=== PATIENT | male | born 1955 | race American Indian/Alaskan Native ===

== ENCOUNTER 2024-10-28 04:05 | Inpatient (IN) | payer MEDICARE, BC, SELFPAY ==
[2024-10-28] VITALS (54 sets, daily range): BP systolic 74–115; BP diastolic 48–64; BMI 23.8; BMI 23.3
[2024-10-28 02:07] LABS: Hematocrit 32.3 % (39.0-52.0); Hemoglobin 11.1 g/dL (13.0-18.0); Mean Corp Hgb Conc. 34.4 g/dL (33.0-37.0); Mean Corpuscular Volume 86.8 fL (80.0-94.0); Nucleated Red Blood Cells % 0 % (-); Platelet Count 213 10^3/uL (130-400); Red Cell Dist. Width 13.2 % (11.5-14.5)
[2024-10-28 02:17] LABS: INR 1.03; PT 14.0 Sec (11.4-14.6)
[2024-10-28] MEDS: NITROSTAT (SUBLINGUAL) 0.4 MG SL (02:21)
[2024-10-28 02:29] LABS: ALT (SGPT) 37 U/L (0-50); AST (SGOT) 70 U/L (17-59); Albumin 4.9 g/dl (3.5-5.0); Alkaline Phosphatase 34 U/L (38-126); Blood Urea Nitrogen 17 mg/dl (9-20); Calcium 9.5 mg/dl (8.4-10.2); Carbon Dioxide 22 mmol/L (22-30); Chloride 98 mmol/L (98-107); Estimated Creatinine Clearance 66 ml/min; Glucose 147 mg/dl (70-99); Potassium 3.8 mmol/L (3.5-5.1); Sodium 132 mmol/L (135-145); Total Protein 7.5 g/dl (6.3-8.2); eGFR > 60.00
[2024-10-28] MEDS: NSS 1000 IV (02:38)
[2024-10-28 02:43] LABS: Troponin I 6.590 ng/ml
--- NOTE | 2024-10-28 03:15 | ED.GENMED ---
History of Present Illness
General
Chief Complaint: Chest Pain
Source: patient and family
Exam Limitations: none
Time Seen by Provider: 10/28/24 02:00
Nursing documentation reviewed up to this point in time: agreed with
History of Present Illness
History of Present Illness:
Note:
CHIEF COMPLAINT(S)
Stomach pain.
HISTORY OF PRESENT ILLNESS
The patient is a 69-year-old male presenting with stomach pain that began yesterday, around 3 or 4 in the afternoon. The patient describes the pain as primarily located in the upper epigastric region and denies any radiation of the pain. The
discomfort has been persistent and severe enough to disrupt sleep. The patient has an extensive cardiac history, including a history of stenting, though all cardiac care has been performed in [facility]. Current medications include aspirin 100 mg
daily. The patient reports discomfort upon presentation, with an electrocardiogram (EKG) showing changes suggestive of ischemia.
EXTERNAL RECORDS REVIEWED
Previous EKG from 2008 was reviewed, and current EKG shows significant changes indicating potential ischemia.
CHRONIC MEDICAL CONDITIONS SIGNIFICANTLY AFFECTING CARE
The patient has a history of cardiac stenting and potentially elevated cholesterol, as indicated by medication use.
FAMILY HISTORY
Both parents had a history of heart attacks.
SOCIAL HISTORY
The patient previously smoked but quit in 1989.
MEDICATIONS
Aspirin 100 mg daily.
REVIEW OF SYSTEMS
- Cardiovascular: Reports chest discomfort/nonspecific epigastric discomfort.
- Gastrointestinal: Reports epigastric pain without radiation.
PHYSICAL EXAM
General: Alert, minimal acute distress.
Skin: Warm, dry.
Head: Normocephalic, atraumatic.
Neck: Supple, trachea midline.
Eye, Ears, Nose, Mouth and Throat: Oral mucosa moist.
Cardiovascular: Normal peripheral perfusion, No edema.
Respiratory: Respirations are non-labored.
Gastrointestinal: Abdomen nondistended.
Back: Normal range of motion, Normal alignment.
Musculoskeletal: Normal ROM, normal strength.
Neurological: Alert and oriented to person, place, time, and situation, No focal neurological deficit observed.
Psychiatric: Cooperative, appropriate mood & affect.
PROBLEM LIST
Acute Problems:
- Chest pain/epigastric discomfort
- EKG changes suggestive of ischemia
PLAN
The plan includes performing serial EKGs over the next hour, obtaining blood work, and providing medication therapy starting with aspirin and nitroglycerin to alleviate chest discomfort. The patient is instructed to report any improvement,
worsening, or changes in symptoms for further evaluation and potential escalation of care to catheterization if indicated.
DIFFERENTIAL DIAGNOSIS
The Differential Diagnosis includes, in no particular order and is not limited to:
1. Myocardial Ischemia
2. Acute Coronary Syndrome
3. Gastroesophageal Reflux Disease
4. Peptic Ulcer Disease
5. Pericarditis
6. Esophageal Spasm
7. Gastritis
8. Pancreatitis
9. Aortic Dissection
10. Anxiety-Induced Chest Pain
Disposition:
SUMMARY OF ENCOUNTER
The patient, a 69-year-old male with a history of cardiac procedures including stenting performed in [facility], presented to the emergency department with substernal chest pain that began approximately 12 hours prior to arrival. An electrocardiogram
(EKG) showed diffuse ischemic changes compared to a 2008 EKG, with no more recent EKGs available for comparison. The patients troponin level was elevated, consistent with ischemic changes. After consultation with the patients individual
voice systems engineer, it was determined that there was no need for a ST-elevation myocardial infarction (STEMI) alert, but the voice systems engineer concurred with the ischemic findings. The plan is to keep the patient for observation and cardiac catheterization in
the morning. The chest discomfort has somewhat improved since arrival.
DISPOSITION
Admit
ASSESSMENT
The patients presentation is consistent with myocardial ischemia, as evidenced by the EKG findings and elevated troponin levels.
MANAGEMENT OF THE PATIENTS CARE WAS DISCUSSED WITH
The patient�s individual voice systems engineer was consulted and agreed with the interpretation of the EKG and the plan for management, including admission and planned catheterization.
DIAGNOSIS
Myocardial Ischemia - ICD-10 Code: I25.10
Review of Systems
Review of Systems
Allergies reviewed?: Yes
All Other Systems: ROS reviewed and negative except as documented in HPI and ROS
Constitutional: Reports no symptoms
EENT: Reports no symptoms
Respiratory: Reports no symptoms
Cardiac: Reports chest pain
ABD/GI: Reports no symptoms
: Reports no symptoms
Musculoskeletal: Reports no symptoms
Skin: Reports no symptoms
Neurological: Reports no symptoms
Endocrine: Reports no symptoms
Hematologic/Lymphatic: Reports no symptoms
Psychiatric: Reports no symptoms
Phy Exam
General Physical Exam
General Presentation: mild distress
General Skin: warm and dry
General Habitus: normal
General Mental: alert
General Hydration: appears well hydrated
ENT Exam
ENT Exam: EOMI, pharynx normal, neck supple and normocephalic
Eye Exam
Eye Exam: PERRL, cornea clear and conjunctiva normal
Cardiovascular Exam
Cardiovascular Exam: regular rate/rhythm, no edema, no murmur and normal peripheral pulses
Pulmonary Exam
Pulmonary Exam: lungs clear, no respiratory distress, no rales, no crackles, no rhonchi, no stridor, no wheezing and no cough
Gastrointestinal Exam
Gastrointestinal Exam: normal bowel sounds, non tender, soft, no organomegaly, no pulsatile mass and non distended
Neurological Exam
Neurological Exam: alert, oriented x3, no motor deficits and speech normal
Musculoskeletal Exam
Musculoskeletal Exam: full ROM and no edema
Skin Exam
Skin Exam: normal color, warm/dry, no rash and no petechia
Psychiatric Exam
Psychiatric Exam: normal mood/affect
Scores
Heart Score for Chest Pain Patients
STEMI patient?: No
History: Highly Suspicious
ECG: Significant ST-Depression
Age: >/= 65 years
Risk Factors: >/= 3 Risk Factors or History of CAD
Troponin: >/= 3 x Normal Limit
Heart Score for Chest Pain Patients: 10
Heart Score Risk: 72.7 % MACE over next 6 weeks
Course
Orders/Labs/Results
Orders:
Orders
10/28/24 01:43
ECG [Electrocardiogram (*1)] Urgent
Reason for Study: Chest Pain
EKG- Treatment ONCE
10/28/24 01:54
Electrocardiogram (*1) Urgent
Reason for Study: Other
Other Reason for Exam: Respiratory Distress
Cardiac Monitoring- Treatment ONCE
EKG- Treatment ONCE
IV Insert/Care/Rem.- Treatment PRN
O2 Therapy [RESP] Urgent
Titrate/Wean O2 to maintain O2 sat greater than (%): 93
Special Instructions: TO MAINTAIN CONTINUOUS O2 SATS >/= 93%
Pulse Ox/cont/shift [RESP] Urgent
Quantity: 1
Special Instructions: continuous pulse ox
10/28/24 01:56
Complete Blood Count/With Diff Urgent
Comprehensive Metabolic Panel Urgent
Glycohemoglobin (HgbA1c) Urgent
NT-proBNP Urgent
Troponin I Urgent
10/28/24 01:59
PT/INR [Prothrombin Time] Urgent
Is patient on Coumadin/Warfarin?: No
10/28/24 02:00
Nitroglycerin Sublingual [Nitrostat (Sublingual)] 0.4 mg SL [id number] PRN
10/28/24 02:01
CR Chest Portable - 1 View Urgent
Comment:
Reason For Exam: cp
Reason Study Needs to be Portable: Patient Unstable
10/28/24 02:08
Electrocardiogram (*1) Urgent
Reason for Study: Chest Pain
EKG- Treatment ONCE
10/28/24 02:36
0.9% Sodium Chloride 1000 ml [Nss] 1,000 ml IV 250 mls/hr
10/28/24 02:59
EKG PRN [ECG as needed] As Directed
ECG as needed for:: Chest Pain
Rhythm Change
10/28/24 03:03
Heparin 3,800 units IV NOW STA
Nursing to Place Non Medication Order As Directed
Physician Order: PTT 6 hours after initial start of Heparin infusion
10/28/24 03:15
Heparin 61830 Units/250 ml 25,000 units in 250 ml IV PER PROTOCOL
Weight to be used for heparin protocol in kilograms (kg):: 62.8
Protocol:: Cardiac Tx/Acute Coronary
PTT Goal Range to be used:: PTT 73 to 111 seconds
Order type:: Initial
INITIAL Infusion Dose (UNITS/KG/hr) & then follow protocol:: 15 units/kg/hr
Infusion Dose in UNITS/hr & then follow protocol (UNITS/hr):: 950
INFUSION RATE in mL/hr & then follow protocol (mL/hr):: 9.5
PTT less than or equal to 64 seconds:: Increase rate by 200 units/hr (+ 2 mL/hr)
PTT 64.1 to 72.9 seconds:: Increase rate by 100 units/hr (+ 1 mL/hr)
PTT 73 to 111 seconds:: Target Range. No change in rate.
PTT 111.1 to 130.9 seconds:: Decrease rate by 100 units/hr (- 1 mL/hr)
PTT 131 to 199.9 seconds:: HOLD for 1 hr. Then decrease rate by 200 units/hr (- 2 mL/hr)
PTT greater than or equal to 200 seconds:: HOLD for 2 hrs & Notify Provider. Then decrease by 200 units/hr (-
2 mL/hr)
Lab follow-up:: Each change, PTT q6h until 2 consecutive are therapeutic. Then PTT
daily.
10/28/24 03:19
Morphine Sulfate 4 mg IV NOW STA
Ondansetron Injectable [Zofran] 4 mg IV NOW STA
10/28/24 03:44
Admit/Transfer Patient As Directed
Co-Sign Provider:
Level of Care: Inpatient admission
Assign to:: IVU
Physician / Group: Chema
Diagnosis: NSTEMI / ACS
Reason for Hospitalization: NSTEMI / ACS
Expected length of stay greater than two midnights?: Yes
ELOS- Estimated Length of Stay in days: 3
I certify the patient meets the requirements for IP care: Yes
PRN Pain Medication Management As Directed
May give lesser potent ordered pain med per pt: Yes
preference::
Protocol:: Medication orders for pain may be administered in a
manner that supports deferring to patient preference
when the pt is:
- Requesting an ordered lesser potent pain medication.
Least to most potent pain medications are defined
as: acetaminophen < NSAID < tramadol < opioids
(morphine, oxycodone, hydromorphone).
- Requesting a lesser dose of the same medication IF
ORDERED.
- Requesting a less intrusive route of administration
if both routes are prescribed by the provider (PO <
IV).
10/28/24 03:45
Code Status As Directed
Resuscitation Status: Full Code
10/28/24 Breakfast
NPO
Allow oral meds: Yes
Allow clear liquids: Sips of Clears
10/28/24 06:19
Acetaminophen [Tylenol] 650 mg PO Q4HPRN PRN
Dextrose 50%-Water [Dextrose 50% Syringe] 12.5 grams IV [id number] PRN
Glucagon [GlucaGen] 1 mg IM PRN PRN
Morphine Sulfate 2 mg IV Q4HPRN PRN
Nitroglycerin Sublingual [Nitrostat (Sublingual)] 0.4 mg SL [id number] PRN
10/28/24 06:19
CARDIOLOGY CONSULT Routine
Consulting Provider: Sarthak Houser
Was physician already notified: Yes
Reason for consult: NSTEMI / ACS
Heparin Protocol- PTT Orders As Directed
PTT per Heparin protocol: -Obtain CBC and baseline PTT - if not already collected.
-Obtain PTT 6 hours from start of infusion. Then, every 6 hours until 2 consecutive
PTT's are therapeutic. Then, PTT Daily.
-With each rate change, obtain PTT every 6 hours until 2 consecutive PTT's are
therapeutic. Then, PTT Daily.
Activity As Directed
Activity Level: Bedrest
Bathroom Privileges
Comment: staND TO VOID ONLY
Bedside Glucose Monitoring As Directed
Frequency: AC&HS
Additional Instructions:: Change to q6h if pt on TPN, tube feeding or not eating
Bladder Scan As Directed
Follow Bladder Retention/Intermittent Cath Algorithm?: Yes
PRN if no void in __ hours: 6
Frequency: Per Retention Algorithm
If Bladder Scan Result >: 400
then:: Straight cath
EKG with chest pain [ECG as needed] As Directed
ECG as needed for:: Chest Pain
I/O [Intake/ Output] As Directed
Frequency: Per unit guidelines
Notify MD As Directed
Notify physician if: PTT is greater than or equal to 200.
Straight Cath As Directed
Frequency: Per Retention Algorithm
Additional Instructions: straight cath as needed per acute urinary retention algorithm for 24 hrs
Additional Instructions: for bladder scan greater than 400 mL
Vital Signs As Directed
Frequency: Per unit guidelines
Weight As Directed
Frequency: Daily
Oxygen Therapy [O2 Therapy] [RESP] Routine
Titrate/Wean O2 to maintain O2 sat greater than (%): 94
10/28/24 06:38
Troponin I Q6H
10/28/24 07:30
Insulin Aspart Corrective Low [Novolog Flexpen-Low Resistance] See Protocol SC AC
10/28/24 08:00
Aspirin Low Dose EC [Aspir Low (Enteric Coated)] 81 mg PO DAILY
Pantoprazole [Protonix IV] 40 mg IV DAILY
10/28/24 09:19
PTT Urgent
Comment: Obtain baseline before beginning heparin infusion if not already collected
10/28/24 12:19
Troponin I Q6H
10/28/24 18:00
Rosuvastatin Calcium [Crestor] 40 mg PO QPM
10/28/24 18:19
Troponin I Q6H
10/29/24 06:00
EKG [Electrocardiogram (*1)] IN AM
Reason for Study: Chest Pain
Basic Metabolic Panel IN AM
Cardiovascular Evaluation IN AM
10/30/24 06:00
Complete Blood Count/No Diff Q2D
Comment: notify provider: Platelet count < 130,000 or decrease by 50% from baseline
11/01/24 06:00
Complete Blood Count/No Diff Q2D
Comment: notify provider: Platelet count < 130,000 or decrease by 50% from baseline
11/03/24 06:00
Complete Blood Count/No Diff Q2D
Comment: notify provider: Platelet count < 130,000 or decrease by 50% from baseline
11/05/24 06:00
Complete Blood Count/No Diff Q2D
Comment: notify provider: Platelet count < 130,000 or decrease by 50% from baseline
11/07/24 06:00
Complete Blood Count/No Diff Q2D
Comment: notify provider: Platelet count < 130,000 or decrease by 50% from baseline
11/09/24 06:00
Complete Blood Count/No Diff Q2D
Comment: notify provider: Platelet count < 130,000 or decrease by 50% from baseline
11/11/24 06:00
Complete Blood Count/No Diff Q2D
Comment: notify provider: Platelet count < 130,000 or decrease by 50% from baseline
11/13/24 06:00
Complete Blood Count/No Diff Q2D
Comment: notify provider: Platelet count < 130,000 or decrease by 50% from baseline
Abnormal Lab Results
10/28/24
01:56
WBC 12.0 H 10^3/uL
(4.8-10.8)
RBC 3.72 L 10^6/uL
(4.70-6.10)
Hgb 11.1 L g/dL
(13.0-18.0)
Hct 32.3 L %
(39.0-52.0)
MPV 10.8 H fL
(7.4-10.4)
Absolute Neuts (auto) 8.0 H 10^3/uL
(1.4-6.5)
Absolute Monos (auto) 1.2 H 10^3/uL
(0.1-0.6)
Monocytes % 10.1 H %
(1.7-9.3)
Sodium 132 L mmol/L
(135-145)
Glucose 147 H mg/dl
(70-99)
AST 70 H U/L
(17-59)
Alkaline Phosphatase 34 L U/L
(38-126)
Troponin I 6.590 H* ng/ml
10/28/24 01:56
10/28/24 01:56
Vital Signs
Initial and Last Documented VS:
Initial Vital Signs
Temp Pulse Resp BP Pulse Ox
98.1 F 80 18 100/50 100
10/28/24 01:47 10/28/24 01:47 10/28/24 01:47 10/28/24 01:47 10/28/24 01:47
Last Documented Vital Signs
Temp Pulse Resp BP Pulse Ox
98.1 F 82 26 95/57 95
10/28/24 01:47 10/28/24 06:45 10/28/24 06:45 10/28/24 06:45 10/28/24 06:45
*Pulse Oximetry
SaO2: 100
Oxygen Mode of Delivery: Room air
Patient hypoxic: no
*Critical Care Note
Total Time (30-74mins, 75-104mins- exclusive of procedures): 33 (Critical care statement: A total of 33 minutes of critical care time was provided for this patient. This time is separate from time utilized to perform the aforementioned documented
procedures. Aggregate critical care time includes only time during which I was engaged in work [facility])
Update Note
Update Note:
Initial EKG at 1:[address] elevations in a singular lead aVR with ischemia present in 2 3 and aVF as well as V6 V5 V4 and V3 as indicated by deep ST depressions. This is a change from previous EKG in 2008. EKG taken at 2:13 AM is very
similar morphology as well as the EKG taken at 3:01 AM. All EKGs indicate inferior lateral ischemia
ED Attending Note
-
Portions of this chart may have been created with voice recognition software.� Occasional wrong word or��sound alike� substitutions may have occurred due to the inherent limitations of voice recognition software.
Discharge Plan
Departure
Patient Disposition: Admit
Date of Disposition: 10/28/24
Time of Disposition: 03:17
Admit to: IVU
Presentation/result/management discussed w/ accepting MD/DO: Hospitalist
Condition: Serious
Discharge Problem:
Non-ST elevated myocardial infarction (non-STEMI)
Interventions
Interventions:
*Risk Screen - Suicide Last Done: 10/28/24 02:03
*General Assessment Last Done: 10/28/24 02:03
*Neglect/Abuse Screening Last Done: 10/28/24 02:03
*ED- Fall Risk Assessment Last Done: 10/28/24 02:03
*ED COVID-19 Vaccine History Last Done: 10/28/24 02:03
*Nursing Disposition Last Done: 10/28/24 06:05
ED- Cardiac Assessment Last Done: 10/28/24 02:03
Discharge Date and Time
Discharge Date/Time: 10/28/24 06:05
[2024-10-28] MEDS: HEPARIN 3800 UNITS IV (03:18)
[2024-10-28] MEDS: HEPARIN 25000 UNITS/250 ML IV ×2 (03:19→19:28)
[2024-10-28] MEDS: ZOFRAN 4 MG IV ×2 (03:38→18:27)
[2024-10-28] MEDS: MORPHINE SULFATE 4 MG IV (03:43)
--- NOTE | 2024-10-28 03:47 | HPS.HSE ---
Family Physician
-
Family Physician: * NONE
Chief Complaint
-
Epigastric Pain
History of Present Illness
Patient is a 69y M with PMH significant for ASCVD and DM-II who presents to ED complaining of epigastric discomfort for > 24 hours. Patient states that the discomfort started Thursday afternoon around 3PM. He reports a fullness or pressure in
the epigastric region. He states that it felt as if he needed to belch but was unable to do so. He does note that the discomfort radiated into the jaw and into the L arm. He denies any associated nausea, dyspnea or diaphoresis. He states that
this discomfort has remained a steady 5/10 over the past 36 hours. He denies any prior history of similar symptoms.
In the ED patient appears to be resting comfortably; though, he continues to report 5/10 epigastric discomfort.
He has a prior history of PTCA with stent x 2 in 2019. He has mostly been followed by physicians in [facility].
Medical History
Past Medical History
Past Medical History: Reports Other
Additional Past Medical History:
ASCVD
DM-II
BPH
GERD / H pylori
MASLD
Past Surgical History: Reports Other
Additional Past Surgical History:
PTCA with Stent x 2 (2019)
Cataracts
Social History
Tobacco: Former Smoker (Quit smoking in 1989.)
Alcohol: Occasional (Rare)
Personal:
Family History
Family History: Other (Mother / Father: CAD)
Allergies / Home Medications
Allergies reflects when Allergies were last updated in [employer].
Home Medications with original date entered in [employer]
Allergy/Medication List:
Allergies
Allergy/AdvReac Type Severity Reaction Status Date / Time
Penicillins Allergy Unknown Verified 02/24/09 13:50
Home Medications
aspirin 81 mg tablet 100 mg PO DAILY 02/24/09
simvastatin 10 mg tablet 20 mg PO DAILY 02/24/09
bisoprolol fumarate 2.5 mg tablet 2.5 mg PO DAILY 10/28/24
metformin 500 mg tablet 500 mg PO BID 10/28/24
montelukast 10 mg tablet 10 mg PO DAILY 10/28/24
rosuvastatin 20 mg tablet 20 mg PO DAILY 10/28/24
silodosin 8 mg capsule 8 mg PO DAILY 10/28/24
valsartan 80 mg tablet (Diovan) 80 mg PO DAILY 10/28/24
Review of Systems
-
History Source: Patient
A 12 point ROS was completed and negative except as noted: Yes
Constitutional: Denies Fever, Fatigue or Chills
EENT: Denies Sore Throat
Respiratory: Denies Cough or Trouble Breathing
Cardiac: Reports Chest Pain; Denies Diaphoresis, Palpitations or Syncope
Abdomen/GI: Reports Abdominal Pain; Denies Nausea, Vomiting, Diarrhea, Bloody Stools or Black Stools
: Denies Dysuria or Frequency
Musculoskeletal: Denies Joint Pain or Edema
Neurological: Denies Dizzy or Headache
Psych: Denies Depression or Anxiety
Physical Exam
Vital Signs
Vital Signs
Temp Pulse Resp BP Pulse Ox
98.1 F 80 19 74/50 100
10/28/24 01:47 10/28/24 02:15 10/28/24 01:57 10/28/24 02:26 10/28/24 03:16
Physical Exam
General: Other (69y M in no acute distress.)
HEENT: Moist mucous membranes and PERRLA
Respiratory: Other (Few bibasilar rales. No wheeze / rhonchi.)
Cardiac: S1/S2 and Regular Rhythm; No Murmur
GI: Soft, Non Tender, Non Distended and Normal Bowel Sounds
Musculoskeletal: No Clubbing, No Cyanosis and No Edema
Neuro: AO x 3
Laboratory Results
-
10/28/24 01:56
10/28/24 01:56
Laboratory Results
PT 14.0 Sec (11.4-14.6) 10/28/24 01:59
INR 1.03 10/28/24 01:59
Total Bilirubin 1.1 mg/dl (0.2-1.3) 10/28/24 01:56
AST 70 U/L (17-59) H 10/28/24 01:56
ALT 37 U/L (0-50) 10/28/24 01:56
Alkaline Phosphatase 34 U/L (38-126) L 10/28/24 01:56
Troponin I 6.590 ng/ml H* 10/28/24 01:56
Impression/Plan
-
A/P: Patient is a 69y M with PMH significant for ASCVD, DM-II and GERD who presents to ED complaining of epigastric pain for > 24 hours.
NSTEMI / ACS
ASCVD
- Admit to IVU for further evaluation and treatment.
- Discomfort for > 24 hours, ischemic-appearing EKG and abnormal troponin (6.59 on initial set).
- IV heparin, morphine / NTG as needed for symptom control.
- ASA daily. High-intensity statin. Check lipids, A1C, etc.
- Cardiology consulted for likely ischemic evaluation in the AM.
- Follow serial troponin to peak.
- Monitor for any new / worsening symptoms.
- IVF boluses as needed to maintain adequate BP / perfusion.
- Hold valsartan and bisoprolol acutely. Caution with preload reducing agents given hypotension.
DM-II
MASLD
- Stable. Hold metformin.
- Follow glucose and cover with SSI as needed.
- Update A1C.
GERD
- PPI daily - but suspect current symptoms are more cardiac in origin given EKG, troponin changes, etc.
BPH
- Stable. Hold silodosin acutely given hypotension.
- Bladder scan protocol.
DVT Prophylaxis: On IV Heparin
Code Status: Full
--- NOTE | 2024-10-28 06:19 | PTCARENOTE ---
Patient received from the ED via stretcher accompanied by RN. Transferred and admitted to ICU bed 3362. CHG bath, fresh linens, placed on CM. SR with 1st degree AVB and BBB. No N/V, dizziness or SOB. C/o mild substernal chest discomfort 07/14
unchanged from previous. Patient c/o urge to void and inability to do so. Bladder scan performed after patient voided 50cc; 783cc noted. Abdomen with palpable bladder. Assisted to sit at bedside with void unsuccessful. Contacted Caprice Hernandes [facility] for
orders for patient to stand at the bedside to void, received. Patient assisted to stand at bedside, no dizziness, SOB or worsening chest discomfort. Voids 600cc. Troponin drawn. Heparin gtt at 950units/hr to right wrist IV site, WDL. Left AC #18
with good blood return and flushes easily. NPO. Weight obtained. Bed in low and locked position. Call park within reach. Report given verbally to oncoming shift, Tess DAVIS. Questions answered.
[2024-10-28 07:26] LABS: Troponin I 5.900 ng/ml
--- NOTE | 2024-10-28 07:30 | PTCARENOTE ---
Received patient A&Ox4, on NC 2L, O2 sat @97%, NSR w/ RBB in 80s, BP soft, denied chest pain currently, on Heparin gtt @9.5mL/hr, NPO, continent.
--- NOTE | 2024-10-28 07:49 | W.PN.HOSP.TC ---
Today's Communication/Plan
-
N.p.o.
Await cardiology input
Assessment / Plan
Assessment / Plan
Gen-AAOx3, NAD
HEENT-NC, AT, anicteric, clear oral mm
Neck-supple
CV-reg, no M, +S1/S2
Lungs-clear B/L
Abd-soft, NT, ND
Ext-no edema
Musculoskeletal-no cyanosis, clubbing
Skin-warm and dry
Neuro-grossly non-focal
Psych-calm, cooperative
ACS/NSTEMI -currently n.p.o., awaiting cardiology input and possible catheterization today. Troponin trending down. Denies any further symptoms.
Symptoms that prompted his admission consisted of a feeling of having to belch. Denied any chest pain or pressure. Did have some radiation to the jaw on the left arm.
DM2 without hyperglycemia -glucose 147 this morning. Hold metformin. Low resistance NovoLog scale. Check hemoglobin A1c.
Hyponatremia -present on admission. Monitor for now.
Essential hypertension -currently hypotensive but asymptomatic. Does not check blood pressures at home, encouraged patient to start checking.
Home meds consisting of bisoprolol and valsartan on hold for hypotension. Suspect hypotension is a chronic issue. Patient states that he was told he was hypotensive by previous physicians.
Normocytic anemia -unknown acuity, etiology. Monitor for now.
Hyperlipidemia -on simvastatin. Mild AST elevation noted, 70. ALT normal.
MASLD -outpatient follow-up.
BPH
GERD
Full code
Anticipated Discharge: 24 - 48 hours
Subjective/Interval History
-
Date of Service: October 28, 2024
Patient seen and examined. No complaints currently.
Objective Data
-
Labs:
Laboratory Results
10/28/24 10/28/24 10/28/24
01:56 01:59 03:03
WBC 12.0 H
Hgb 11.1 L
Hct 32.3 L
Plt Count 213
PT 14.0
INR 1.03
APTT Cancelled
Sodium 132 L
Potassium 3.8
Chloride 98
Carbon Dioxide 22
BUN 17
Creatinine 0.9
Glucose 147 H
Calcium 9.5
Total Bilirubin 1.1
AST 70 H
ALT 37
Alkaline Phosphatase 34 L
10/28/24
09:19
WBC
Hgb
Hct
Plt Count
PT
INR
APTT Pending
Sodium
Potassium
Chloride
Carbon Dioxide
BUN
Creatinine
Glucose
Calcium
Total Bilirubin
AST
ALT
Alkaline Phosphatase
Vital Signs:
Vital Signs
Temp Pulse Resp BP Pulse Ox
98.1 F 82 26 95/57 95
10/28/24 01:47 10/28/24 06:45 10/28/24 06:45 10/28/24 06:45 10/28/24 06:45
I&O
10/27/24 10/28/24 10/29/24
06:59 06:59 06:59
Output Total 600 / 600
Balance -600 / -600
Review of Systems
-
History Source: Patient
All other systems: Reviewed and negative
[2024-10-28 08:13] LABS: Glucose - Point of Care 139 mg/dl (70-99)
[2024-10-28] MEDS: NOVOLOG FLEXPEN-LOW RESISTANCE SC ×4 (08:30→18:27)
--- NOTE | 2024-10-28 08:30 | PTCARENOTE ---
Patient gave consent to this RN to access his previous 2019 PCI report from his phone. This RN printed out a copy and placed in the chart. An additional copy was given to the patient.
--- NOTE | 2024-10-28 09:17 | CON.CAR ---
Addendum entered and electronically signed by Master Christine MD 10/28/24 11:36:
I saw and examined the patient.
The Hydro Pneumatic Tester's note was reviewed and I agree with the note.
Comment:
GEN: No distress, awake, Ox3
HEENT: supple, anicteric, mmm
LUNGS: CTA, no wheezes/rales
CV: Reg, S1/S2, 1/6 syst LSB, no murmur
ABD: soft, BS+, NT/ND
EXT: No edema
NEURO: Gross non-focal
SKIN: No rash
Plan:
69-year-old male with past medical history of coronary artery disease last RCA PCI 2018, diabetes, hypertension, hyperlipidemia and GERD presents with severe epigastric discomfort and belching. This started several days ago and continues to
progress. He felt full in his epigastric area. The pain started several days ago and persisted. It did not radiate. He had no associated shortness of breath. Upon arrival he continued to have 5 out of 10 pain and troponin was 6.5. EKG is right
bundle branch block with marked ST abnormalities. He was given IV heparin sublingual nitroglycerin and morphine. He states his pain has resolved.
Non-STEMI with history of CAD
Plan will be to proceed with cardiac catheterization today. Continue aspirin, heparin, and rosuvastatin.
LDL 51.
He does have some mild anemia with hemoglobin of 11.1. Continue to follow.
Blood pressure remains marginal will hold on beta-marianela therapy for now. Would also hold Diovan.
Check echocardiogram today.
I will hold off on Plavix or Brilinta for now as I suspect he may have multivessel disease and may need bypass surgery.
Original Note:
Consultation
Consultation Request
Date/Time Consultation Requested: 10/28/2024
Date/Time Consultation Performed: 10/28/2024
Requesting Provider: Dr. Hook
Performing Provider: Symone Rico PA-C for Dr. Grzywacz
Reason for Consultation: NSTEMI
Medical History
-
History of Present Illness:
HPI: Owen is a 69 year old male with PMH of CAD w/ prior overlapping stents of the proximal RCA in 2018, DM2, HLD, HTN, and GERD. Presented to [facility] ER for evaluation of epigastric chest discomfort. Pain started a few days ago and he describes it as
a feeling of fullness or needing to belch, but being unable to. Denies any SOB or diaphoresis. Pain centrally located, but does radiate into jaw and L arm at times. Due to persistent pain, he came to ER for evaluation. On arrival, pain continued at
a 5/10 in severity. Labwork revealed elevated troponin of 6.59. EKG with RBBB and significant ST depressions. He was started on IV heparin and given SL nitro and morphine. Pain improved this AM. Repeat troponin trending down, however given h/o CAD
w/ recurrent symptoms concerning for angina, cardiology consulted.
PMH:
CAD
s/p prox RCA PCI 03/29/2019
DM2
HLD
HTN
GERD
Past Medical History
Past Medical History: Other (In HPI)
Past Surgical History: Cardiac (Overlapping RCA stents 03/2019) and Other (cataracts)
Social History
Tobacco: Former Smoker
Alcohol: Occasional
Personal:
Living: With Family
Family History
Family History: CAD
Allergies / Home Medications
Allergy/AdvReac Type Severity Reaction Status Date / Time
Penicillins Allergy Unknown Verified 02/24/09 13:50
�Medication �Instructions �Recorded �Confirmed �Type
aspirin 81 mg tablet 100 mg PO DAILY 02/24/09 10/28/24 History
simvastatin 10 mg tablet 20 mg PO DAILY 02/24/09 10/28/24 History
bisoprolol fumarate 2.5 mg tablet 2.5 mg PO DAILY 10/28/24 10/28/24 History
metformin 500 mg tablet 500 mg PO BID 10/28/24 10/28/24 History
montelukast 10 mg tablet 10 mg PO DAILY 10/28/24 10/28/24 History
rosuvastatin 20 mg tablet 20 mg PO DAILY 10/28/24 10/28/24 History
silodosin 8 mg capsule 8 mg PO DAILY 10/28/24 10/28/24 History
valsartan 80 mg tablet (Diovan) 80 mg PO DAILY 10/28/24 10/28/24 History
Review of Systems
-
History Source: Patient
All other systems: Negative unless noted
Physical Exam
Vital Signs
Temp Pulse Resp BP Pulse Ox
98.2 F 82 26 95/57 95
10/28/24 08:13 10/28/24 06:45 10/28/24 06:45 10/28/24 06:45 10/28/24 06:45
Lab Results
10/28/24 01:56
Troponin I Cancelled 10/28/24 18:19
Xug-R-Usnyxxqmaqv Pept 4530 pg/ml 10/28/24 01:56
Physical Exam
General: Well Developed, Well Nourished and No Apparent Distress
HEENT: Normocephalic and Moist Mucous Membranes
Respiratory: Clear and Non Labored Respirations
Cardiac: Regular Rhythm
Musculoskeletal: No Clubbing, No Cyanosis and No Edema
Skin: Warm and Dry
Neuro: AO x 3 and Nonfocal/Grossly Intact
Psych: Calm
Impression / Plan
-
PCP: Unknown
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
Impression:
Presented with epigastric chest pain
NSTEMI
CAD
s/p prox RCA PCI 03/29/2019
DM2
HLD
HTN
GERD
Echo 10/28/2024: Study completed, report pending
Plan:
-Presented with epigastric chest pain concerning for angina. Admitted with NSTEMI. Initial troponin 6.59, trending down thereafter.
-Continue IV heparin.
-On aspirin 100mg daily as OP, continue aspirin 81mg daily while admitted.
-Echo 10/28 completed, await report.
-Plan is for [facility] today. Keep NPO.
-BP on lower side. Asymptomatic. Valsartan and bisoprolol on hold.
-Continue crestor. LDL pending
-Known DM 2. Hgb A1c 6.5%.
-Further recommendations to be made post cath.
HPI: Owen is a 69 year old male with PMH of CAD w/ prior overlapping stents of the proximal RCA in 2019, DM2, HLD, HTN, and GERD. Presented to [facility] ER for evaluation of epigastric chest discomfort. Pain started a few days ago and he describes it as
a feeling of fullness or needing to belch, but being unable to. Denies any SOB or diaphoresis. Pain centrally located, but does radiate into jaw and L arm at times. Due to persistent pain, he came to ER for evaluation. On arrival, pain continued at
a 5/10 in severity. Labwork revealed elevated troponin of 6.59. EKG with RBBB and significant ST depressions. He was started on IV heparin and given SL nitro and morphine. Pain improved this AM. Repeat troponin trending down, however given h/o CAD
w/ recurrent symptoms concerning for angina, cardiology consulted.
Data Reviewed
-
EKG: Tracing Personally Visualized and interpreted
Radiology: Report Reviewed by me
Labs: Labs Reviewed by me
Old Records: Reviewed
[2024-10-28 09:24] LABS: Glycohemoglobin (HgbA1c) 6.5 % (4.0-5.6)
[2024-10-28] MEDS: NSS (PRESERVATIVE FREE) 10 ML IV (09:51)
[2024-10-28] MEDS: PROTONIX IV 40 MG IV (09:51)
[2024-10-28] MEDS: ASPIR LOW (ENTERIC COATED) 81 MG PO (09:51)
[2024-10-28 10:35] LABS: APTT 97.8 Sec (23.4-35.0)
[2024-10-28 11:16] LABS: Blood Urea Nitrogen 14 mg/dl (9-20); Calcium 8.2 mg/dl (8.4-10.2); Carbon Dioxide 19 mmol/L (22-30); Chloride 110 mmol/L (98-107); Estimated Creatinine Clearance 74 ml/min; Glucose 119 mg/dl (70-99); HDL Cholesterol 33 mg/dl; LDL Cholesterol, Calculated 51 mg/dl; Potassium 3.7 mmol/L (3.5-5.1); Sodium 135 mmol/L (135-145); Very Low Density Lipoprotein 23 mg/dl (0-30); eGFR > 60.00
[2024-10-28 11:38] LABS: Glucose - Point of Care 120 mg/dl (70-99)
--- NOTE | 2024-10-28 13:15 | PTCARENOTE ---
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
--- NOTE | 2024-10-28 14:27 | ITS.CL.CATH ---
Bench Tool Maker - Catheterization
Cardiac Catheterization
Procedure Report:
LEFT HEART CATHETERIZATION
Date of Procedure: October 28, 2024
Referring: Dr. Buster Christine
PROCEDURES:
1. Left heart catheterization with coronary and single-plane left ventriculography
INDICATION: This is a 69-year-old diabetic gentleman with a prior history of coronary artery disease and history of rotational atherectomy and stenting of the proximal to mid right coronary artery while visiting [facility] several years ago. He
presented to [facility] with a 36-hour history of unabated substernal chest pressure. Diffuse ST segment depression was noted in the inferior and anterior leads with ST elevation noted in lead aVR. His troponin measured 6.59 ng/mL on
admission and 5.90 ng/mL when rechecked 5 hours later. He is now referred for coronary angiography
ACCESS: Right common femoral artery, 6 Sen[place]alese sheath
HEMODYNAMICS : (mmHg)
AO (s/d) : 100/53
LV (s/d) : 100/14
LVEDP : 34
CORONARY FINDINGS
DOMINANCE: Right
LEFT MAIN: Tubular 40% stenosis with additional distal tapering. There is no pressure dampening with engagement of a 6 [place]e diagnostic catheter
LEFT ANTERIOR DESCENDING: The LAD arises normally from the left main and is calcified in its proximal to midportion. The proximal LAD has a 50% stenosis with diffuse moderate atherosclerotic disease into the mid LAD where a long 60% stenosis is
noted in the mid LAD. The distal LAD wraps completely around the apex. The first diagonal branch is a moderate caliber vessel with a proximal 60% and focal 70% stenosis in its midportion
CIRCUMFLEX: The circumflex has an acute origin from the left main and is heavily calcified with a 95% ostial stenosis. OM1 is a moderate caliber vessel arising from the mid circumflex and has a 70% narrowing at its origin. OM 2 also has a 50%
ostial stenosis and is a smaller caliber vessel.
RIGHT CORONARY ARTERY: There are overlapping stents from the proximal to mid RCA which are 100% occluded. The distal vessel is noted to fill via ppfr-oc-ayziu collaterals. The distal right coronary artery fills via buql-mm-vilgy collaterals.
VENTRICULOGRAPHY: Left ventriculography is performed in an RAMIRES projection. The digital single-plane left ventricular ejection fraction is visually estimated at 45-50%. There is +2 mitral regurgitation
SEDATION: 31 minutes of procedural sedation was utilized. An independent medical tech was present to assist with and help manage the patient's level of consciousness and physiologic status.
RADIATION SUMMARY: Fluoro Time (min): 3.1, Dose (mGy): 371, DAP (Gy.cm2) : 30.1
Closure Device: 6 Senegalese Angio-Seal RFA
CONCLUSIONS
1. Multivessel coronary artery disease with chronic total occlusion of the proximal to mid RCA throughout the entire stented segment. The distal vessel is noted to fill via okvs-qh-veufj collaterals. There is a heavily calcified high-grade ostial
stenosis as the circumflex arises at an acute angle from the left main. The LAD is calcified with diffuse luminal irregularities and focal 60-70% mid stenosis. Branch vessel disease is noted at the origin of the diagonal branch, OM1, OM 2.
2. Low normal to mildly reduced LVEF estimated at 45-50% with basal inferolateral hypokinesis
RECOMMENDATIONS
1. The patient is diabetic with low normal to mildly reduced LVEF and multivessel coronary artery disease. He should be seen and evaluated by CT surgery for consideration of bypass.
Copy to: Dr. Buster Christine
[2024-10-28 14:44] LABS: Troponin I 3.880 ng/ml
--- NOTE | 2024-10-28 15:57 | CM ---
Initial assessment completed with patient who lives with his in a 2 story home with no basement, B/B on 2nd and 1/2 bath on 1st, 2 steps to enter. 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 No DME or in-home services. PCP is
unknown. He does have one but doesn't recall the name. This CM called but daughter said she is not available and daughter does not know name. Pharmacy is [facility]. No HC-POA. Discharge POC: Anticipate home with no needs.
--- NOTE | 2024-10-28 16:11 | CONSULT.CT ---
Consultation
-
Date/Time Consultation Requested: 10/28/24
Date/Time Consultation Performed: 10/28/24
Requesting Provider: Tavo Rey MD
Performing Provider: Christina HORNER for Tay Herrera MD
Reason for Consultation: CABG evaluation
Patient History
Physicians
Family Physician: unknown
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
History of Present Illness
69-year-old male (primary language [facility]-speaks and understands Azeri) with past medical history of coronary artery disease last RCA PCI 2018, diabetes, hypertension, hyperlipidemia and GERD was admitted to [facility] ER on 10/28/24 with a 7 day
history of intermittent epigastric discomfort that has increased in intensity. Endoses that legs felt 'heavy' with ambulation. No aggravating/relieving factors. Denies lower extremity edema, dizziness, or shortness of breath. Initial troponin I
was 6.5 consistent with NSTEMI. Pain relieved with IV heparin sublingual nitroglycerin and morphine. Patient underwent TTE and left heart cath today which reported low normal EF and triple vessel coronary disease. He is resting comfortably in bed.
Pertinent negatives: Denies CVA/TIA, dysphagia, asthma/COPD, gastric/duodenal ulcer, DVT/PE, cancer
Past Medical History
Past Medical History: CAD, GERD, Hypercholesterolemia, Hyperthyroidism, NIDDM and Other (BPH)
Past Surgical History
Past Surgical History: PCI/Stent (CUSTOM CLOTHIER 2018) and Other (B/L cataract extraction)
Family History
Family Medical History: CAD
Social History
Drug: None
Tobacco: Former Smoker (quit 1989)
Personal:
Living: With Spouse
Employment: Employed
Allergies
Allergy/AdvReac Type Severity Reaction Status Date / Time
Penicillins Allergy Unknown Verified 02/24/09 13:50
Home Medications
�Medication �Instructions �Recorded �Confirmed �Type
aspirin 81 mg tablet 100 mg PO DAILY 02/24/09 10/28/24 History
simvastatin 10 mg tablet 20 mg PO DAILY 02/24/09 10/28/24 History
bisoprolol fumarate 2.5 mg tablet 2.5 mg PO DAILY 10/28/24 10/28/24 History
metformin 500 mg tablet 500 mg PO BID 10/28/24 10/28/24 History
montelukast 10 mg tablet 10 mg PO DAILY 10/28/24 10/28/24 History
rosuvastatin 20 mg tablet 20 mg PO DAILY 10/28/24 10/28/24 History
silodosin 8 mg capsule 8 mg PO DAILY 10/28/24 10/28/24 History
valsartan 80 mg tablet (Diovan) 80 mg PO DAILY 10/28/24 10/28/24 History
Review of Systems
-
History Source: Patient
General: Reports No Symptoms
HEENT: Reports No Symptoms
Respiratory: Reports No Symptoms
Cardiac: Reports CAD
Abdomen/GI: Reports Abdominal Pain (epigastric pain on admission)
: Reports No Symptoms
Musculoskeletal: Reports No Symptoms
Skin: Reports No Symptoms
Neurological: Reports No Symptoms
Vascular: Reports No Symptoms
Physical Exam
Vital Signs
Temp 98.7 F 10/28/24 15:43
Temp route: Oral 10/28/24 15:43
Pulse 94 10/28/24 15:00
Rhythm: Normal sinus rhythm 10/28/24 08:00
With- Right Bundle Branch Block 10/28/24 08:00
Resp Rate 27 10/28/24 15:00
Blood pressure 102/55 10/28/24 15:00
Blood pressure extremity used: Left upper arm 10/28/24 06:30
Position: Lying 10/28/24 06:30
MAP (cuff-Ciirlo Monitor) 70 10/28/24 15:00
MAP 67 10/28/24 01:47
SaO2 96 10/28/24 15:00
Nasal Cannula flow liters per minute 1 10/28/24 08:00
Oxygen Mode of Delivery Room air 10/28/24 03:16
Can the patient verbally communicate their pain? Yes 10/28/24 08:00
Pain scale ratin 10/28/24 08:00
Actual Weight 61.6 kg 10/28/24 06:00
Body Mass Index (BMI) 23.3 10/28/24 06:00
Labs
10/28/24 01:56
10/28/24 09:50
PT 14.0 Sec (11.4-14.6) 10/28/24 01:59
APTT Cancelled 10/28/24 16:40
Hemoglobin A1c 6.5 % (4.0-5.6) H 10/28/24 01:56
Troponin I Cancelled 10/28/24 18:19
Swv-D-Zmldpmqzqlh Pept 4530 pg/ml 10/28/24 01:56
Diagnostic Studies
TTE 10/28/24:
EF 50-55%. Mild-moderate MR, mild TR
LHC 10/28/24:
LEFT MAIN: Tubular 40% stenosis with additional distal tapering. There is no pressure dampening with engagement of a 6 [place]er diagnostic catheter
LEFT ANTERIOR DESCENDING: The LAD arises normally from the left main and is calcified in its proximal to midportion. The proximal LAD has a 50% stenosis with diffuse moderate atherosclerotic disease into the mid LAD where a long 60% stenosis is
noted in the mid LAD. The distal LAD wraps completely around the apex. The first diagonal branch is a moderate caliber vessel with a proximal 60% and focal 70% stenosis in its midportion
CIRCUMFLEX: The circumflex has an acute origin from the left main and is heavily calcified with a 95% ostial stenosis. OM1 is a moderate caliber vessel arising from the mid circumflex and has a 70% narrowing at its origin. OM 2 also has a 50%
ostial stenosis and is a smaller caliber vessel.
RIGHT CORONARY ARTERY: There are overlapping stents from the proximal to mid RCA which are 100% occluded. The distal vessel is noted to fill via afnk-ic-vdcxy collaterals. The distal right coronary artery fills via hlej-vb-junnw collaterals.
VENTRICULOGRAPHY: Left ventriculography is performed in an RAMIRES projection. The digital single-plane left ventricular ejection fraction is visually estimated at 45-50%. There is +2 mitral regurgitation
Exam
General: Well Developed, Well Nourished and No Apparent Distress
HEENT: Normocephalic, Anicteric, Moist Mucous Membranes and PERRLA
Neck: Trachea Midline
Respiratory: Clear
Cardiac: S1/S2 and Regular Rhythm
GI: Soft, Non Tender, Non Distended and Normal Bowel Sounds
Rectal: Deferred by Provider
Skin: Warm and Dry
Neuro: AO x 3, No Motor Deficits and CN X-XII Intact
Extremities: Pulses (+2/4 DP pulses B/L, no varicosities, no femoral bruit)
Lymph: No Lymphadenopathy
Psych: Calm
Assessment / Plan
-
69 year old male with know CAD and prior RCA stents was admitted 10/28/24 with mid epigastric pain. Ruled in for NSTEMI and found to have triple-vessel coronary disease and low normal EF (50-55%)
- Surgeon to review imaging and discuss risk/benefit with patient
- preop diagnostics ordered
- hold Diovan 2 days prior to surgery
Data Reviewed
-
EKG: Report Reviewed by me and Discussed with Physician
Human Resource Adviser: Report Reviewed by me and Discussed with Physician
Echo: Report Reviewed by me and Discussed with Physician
Radiology: Report Reviewed by me and Discussed with Physician
Labs: Labs Reviewed by me and Discussed with Physician
Old Records: Reviewed
[2024-10-28 16:43] LABS: Glucose - Point of Care 180 mg/dl (70-99)
[2024-10-28] MEDS: CRESTOR 20 MG PO (17:01)
[2024-10-28] MEDS: FLOMAX 0.4 MG PO (17:29)
[2024-10-28] MEDS: DILAUDID 0.5 MG IV (17:30)
[2024-10-28] MEDS: NOVOLOG FLEXPEN-LOW RESISTANCE 1 UNITS SC (18:30)
--- NOTE | 2024-10-28 19:30 | PTCARENOTE ---
Patient received awake and alert, sitting up at the edge of the bed, without apparent signs of distress or discomfort. He states that his chest discomfort is much better, 2/10, described as dull pressure. He refused hospital dinner provided and
states that his will bring him food later. Heparin gtt resumed at 950 units/hr. See staff forester charted on worklist flowsheet. BBS clear. S1S2 regular. Positive pulses, no edema. Right groin site soft, gauze and tegaderm dressing CDI. He is
on 2L/nc. SR with 1st degree AVB and BBB on CM. Orders and labs reviewed. Bed in low and locked position, call park within reach. Patient advised to call if he needs to use the bathroom, verbalized understanding.
--- NOTE | 2024-10-28 21:30 | PTCARENOTE ---
Patient c/o nausea. He is unable to eat the food his brought him. It is too soon to administer Zofran. Opal Pacheco APN contacted for new orders. Order received for Compazine, given. Patient also requesting Dilaudid which was given for
ongoing chest discomfort.
[2024-10-28 21:53] LABS: Glucose - Point of Care 191 mg/dl (70-99)
[2024-10-28] MEDS: COMPAZINE 5 MG IV (22:01)
[2024-10-28] MEDS: DILAUDID 0.25 MG IV (22:01)
[2024-10-29] VITALS (18 sets, daily range): BP systolic 95–122; BP diastolic 50–70; BMI 23.3
--- NOTE | 2024-10-29 00:10 | PTCARENOTE ---
Addendum entered by Alka Boles RN 10/29/24 00:47:
No other change in patient's physical assessment.
Original Note:
Patient is extremely anxious. He states, 'I just don't feel good.' He is awake, unable to sleep. HR 110s, RR 30s. Notified Arelis Pacheco APN and requested Xanax. Order received, Xanax given. Emotional support and encouragement given to patient. PTT
drawn.
[2024-10-29] MEDS: XANAX 0.25 MG PO (00:23)
[2024-10-29 01:00] LABS: APTT 56.7 Sec (23.4-35.0)
--- NOTE | 2024-10-29 01:35 | PTCARENOTE ---
Patient appears to be sleeping comfortably with eyes closed, lying still, resps nonlabored. PTT noted 56.7; Heparin gtt increased 200 units/hr to 1150 units/hr.
[2024-10-29 03:35] LABS: Hematocrit 31.5 % (39.0-52.0); Hemoglobin 10.8 g/dL (13.0-18.0); Mean Corp Hgb Conc. 34.3 g/dL (33.0-37.0); Mean Corpuscular Volume 86.8 fL (80.0-94.0); Nucleated Red Blood Cells % 0 % (-); Platelet Count 202 10^3/uL (130-400); Red Cell Dist. Width 13.2 % (11.5-14.5)
[2024-10-29 03:53] LABS: Blood Urea Nitrogen 16 mg/dl (9-20); Calcium 8.8 mg/dl (8.4-10.2); Carbon Dioxide 22 mmol/L (22-30); Chloride 104 mmol/L (98-107); Estimated Creatinine Clearance 74 ml/min; Glucose 157 mg/dl (70-99); Potassium 3.9 mmol/L (3.5-5.1); Sodium 132 mmol/L (135-145); eGFR > 60.00
--- NOTE | 2024-10-29 04:30 | PTCARENOTE ---
Patient appears fatigued. Up frequently t/o night to void in small amounts. Patient states that this is his norm. Dozing intermittently. Am Labs were drawn. Bilateral bases diminished with fine crackles. Occasional dry cough noted. Tachy in the 110s
with activity with mild ESPINOZA noted. Occasionally tachypneic. Sats 94% on 2L/nc. Rest of physical assessment is unchanged. BP stable. Right groin soft and dressing CDI, pulses palpable, neurovascularly intact RLE.
--- NOTE | 2024-10-29 07:09 | PTCARENOTE ---
Report given verbally to oncoming vanessa, Junie DAVIS. Bedside rounds done. Questions answered.
[2024-10-29 07:53] LABS: Magnesium 1.7 mg/dl (1.6-2.3)
[2024-10-29] MEDS: TYLENOL 650 MG PO ×2 (07:53→19:41)
[2024-10-29] MEDS: ASPIR LOW (ENTERIC COATED) 81 MG PO (07:54)
[2024-10-29] MEDS: PROTONIX IV 40 MG IV (07:55)
--- NOTE | 2024-10-29 07:55 | PTCARENOTE ---
Assumed care of pt at 0715 following shift report. Pt awake and resting quietly in bed. Reports 3/10 chest discomfort, describes as 'bit of an ache' and gestures to sternum. Pt reports chest discomfort consistent w/ discomfort he has been
experiencing. No acute distress. Skin W/D. Denies SOB. Pt requesting 'some of that Dilaudid'. Pt refusing offered Nitrostat stating 'it's not my heart'. Discussed ordered pain management w/ pt and pt agreeable to taking Tylenol- given as documented
in JUN. Ordered PTT drawn and sent to lab. Supervision provided to pt when ambulating to and from BR to void and have BM. Tolerated increased activity w/o noted complication or offered complaint. Gait steady. Pt sitting up in bedside chair. Call
vivian w/in pt reach and safe environment maintained.
[2024-10-29] MEDS: NSS (PRESERVATIVE FREE) 10 ML IV (07:56)
[2024-10-29 07:57] LABS: Glucose - Point of Care 161 mg/dl (70-99)
[2024-10-29] MEDS: NOVOLOG FLEXPEN-LOW RESISTANCE 1 UNITS SC ×3 (07:57→17:33)
[2024-10-29 08:09] LABS: APTT 88.6 Sec (23.4-35.0)
--- NOTE | 2024-10-29 08:11 | W.PN.CARDCBS ---
Today's Communication / Plan
-
CT surgery evaluating
Resume beta marianela next 24 hrs
Impression / Plan
-
PCP: Unknown
Compounding Assistant: None locally, follows w/ cardiology in [facility]
Impression:
Presented with epigastric chest pain
NSTEMI, peak trop 6.5
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
s/p prox RCA PCI 03/29/2019
DM2
HLD
HTN
GERD
Echo 10/28/2024: EF 50-55% by Alonso's method of discs. Basal to mid inferior and inferolateral wall mild hypokinesis. Mitral annular calcification. Mild to moderate mitral regurgitation.
Mild tricuspid regurgitation. Estimated pulmonary artery pressure of 25 mmHg
Cath October 28 2024:
LEFT MAIN: Tubular 40% stenosis with additional distal tapering. There is no pressure dampening with engagement of a 6 [place] diagnostic catheter
LEFT ANTERIOR DESCENDING: The LAD arises normally from the left main and is calcified in its proximal to midportion. The proximal LAD has a 50% stenosis with diffuse moderate atherosclerotic disease into the mid LAD where a long 60% stenosis is
noted in the mid LAD. The distal LAD wraps completely around the apex. The first diagonal branch is a moderate caliber vessel with a proximal 60% and focal 70% stenosis in its midportion
CIRCUMFLEX: The circumflex has an acute origin from the left main and is heavily calcified with a 95% ostial stenosis. OM1 is a moderate caliber vessel arising from the mid circumflex and has a 70% narrowing at its origin. OM 2 also has a 50%
ostial stenosis and is a smaller caliber vessel.
RIGHT CORONARY ARTERY: There are overlapping stents from the proximal to mid RCA which are 100% occluded. The distal vessel is noted to fill via hlmv-fm-spfuv collaterals. The distal right coronary artery fills via nhow-ml-pehsy collaterals.
VENTRICULOGRAPHY: Left ventriculography is performed in an RAMIRES projection. The digital single-plane left ventricular ejection fraction is visually estimated at 45-50%. There is +2 mitral regurgitation
CONCLUSIONS
1. Multivessel coronary artery disease with chronic total occlusion of the proximal to mid RCA throughout the entire stented segment. The distal vessel is noted to fill via bdtf-gr-iwwwt collaterals. There is a heavily calcified high-grade ostial
stenosis as the circumflex arises at an acute angle from the left main. The LAD is calcified with diffuse luminal irregularities and focal 60-70% mid stenosis. Branch vessel disease is noted at the origin of the diagonal branch, OM1, OM 2.
2. Low normal to mildly reduced LVEF estimated at 45-50% with basal inferolateral hypokinesis
RECOMMENDATIONS
1. The patient is diabetic with low normal to mildly reduced LVEF and multivessel coronary artery disease. He should be seen and evaluated by CT surgery for consideration of bypass.
Plan:
-Presented with epigastric chest pain concerning for angina. Admitted with NSTEMI. Initial troponin 6.59, trending down thereafter. Cath with multivessel CAD
Reviewed cath with pt. CT surgery evaluating
Echo with preserved EF with wall motion abnormality
Beta marianela (was on Bisoprolol) and Diovan held for hypotension. Consider resuming beta marianela with parameters, consider Toprol XL 12.5 mg daily next 24 hrs.
Cont ASA 81 mg daily.
LDL 51, cont Crestor
Cont DM management as per primary service. Hgb A1c 6.5%.
HPI: Owen is a 69 year old male with PMH of CAD w/ prior overlapping stents of the proximal RCA in 2019, DM2, HLD, HTN, and GERD. Presented to [facility] ER for evaluation of epigastric chest discomfort. Pain started a few days ago and he describes it as
a feeling of fullness or needing to belch, but being unable to. Denies any SOB or diaphoresis. Pain centrally located, but does radiate into jaw and L arm at times. Due to persistent pain, he came to ER for evaluation. On arrival, pain continued at
a 5/10 in severity. Labwork revealed elevated troponin of 6.59. EKG with RBBB and significant ST depressions. He was started on IV heparin and given SL nitro and morphine. Pain improved this AM. Repeat troponin trending down, however given h/o CAD
w/ recurrent symptoms concerning for angina, cardiology consulted.
Progress Note - Compounding Assistant
Subjective
Date of Service: October 29, 2024
Pt seen and examined. No complaints. No chest pain or shortness of breath.
Objective
Labs:
10/29/24 03:21
10/29/24 03:21
Labs
Hgb 10.8 g/dL (13.0-18.0) L 10/29/24 03:21
Hct 31.5 % (39.0-52.0) L 10/29/24 03:21
Plt Count 202 10^3/uL (130-400) 10/29/24 03:21
PT 14.0 Sec (11.4-14.6) 10/28/24 01:59
INR 1.03 10/28/24 01:59
APTT 88.6 Sec (23.4-35.0) H 10/29/24 07:44
Sodium 132 mmol/L (135-145) L 10/29/24 03:21
Potassium 3.9 mmol/L (3.5-5.1) 10/29/24 03:21
BUN 16 mg/dl (9-20) 10/29/24 03:21
Creatinine 0.8 mg/dL (0.7-1.3) 10/29/24 03:21
Glucose 157 mg/dl (70-99) H 10/29/24 03:21
Troponins
10/28/24 10/28/24 10/28/24
01:56 06:38 12:19
Troponin I 6.590 H* 5.900 H* Cancelled
10/28/24 10/28/24 10/28/24
13:42 13:42 18:19
Troponin I 3.880 H* D Cancelled Cancelled
Vital Signs and I&O:
Vital Signs
Temp Pulse Resp BP Pulse Ox
99.1 F 102 31 99/58 92
10/28/24 23:36 10/29/24 07:05 10/29/24 07:05 10/29/24 07:05 10/29/24 07:05
Vital Signs
Temp Pulse Resp BP Pulse Ox
99.1 F 102 31 99/58 92
10/28/24 23:36 10/29/24 07:05 10/29/24 07:05 10/29/24 07:05 10/29/24 07:05
Intake & Output
10/27/24 10/28/24 10/29/24 10/30/24
06:59 06:59 06:59 06:59
Intake Total 404.75 / 404.75
Output Total 1050 / 1050
Balance -645.25 / -645.25
Physical Exam
Physical Exam
General: No acute distress, AAOX3
Neck: Negative JVD
Heart: Regular, Negative S3 positive S1/S2, Negative S4, No murmur
Lungs: CTA b/l, negative wheezes/rales/rhonchi
Abd: Positive BS, NT/ND, neg rebound/rigidity/guarding
Ext: Negative cyanosis/clubbing/edema
Neuro: nonfocal
[2024-10-29] MEDS: FLOMAX PO (08:52)
[2024-10-29] MEDS: MAGNESIUM OXIDE 500 MG PO (08:56)
[2024-10-29] MEDS: SINGULAIR 10 MG PO (08:56)
--- NOTE | 2024-10-29 10:12 | W.PN.HOSP.TC ---
Today's Communication/Plan
-
Resume BB when able
Heparin
CTS eval
Assessment / Plan
Assessment / Plan
69-year-old admitted with a non-STEMI
CT Chest- Small bilateral pleural effusions with associated compressive atelectasis and/or pneumonia, right greater than left. Patchy consolidation within the posterior aspects of the bilateral upper lobes, right greater than left and suspicious for
pneumonia.Severe coronary artery calcifications.
Echo 10/28/2024-normal LV size. EF 50 to 55% basal to mid inferior and inferolateral wall mild hypokinesis. Stage I diastolic dysfunction with abnormal relaxation. Mitral sclerosis without stenosis. Thickened mitral valve leaflets. Mitral
annular calcification. Mild to moderate MR. Mild TR. PA pressure 25 mmHg
CVS: S1-S2 normal, Sm at apex
Chest: CTA B/L
Abdomen: Soft, NT / Bowel sounds present
Extremities: No edema
# ACS/non-STEMI
Troponin trending down
History of coronary disease with RCA stent
Cardiac [id number] CAD with total occlusion of the proximal to mid RCA throughout the entire stented segment. Heavily calcified high-grade ostial stenosis circumflex. LAD is calcified with diffuse luminal irregularities and focal 60 to
70% mid stenosis. EF 45 to 50% with basal inferior lateral hypokinesis.
CT surgery consulted
Carotid ultrasound pending
# Diabetes-hemoglobin A1c-6.5
Hold metformin
Continue Accu-Cheks and sliding scale coverage
# Anemia -check iron studies
# Hyponatremia-Follow
# Hypertension-Home regimen consist of bisoprolol, valsartan-both on hold for hypotension
# Hyperlipidemia-continue statin
# MASLD-Repeat LFTS added on
# Enlarged prostate-continue silodosin or equivalent
# GERD-PPI
# Full code
D/W Brother at bed side
Part of this note was created using voice recognition system. Occasional wrong word or��sound alike� substitutions may have inadvertently occurred due to the inherent limitations of voice recognition software. If noted kindly bring it to my
attention for correction.
Anticipated Discharge: > 48 hours
Subjective/Interval History
-
Date of Service: October 29, 2024
Objective Data
-
Labs:
Laboratory Results
10/29/24 10/29/24 10/29/24
00:33 03:21 07:44
WBC 11.9 H
Hgb 10.8 L
Hct 31.5 L
Plt Count 202
APTT 56.7 H 88.6 H
Sodium 132 L
Potassium 3.9
Chloride 104
Carbon Dioxide 22
BUN 16
Creatinine 0.8
Glucose 157 H
Calcium 8.8
10/29/24
13:30
WBC
Hgb
Hct
Plt Count
APTT Pending
Sodium
Potassium
Chloride
Carbon Dioxide
BUN
Creatinine
Glucose
Calcium
Vital Signs:
Vital Signs
Temp Pulse Resp BP Pulse Ox
99.1 F 102 31 99/58 92
10/28/24 23:36 10/29/24 07:05 10/29/24 07:05 10/29/24 07:05 10/29/24 07:05
I&O
10/28/24 10/29/24 10/30/24
06:59 06:59 06:59
Intake Total 404.75 / 404.75
Output Total 1050 / 1050
Balance -645.25 / -645.25
--- NOTE | 2024-10-29 12:00 | PTCARENOTE ---
Pt continues to sit OOB in chair, visiting w/ family members. No further c/o discomfort. Remains on O2 @ 2l/ min w/ POx 94-98%. No SOB noted. 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 No additional changes from previous
assessment findings;.
[2024-10-29 13:13] LABS: Glucose - Point of Care 199 mg/dl (70-99)
[2024-10-29 14:05] LABS: ALT (SGPT) 31 U/L (0-50); AST (SGOT) 119 U/L (17-59); Albumin 3.7 g/dl (3.5-5.0); Alkaline Phosphatase 41 U/L (38-126); Iron 38 ug/dl (49-181); Total Protein 6.2 g/dl (6.3-8.2)
[2024-10-29 14:15] LABS: Total Iron Binding Capacity 345 ug/dl (261-462)
[2024-10-29 14:40] LABS: Ferritin 34.2 ng/ml (17.9-464.0)
[2024-10-29 14:55] LABS: Vitamin B12 < 159 pg/ml (239-931)
[2024-10-29 15:08] LABS: APTT 59.2 Sec (23.4-35.0)
--- NOTE | 2024-10-29 16:20 | PTCARENOTE ---
Pt's son here to visit. Pt resting quietly in bed. No further c/o chest discomfort. Pt reports feeling 'like I'm getting a temperature' and requesting his oral temp be rechecked- Temp= 99.8F. No additional changes from previous assessment findings.
Pt to transfer to Rm [id number] via w/ personal belongings. Report given to 'Chantell' RYAN. Pt's son present at time of transfer.
[2024-10-29 17:09] LABS: Glucose - Point of Care 160 mg/dl (70-99)
[2024-10-29] MEDS: CRESTOR 20 MG PO (17:30)
[2024-10-29] MEDS: DILAUDID 0.25 MG IV (18:04)
[2024-10-29] MEDS: HEPARIN 25000 UNITS/250 ML IV (18:10)
--- NOTE | 2024-10-29 18:24 | PTCARENOTE ---
Pt received as a transfer from ICU. Pt assisted to the chair, gait steady. Heparin infusing as ordered. SR - ST, rate in the 80's. C/o of 7/10 epigastric pressure, requesting the Dilaudid. Medicated with the Dilaudid as ordered. Pt resting quietly
in bed.
[2024-10-29 18:25] LABS: Hepatitis C Antibody Negative (Negative)
[2024-10-29] MEDS: FLOMAX 0.4 MG PO (19:42)
--- NOTE | 2024-10-29 21:31 | PTCARENOTE ---
Assumed care of the pt @ 1900. Pt is AAOx3 sitting up in chair with in the room. HR 115-120 Temp 102 oral BP stable 92% Pox on RA. Pt was placed on 2LPM O2 and 650 mg Tylenol given. Ashutosh HORNER notified of HR and temp. Blood and urine
cultures ordered. Heparin gtt infusing @ 1350 units/HR denies cp.
[2024-10-29 21:39] LABS: APTT 100.0 Sec (23.4-35.0)
[2024-10-29 21:53] LABS: Glucose - Point of Care 204 mg/dl (70-99)
[2024-10-29 21:58] LABS: Urine Character Clear (Clear)
[2024-10-29 22:07] LABS: Urine Squamous Cell 0-2 /LPF (Few)
[2024-10-30] VITALS (7 sets, daily range): BP systolic 107–167; BP diastolic 59–96; BMI 23.5
[2024-10-30] MEDS: TYLENOL 650 MG PO ×2 (03:17→10:59)
--- NOTE | 2024-10-30 03:36 | PTCARENOTE ---
Routine rounding walked in on pt in bed just finished ambulating to bathroom. HR ST 134 +ESPINOZA. VS done Temp 101.8 F BP 167/85 Sat 93 % on 2LPM NC. Pt was given Tylenol and encouraged to use urinal instead of walking to bathroom. Lungs decreased with
crackles. Morning labs drawn and sent. Pt admits to breathing better after a few minutes. Pt was instructed to only use 1 blanket while having a fever but pt continues to use several blankets and a hoodie jacket over gown.
[2024-10-30 03:45] LABS: Hematocrit 32.0 % (39.0-52.0); Hemoglobin 10.9 g/dL (13.0-18.0); Mean Corp Hgb Conc. 34.1 g/dL (33.0-37.0); Mean Corpuscular Volume 86.5 fL (80.0-94.0); Platelet Count 199 10^3/uL (130-400); Red Cell Dist. Width 13.4 % (11.5-14.5)
[2024-10-30 04:01] LABS: APTT 131.7 Sec (23.4-35.0)
[2024-10-30 04:09] LABS: ALT (SGPT) 30 U/L (0-50); AST (SGOT) 71 U/L (17-59); Albumin 3.7 g/dl (3.5-5.0); Alkaline Phosphatase 39 U/L (38-126); Blood Urea Nitrogen 19 mg/dl (9-20); Calcium 8.8 mg/dl (8.4-10.2); Carbon Dioxide 23 mmol/L (22-30); Chloride 103 mmol/L (98-107); Estimated Creatinine Clearance 59 ml/min; Glucose 155 mg/dl (70-99); Potassium 3.8 mmol/L (3.5-5.1); Sodium 132 mmol/L (135-145); Total Protein 6.5 g/dl (6.3-8.2); eGFR > 60.00
--- NOTE | 2024-10-30 06:49 | W.PN.UPDATE ---
Update Note
Progress Note Update
PT febrile overnight. BC x2, UA c+s, 2 view cx[address] this am[address] chest previous suspicious for PNA vs compressive atelectasis. IS encouraged for now til CXF done this am. Has allergy to PCN.
[2024-10-30 08:44] LABS: Glucose - Point of Care 152 mg/dl (70-99)
--- NOTE | 2024-10-30 08:53 | W.PN.HOSP.TC ---
Today's Communication/Plan
-
CXR
Levaquin
CTS eval ongoing
Assessment / Plan
Assessment / Plan
69-year-old admitted with a non-STEMI
CT Chest- Small bilateral pleural effusions with associated compressive atelectasis and/or pneumonia, right greater than left. Patchy consolidation within the posterior aspects of the bilateral upper lobes, right greater than left and suspicious for
pneumonia.Severe coronary artery calcifications.
Echo 10/28/2024-normal LV size. EF 50 to 55% basal to mid inferior and inferolateral wall mild hypokinesis. Stage I diastolic dysfunction with abnormal relaxation. Mitral sclerosis without stenosis. Thickened mitral valve leaflets. Mitral
annular calcification. Mild to moderate MR. Mild TR. PA pressure 25 mmHg
CVS: S1-S2 normal, Sm at apex
Chest: CTA B/L
Abdomen: Soft, NT / Bowel sounds present
Extremities: No edema
# Fever- Mildly abnormal UA and also has a cough. ? Pneumonia. Check COVID also
Blood and urine Cx pending.
CXR pending.
Add Levaquin( Allergy to PCN)
# ACS/non-STEMI
Troponin trending down
History of coronary disease with RCA stent
Cardiac [id number] CAD with total occlusion of the proximal to mid RCA throughout the entire stented segment. Heavily calcified high-grade ostial stenosis circumflex. LAD is calcified with diffuse luminal irregularities and focal 60 to
70% mid stenosis. EF 45 to 50% with basal inferior lateral hypokinesis.
CT surgery consulted, final plans pending
Carotid ultrasound pending
# Diabetes-hemoglobin A1c-6.5
Hold metformin
Continue Accu-Cheks and sliding scale coverage
# Anemia -Due to iron and B 12 Def. Replace both.
# Hyponatremia-Follow
# Hypertension-Home regimen consist of bisoprolol, valsartan-both on hold for hypotension
# Hyperlipidemia-continue statin
# MASLD-Repeat LFTS improving.
# Enlarged prostate-continue silodosin or equivalent
# GERD-PPI
# Full code
D/W at bed side
D/W RN at bed side
Part of this note was created using voice recognition system. Occasional wrong word or��sound alike� substitutions may have inadvertently occurred due to the inherent limitations of voice recognition software. If noted kindly bring it to my
attention for correction.
Anticipated Discharge: > 48 hours
Subjective/Interval History
-
Date of Service: October 30, 2024
Objective Data
-
Labs:
Laboratory Results
10/29/24 10/30/24 10/30/24
21:14 03:31 12:30
WBC 10.4
Hgb 10.9 L
Hct 32.0 L
Plt Count 199
APTT 100.0 H 131.7 H Pending
Sodium 132 L
Potassium 3.8
Chloride 103
Carbon Dioxide 23
BUN 19
Creatinine 1.0
Glucose 155 H
Calcium 8.8
Total Bilirubin 1.3
AST 71 H
ALT 30
Alkaline Phosphatase 39
Vital Signs:
Vital Signs
Temp Pulse Resp BP Pulse Ox
98.3 F 103 20 107/59 94
10/30/24 08:14 10/30/24 08:14 10/30/24 08:14 10/30/24 08:14 10/30/24 08:14
I&O
10/29/24 10/30/24 10/31/24
06:59 06:59 06:59
Intake Total 404.75 / 416.25 309.0 / 309.0
Output Total 1050 / 1050 200 / 200
Balance -645.25 / -633.75 109.0 / 109.0
[2024-10-30] MEDS: NOVOLOG FLEXPEN-LOW RESISTANCE 1 UNITS SC ×3 (09:15→21:10)
[2024-10-30] MEDS: ASPIR LOW (ENTERIC COATED) 81 MG PO (09:16)
[2024-10-30] MEDS: PROTONIX IV 40 MG IV (09:16)
[2024-10-30] MEDS: NSS (PRESERVATIVE FREE) 10 ML IV (09:16)
[2024-10-30] MEDS: MAGNESIUM OXIDE 500 MG PO (09:16)
[2024-10-30] MEDS: SINGULAIR 10 MG PO (09:16)
[2024-10-30] MEDS: LEVAQUIN 750 MG PO (09:17)
--- NOTE | 2024-10-30 09:41 | PTCARENOTE ---
Pt is AOx3, no complaints of pain or discomfort. Standby assist OOB. Heparin gtt infusing per protocol. Blood sugars monitored. Sinus tach w/BBB on tele, VSS, no temp this AM. at bedside. Call park within reach.
--- NOTE | 2024-10-30 10:39 | W.PN.CARDCBS ---
Today's Communication / Plan
-
Reviewed cath with pt. CT surgery evaluating, further input pending.
Echo with preserved EF with wall motion abnormality
Fever noted and primary service started empiric Levaquin.
BC and UC and COVID pending
Beta marianela (was on Bisoprolol) and Diovan held for hypotension.
Consider resuming beta marianela with parameters, consider Toprol XL 12.5 mg daily next 24 hrs.
Some of his tachycardia could be related to infection as well.
Cont ASA 81 mg daily.
LDL 51, cont Crestor
Impression / Plan
-
PCP: Unknown
Nurse Executive: None locally, follows w/ cardiology in [facility]
Impression:
Presented with epigastric chest pain
NSTEMI, peak trop 6.5
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
s/p prox RCA PCI 03/29/2019
Febrile, possible PNA
DM2
HLD
HTN
GERD
Echo 10/28/2024: EF 50-55% by Alonso's method of discs. Basal to mid inferior and inferolateral wall mild hypokinesis. Mitral annular calcification. Mild to moderate mitral regurgitation.
Mild tricuspid regurgitation. Estimated pulmonary artery pressure of 25 mmHg
Cath October 28 2024:
LEFT MAIN: Tubular 40% stenosis with additional distal tapering. There is no pressure dampening with engagement of a 6 [place] diagnostic catheter
LEFT ANTERIOR DESCENDING: The LAD arises normally from the left main and is calcified in its proximal to midportion. The proximal LAD has a 50% stenosis with diffuse moderate atherosclerotic disease into the mid LAD where a long 60% stenosis is
noted in the mid LAD. The distal LAD wraps completely around the apex. The first diagonal branch is a moderate caliber vessel with a proximal 60% and focal 70% stenosis in its midportion
CIRCUMFLEX: The circumflex has an acute origin from the left main and is heavily calcified with a 95% ostial stenosis. OM1 is a moderate caliber vessel arising from the mid circumflex and has a 70% narrowing at its origin. OM 2 also has a 50%
ostial stenosis and is a smaller caliber vessel.
RIGHT CORONARY ARTERY: There are overlapping stents from the proximal to mid RCA which are 100% occluded. The distal vessel is noted to fill via ohsg-tm-pzpex collaterals. The distal right coronary artery fills via inhl-qt-iqose collaterals.
VENTRICULOGRAPHY: Left ventriculography is performed in an RAMIRES projection. The digital single-plane left ventricular ejection fraction is visually estimated at 45-50%. There is +2 mitral regurgitation
CONCLUSIONS
1. Multivessel coronary artery disease with chronic total occlusion of the proximal to mid RCA throughout the entire stented segment. The distal vessel is noted to fill via ojnh-ve-vpgpc collaterals. There is a heavily calcified high-grade ostial
stenosis as the circumflex arises at an acute angle from the left main. The LAD is calcified with diffuse luminal irregularities and focal 60-70% mid stenosis. Branch vessel disease is noted at the origin of the diagonal branch, OM1, OM 2.
2. Low normal to mildly reduced LVEF estimated at 45-50% with basal inferolateral hypokinesis
RECOMMENDATIONS
1. The patient is diabetic with low normal to mildly reduced LVEF and multivessel coronary artery disease. He should be seen and evaluated by CT surgery for consideration of bypass.
Plan:
-Presented with epigastric chest pain concerning for angina. Admitted with NSTEMI. Initial troponin 6.59, trending down thereafter. Cath with multivessel CAD
Reviewed cath with pt. CT surgery evaluating, further input pending.
Echo with preserved EF with wall motion abnormality
Fever noted and primary service started empiric Levaquin.
BC and UC and COVID pending
Beta marianela (was on Bisoprolol) and Diovan held for hypotension.
Consider resuming beta marianela with parameters, consider Toprol XL 12.5 mg daily next 24 hrs.
Some of his tachycardia could be related to infection as well.
Cont ASA 81 mg daily.
LDL 51, cont Crestor
Cont DM management as per primary service. Hgb A1c 6.5%.
Discussed with at bedside
HPI: Owen is a 69 year old male with PMH of CAD w/ prior overlapping stents of the proximal RCA in 2019, DM2, HLD, HTN, and GERD. Presented to [facility] ER for evaluation of epigastric chest discomfort. Pain started a few days ago and he describes it as
a feeling of fullness or needing to belch, but being unable to. Denies any SOB or diaphoresis. Pain centrally located, but does radiate into jaw and L arm at times. Due to persistent pain, he came to ER for evaluation. On arrival, pain continued at
a 5/10 in severity. Labwork revealed elevated troponin of 6.59. EKG with RBBB and significant ST depressions. He was started on IV heparin and given SL nitro and morphine. Pain improved this AM. Repeat troponin trending down, however given h/o CAD
w/ recurrent symptoms concerning for angina, cardiology consulted.
Progress Note - Nurse Executive
Subjective
Date of Service: October 30, 2024
Pt seen and examined. No complaints. No chest pain or shortness of breath.
Objective
Labs:
10/30/24 03:31
10/30/24 03:31
Labs
Hgb 10.9 g/dL (13.0-18.0) L 10/30/24 03:31
Hct 32.0 % (39.0-52.0) L 10/30/24 03:31
Plt Count 199 10^3/uL (130-400) 10/30/24 03:31
PT 14.0 Sec (11.4-14.6) 10/28/24 01:59
INR 1.03 10/28/24 01:59
APTT 131.7 Sec (23.4-35.0) H 10/30/24 03:31
Sodium 132 mmol/L (135-145) L 10/30/24 03:31
Potassium 3.8 mmol/L (3.5-5.1) 10/30/24 03:31
BUN 19 mg/dl (9-20) 10/30/24 03:31
Creatinine 1.0 mg/dL (0.7-1.3) 10/30/24 03:31
Glucose 155 mg/dl (70-99) H 10/30/24 03:31
Troponins
10/28/24 10/28/24 10/28/24
01:56 06:38 12:19
Troponin I 6.590 H* 5.900 H* Cancelled
10/28/24 10/28/24 10/28/24
13:42 13:42 18:19
Troponin I 3.880 H* D Cancelled Cancelled
Vital Signs and I&O:
Vital Signs
Temp Pulse Resp BP Pulse Ox
98.3 F 103 20 107/59 94
10/30/24 08:14 10/30/24 08:14 10/30/24 08:14 10/30/24 08:14 10/30/24 08:14
Vital Signs
Temp Pulse Resp BP Pulse Ox
98.3 F 103 20 107/59 94
10/30/24 08:14 10/30/24 08:14 10/30/24 08:14 10/30/24 08:14 10/30/24 08:14
Intake & Output
10/28/24 10/29/24 10/30/24 10/31/24
06:59 06:59 06:59 06:59
Intake Total 404.75 / 416.25 309.0 / 309.0
Output Total 1050 / 1050 200 / 200
Balance -645.25 / -633.75 109.0 / 109.0
Physical Exam
Physical Exam
General: No acute distress, AAOX3
Neck: Negative JVD
Heart: Regular, Negative S3 positive S1/S2, Negative S4, No murmur
Lungs: CTA b/l, negative wheezes/rales/rhonchi
Abd: Positive BS, NT/ND, neg rebound/rigidity/guarding
Ext: Negative cyanosis/clubbing/edema
Neuro: nonfocal
[2024-10-30] MEDS: MIRALAX 17 GRAMS PO (11:00)
[2024-10-30 11:25] LABS: COVID-19 Antigen Negative (Negative)
[2024-10-30 12:45] LABS: APTT 83.0 Sec (23.4-35.0)
[2024-10-30 12:58] LABS: Glucose - Point of Care 191 mg/dl (70-99)
[2024-10-30] MEDS: FEOSOL PO (13:18)
[2024-10-30] MEDS: NOVOLOG FLEXPEN 2 UNITS SC ×2 (13:18→21:11)
[2024-10-30] MEDS: CYANOCOBALAMIN IM (13:18)
[2024-10-30] MEDS: TOPROL XL 12.5 MG PO (15:58)
[2024-10-30] MEDS: HEPARIN 25000 UNITS/250 ML IV (16:54)
[2024-10-30] MEDS: CRESTOR 20 MG PO (17:27)
[2024-10-30 19:09] LABS: APTT 76.4 Sec (23.4-35.0)
[2024-10-30] MEDS: FEOSOL 325 MG PO (21:04)
[2024-10-30] MEDS: FLOMAX 0.4 MG PO (21:04)
[2024-10-30 21:15] LABS: Glucose - Point of Care 163 mg/dl (70-99)
[2024-10-30] MEDS: DILAUDID 0.25 MG IV (21:22)
--- NOTE | 2024-10-30 22:06 | PTCARENOTE ---
Assumed care of the pt @ 1900. Pt is AAOx3 SR/ST on the monitor.VSS Hep gtt infusing @ 1150 units/HR .Pt requested Dilaudid for abd/chest discomfort. Lungs decreased but clear on 2 LPM NC Sats 92%. Call park within reach.
[2024-10-31 04:47] VITALS: BP 117/65
[2024-10-31 05:42] LABS: Hematocrit 25.8 % (39.0-52.0); Hemoglobin 8.9 g/dL (13.0-18.0); Mean Corp Hgb Conc. 34.5 g/dL (33.0-37.0); Mean Corpuscular Volume 86.0 fL (80.0-94.0); Platelet Count 197 10^3/uL (130-400); Red Cell Dist. Width 13.4 % (11.5-14.5)
[2024-10-31 05:48] LABS: APTT 83.8 Sec (23.4-35.0)
[2024-10-31 05:51] LABS: Blood Urea Nitrogen 17 mg/dl (9-20); Calcium 8.1 mg/dl (8.4-10.2); Carbon Dioxide 24 mmol/L (22-30); Chloride 103 mmol/L (98-107); Estimated Creatinine Clearance 66 ml/min; Glucose 125 mg/dl (70-99); Potassium 3.9 mmol/L (3.5-5.1); Sodium 132 mmol/L (135-145); eGFR > 60.00
[2024-10-31 07:58] VITALS: BP 121/68
--- NOTE | 2024-10-31 08:00 | PTCARENOTE ---
Assumed car3e of pt from prev nsg shift; Pt AAOx3 w/no c/o CP. Pt reports feeling 'a little SOB this AM'. Pt VSS w/HR in the 110's & BP 121/68. Pt is ST on telemetry monitoring. Pt asking to wait to take PO meds until after he eats breakfast this
AM. Pt assisted w/ordering breakfast. Pt w/call park within reach & plan ongoing.
[2024-10-31 08:05] LABS: ALT (SGPT) 22 U/L (0-50); AST (SGOT) 35 U/L (17-59); Albumin 3.3 g/dl (3.5-5.0); Alkaline Phosphatase 41 U/L (38-126); Total Protein 5.7 g/dl (6.3-8.2)
--- NOTE | 2024-10-31 08:47 | W.PN.CARDCBS ---
Addendum entered and electronically signed by Jesus Brown DO 10/31/24 11:57:
I saw and examined the patient.
The Freight Car Builder's note was reviewed and I agree with the note.
Comment:
Plan:
Cont ASA and IV Heparin for multivessel CAD
No further chest pain
CT surgery evaluating with tentative plan for CABG November 03.
Lasix X 1 by primary service for wt gain and dyspnea as may be multifactorial
Increase Toprol for better HR control.
Cont abx for PNA as per primary service.
Discussed with primary service.
Original Note:
Today's Communication / Plan
-
Continue aspirin, heparin. Follow Hgb.
CT surgery evaluation ongoing. No further CP.
Tentative plan for OR
Continue abx per primary service.
Impression / Plan
-
PCP: Unknown
Manager Ecommerce: None locally, follows w/ cardiology in [facility]
Impression:
Presented with epigastric chest pain
NSTEMI, peak trop 6.5
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
s/p prox RCA PCI 03/29/2019
Suspected pneumonia
DM2
HLD
HTN
GERD
Echo 10/28/2024: EF 50-55%, stage I diastolic dysfunction, basal to mid inferior and inferolateral wall mild hypokinesis, MAC, mild to mod MR, mild TR, estimated PAP 25 mmHg
LHC 10/28/2024: LM: Tubular 40% stenosis with additional distal tapering. LAD: Proximal LAD has a 50% stenosis with diffuse moderate atherosclerotic disease into the mid LAD where a long 60% stenosis is noted. First diagonal branch has a proximal 60%
stenosis with focal 70% stenosis in midportion. LCx: Heavily calcified with a 95% ostial stenosis. OM1 has a 70% narrowing at its origin. OM2 also has a 50% ostial stenosis. RCA: Overlapping stents from proximal to mid RCA are 100% occluded. Distal
vessel is noted to fill via left to right collaterals. 2+ MR.
Plan:
-Presented with epigastric chest pain concerning for angina. Admitted with NSTEMI. Initial troponin 6.59, trending down thereafter. Cath with multivessel CAD.
-CT surgery evaluation ongoing. Tentative plan is for OR on , 11/03.
-Echo 10/28 with preserved EF and mild to moderate MR as noted above.
-Continue IV heparin, aspirin. Hgb 8.9, continue to follow.
-Fever noted over the weekend with TMax 102F. Now on abx per primary service w/ concern for pneumonia on CXR. Blood cultures negative thus far. Urine culture negative.
-Covid negative.
-BP stable. HRs somewhat elevated, sinus tachycardia on tele. Started on Toprol 12.5mg daily 10/30. Continue to follow. Tachycardia likely at least in part related to suspected pneumonia.
-LDL 51. Continue Crestor 20mg daily.
-Hgb A1c 6.5%. Continue DM management per primary service.
HPI: Owen is a 69 year old male with PMH of CAD w/ prior overlapping stents of the proximal RCA in 2018, DM2, HLD, HTN, and GERD. Presented to [facility] ER for evaluation of epigastric chest discomfort. Pain started a few days ago and he describes it as
a feeling of fullness or needing to belch, but being unable to. Denies any SOB or diaphoresis. Pain centrally located, but does radiate into jaw and L arm at times. Due to persistent pain, he came to ER for evaluation. On arrival, pain continued at
a 5/10 in severity. Labwork revealed elevated troponin of 6.59. EKG with RBBB and significant ST depressions. He was started on IV heparin and given SL nitro and morphine. Pain improved this AM. Repeat troponin trending down, however given h/o CAD
w/ recurrent symptoms concerning for angina, cardiology consulted.
Progress Note - Manager Ecommerce
Subjective
Date of Service: October 31, 2024
Remains chest pain free.
Objective
Labs:
10/31/24 04:56
10/31/24 04:56
Labs
Hgb 8.9 g/dL (13.0-18.0) L 10/31/24 04:56
Hct 25.8 % (39.0-52.0) L 10/31/24 04:56
Plt Count 197 10^3/uL (130-400) 10/31/24 04:56
PT 14.0 Sec (11.4-14.6) 10/28/24 01:59
INR 1.03 10/28/24 01:59
APTT 83.8 Sec (23.4-35.0) H 10/31/24 04:56
Sodium 132 mmol/L (135-145) L 10/31/24 04:56
Potassium 3.9 mmol/L (3.5-5.1) 10/31/24 04:56
BUN 17 mg/dl (9-20) 10/31/24 04:56
Creatinine 0.9 mg/dL (0.7-1.3) 10/31/24 04:56
Glucose 125 mg/dl (70-99) H 10/31/24 04:56
Troponins
10/28/24 10/28/24 10/28/24
12:19 13:42 13:42
Troponin I Cancelled 3.880 H* D Cancelled
10/28/24
18:19
Troponin I Cancelled
Vital Signs and I&O:
Vital Signs
Temp Pulse Resp BP Pulse Ox
98.5 F 106 24 117/65 88
10/31/24 08:00 10/31/24 04:47 10/31/24 08:00 10/31/24 04:47 10/31/24 08:00
Vital Signs
Temp Pulse Resp BP Pulse Ox
98.5 F 106 24 117/65 88
10/31/24 08:00 10/31/24 04:47 10/31/24 08:00 10/31/24 04:47 10/31/24 08:00
Intake & Output
10/29/24 10/30/24 10/31/24 11/01/24
06:59 06:59 06:59 06:59
Intake Total 404.75 / 416.25 309.0 / 309.0
Output Total 1050 / 1050 200 / 200
Balance -645.25 / -633.75 109.0 / 109.0
Physical Exam
Physical Exam
GEN: No distress, awake, alert, oriented x3
HEENT: supple, anicteric, mmm
LUNGS: CTA b/l, no wheezes/rales
CV: Reg, S1/S2, 1/6 murmur
EXT: No clubbing, cyanosis, or edema
NEURO: Gross non-focal
SKIN: Warm, dry, no rash
[2024-10-31 08:56] LABS: Glucose - Point of Care 195 mg/dl (70-99)
[2024-10-31] MEDS: MILK OF MAGNESIA 30 ML PO (08:57)
[2024-10-31 09:00] VITALS: BMI 23.7
[2024-10-31] MEDS: MIRALAX 17 GRAMS PO (09:01)
[2024-10-31] MEDS: KCL 10 MEQ PO ×2 (09:02→18:31)
--- NOTE | 2024-10-31 09:44 | PN.CDI ---
Addendum entered and electronically signed by iMta Lin MD 10/31/24 11:12:
Documentation is complete at this time.
Original Note:
CDI
- -
CDI:
Physician Documentation Request
Admit Date: 10/28/24 04:05
Dear Doctor,
Please review the following and provide your response in the progress notes.
Clinical Indicators:
Pt. admitted with NSTEMI and possible Pneumonia.
10/28 CT Chest: Small bilateral pleural effusions with associated compressive atelectasis and/or pneumonia, right greater than left. Patchy consolidation within the posterior aspects of the bilateral upper lobes, right greater than left and
suspicious for pneumonia.
10/30 Progress Note: '# Fever- Mildly abnormal UA and also has a cough. ? Pneumonia. Check COVID also. Blood and urine Cx pending.
CXR pending.
Add Levaquin( Allergy to PCN)'
Selected Entries
10/28/24
03:30 10/28/24
06:00 10/28/24
11:15
Temp
Pulse 91
Resp Rate 36 26
10/28/24
12:00 10/28/24
15:30 10/29/24
19:47
Temp 102 F H
Pulse 103
Resp Rate 32
10/30/24
03:00 10/30/24
03:18 10/30/24
10:00
Temp 101.8 F H
Pulse 120 124
Laboratory Tests
10/28/24 10/29/24
01:56 03:21
WBC 12.0 H 11.9 H
Please clarify which of the following most accurately describes the status of the patient's infection:
Sepsis POA
- Systemic manifestations of infection, with 2 or more SIRS criteria which include:
- Fever >100.9 degrees F or hypothermia < 96.8 degrees F
- Leukocytosis - WBC > 12,000 or leukopenia - WBC < 4,000 or > 10% bands
- Tachycardia > 90 beats per minute
- Tachypnea - RR > 20 breaths per minute or PaCO2 , 32mmHg
Source: Merck Manual 2013
- Indicate the known or suspected organism
- Indicate the known or suspected underlying infection, such as UTI, pneumonia or cellulitis
Sepsis evolved during hospitalization
Pneumonia Only, Without Systemic Illness
Other
Use of terms such as suspected, likely, concern for, or probable (associated with a specific diagnosis that is being evaluated, monitored, or treated as if it exists) are acceptable and can be coded in the inpatient setting, when documented at the
time of discharge.
Thank you,
Esperanza Maddox RN, BSN
CDI Specialist
[place] [employer]
Please use your independent medical judgment in providing your response.
--- NOTE | 2024-10-31 09:49 | W.PN.HOSP.TC ---
Today's Communication/Plan
-
Continue Levaquin
1 dose of Lasix
Incentive spirometry
Bowel regimen
Assessment / Plan
Assessment / Plan
69-year-old admitted with a non-STEMI
CT Chest- Small bilateral pleural effusions with associated compressive atelectasis and/or pneumonia, right greater than left. Patchy consolidation within the posterior aspects of the bilateral upper lobes, right greater than left and suspicious for
pneumonia.Severe coronary artery calcifications.
Echo 10/28/2024-normal LV size. EF 50 to 55% basal to mid inferior and inferolateral wall mild hypokinesis. Stage I diastolic dysfunction with abnormal relaxation. Mitral sclerosis without stenosis. Thickened mitral valve leaflets. Mitral
annular calcification. Mild to moderate MR. Mild TR. PA pressure 25 mmHg
CVS: S1-S2 normal, Sm at apex
Chest: few rales
Abdomen: Soft, NT / Bowel sounds present
Extremities: No edema
# Fever- Mildly abnormal UA and also has a cough. Treat as Pneumonia NOS. COVID neg.
Blood and urine Cx neg
CXR fluid vs PNA
Continue Levaquin( Allergy to PCN)
Fevers better
Give a dose of lasix today as he is feeling SOB
# ACS/non-STEMI
Troponin trending down
History of coronary disease with RCA stent
Cardiac [id number] CAD with total occlusion of the proximal to mid RCA throughout the entire stented segment. Heavily calcified high-grade ostial stenosis circumflex. LAD is calcified with diffuse luminal irregularities and focal 60 to
70% mid stenosis. EF 45 to 50% with basal inferior lateral hypokinesis.
CT surgery consulted, final plans pending
Carotid ultrasound pending
# Depression-bowel regimen ordered
# Diabetes-hemoglobin A1c-6.5
Hold metformin
NovoLog AC
Continue Accu-Cheks and sliding scale coverage
# Anemia -Due to iron and B 12 Def. Replace both. Follow hemoglobin. 8.9 today
# Hyponatremia-Follow
# Hypertension-Home regimen consist of bisoprolol, valsartan-BB restarted 10/30/24
# Hyperlipidemia-continue statin
# MASLD-Repeat LFTS normalised.
# Enlarged prostate-continue silodosin or equivalent
# GERD-PPI
# DVT prophylaxis-heparin drip
# Full code
D/W RN at bed side
Part of this note was created using voice recognition system. Occasional wrong word or��sound alike� substitutions may have inadvertently occurred due to the inherent limitations of voice recognition software. If noted kindly bring it to my
attention for correction.
Anticipated Discharge: > 48 hours
Subjective/Interval History
-
Date of Service: October 31, 2024
Objective Data
-
Labs:
Laboratory Results
10/31/24
04:56
WBC 9.3
Hgb 8.9 L
Hct 25.8 L
Plt Count 197
APTT 83.8 H
Sodium 132 L
Potassium 3.9
Chloride 103
Carbon Dioxide 24
BUN 17
Creatinine 0.9
Glucose 125 H
Calcium 8.1 L
Total Bilirubin 0.8
AST 35
ALT 22
Alkaline Phosphatase 41
Vital Signs:
Vital Signs
Temp Pulse Resp BP Pulse Ox
98.5 F 99 24 121/68 88
10/31/24 08:00 10/31/24 09:00 10/31/24 08:00 10/31/24 07:58 10/31/24 08:00
I&O
10/30/24 10/31/24 11/01/24
06:59 06:59 06:59
Intake Total 309.0 / 309.0
Output Total 200 / 200
Balance 109.0 / 109.0
[2024-10-31] MEDS: NOVOLOG FLEXPEN 2 UNITS SC ×2 (10:33→19:31)
[2024-10-31] MEDS: NOVOLOG FLEXPEN-LOW RESISTANCE 1 UNITS SC ×2 (10:33→19:32)
--- NOTE | 2024-10-31 10:35 | CM ---
Reviewed chart. Met with Mr Morgan to review discharge plans. He states prior to admission he resides with his family in a two story home with one step to enter. He states he has a full flight of steps to get to bedroom/ full bathroom. He
states he has a powder room on the first floor. He states prior to admission he was independent with ambulation and adls. He states he does not have any DME in the home. He states he martinez not have a prescription plan. He states he maybe scheduled
for surgery the need of this week. Medical work-up in progress The discharge plan is to return home with his family when medically stable.
[2024-10-31] MEDS: PROTONIX IV 40 MG IV (10:55)
[2024-10-31] MEDS: CYANOCOBALAMIN IM ×2 (10:56→11:09)
[2024-10-31] MEDS: LASIX 20 MG IV (10:56)
[2024-10-31] MEDS: NSS (PRESERVATIVE FREE) 10 ML IV (10:56)
[2024-10-31] MEDS: SENOKOT 17.2 MG PO ×2 (10:57→20:14)
[2024-10-31] MEDS: FEOSOL 325 MG PO ×2 (10:57→20:14)
[2024-10-31] MEDS: MAGNESIUM OXIDE 500 MG PO (10:57)
[2024-10-31] MEDS: TOPROL XL 12.5 MG PO ×2 (10:57→15:14)
[2024-10-31] MEDS: FLUSH (NSS) 4 FLUSH IV (10:57)
[2024-10-31] MEDS: LEVAQUIN 750 MG PO (10:57)
[2024-10-31] MEDS: ASPIR LOW (ENTERIC COATED) 81 MG PO (10:57)
[2024-10-31] MEDS: SINGULAIR 10 MG PO (11:07)
[2024-10-31 11:20] VITALS: BP 117/65
[2024-10-31 15:12] VITALS: BP 93/61
[2024-10-31] MEDS: HEPARIN 25000 UNITS/250 ML IV (15:19)
[2024-10-31] MEDS: NOVOLOG FLEXPEN SC (15:24)
[2024-10-31] MEDS: NOVOLOG FLEXPEN-LOW RESISTANCE SC (15:25)
[2024-10-31 16:08] LABS: Magnesium 2.2 mg/dl (1.6-2.3)
[2024-10-31 18:00] LABS: Glucose - Point of Care 162 mg/dl (70-99)
[2024-10-31] MEDS: CRESTOR 20 MG PO (18:31)
[2024-10-31] MEDS: TYLENOL 650 MG PO (18:34)
[2024-10-31 19:43] VITALS: BP 111/72
[2024-10-31] MEDS: FLOMAX 0.4 MG PO (20:14)
[2024-10-31 21:24] LABS: Glucose - Point of Care 181 mg/dl (70-99)
[2024-10-31 22:27] VITALS: BP 111/66
[2024-10-31 22:31] LABS: Glucose - Point of Care 208 mg/dl (70-99)
[2024-11-01] VITALS (8 sets, daily range): BP systolic 106–124; BP diastolic 65–76; BMI 23.2
[2024-11-01 02:59] LABS: Hematocrit 28.9 % (39.0-52.0); Hemoglobin 10.1 g/dL (13.0-18.0); Mean Corp Hgb Conc. 34.9 g/dL (33.0-37.0); Mean Corpuscular Volume 85.3 fL (80.0-94.0); Platelet Count 224 10^3/uL (130-400); Red Cell Dist. Width 13.3 % (11.5-14.5)
[2024-11-01 03:10] LABS: APTT 78.5 Sec (23.4-35.0)
[2024-11-01 03:18] LABS: Blood Urea Nitrogen 19 mg/dl (9-20); Calcium 8.8 mg/dl (8.4-10.2); Carbon Dioxide 24 mmol/L (22-30); Chloride 103 mmol/L (98-107); Estimated Creatinine Clearance 66 ml/min; Glucose 154 mg/dl (70-99); Potassium 4.2 mmol/L (3.5-5.1); Sodium 133 mmol/L (135-145); eGFR > 60.00
--- NOTE | 2024-11-01 06:22 | PTCARENOTE ---
Pt ST with HR low 100s BPM. C/o ESPINOZA and stated that he'can't sleep and feels tired'. Pt independent in the room. Using oxygen as needed. Heparin gtt per order
[2024-11-01] MEDS: MAGNESIUM OXIDE 500 MG PO (07:39)
[2024-11-01] MEDS: LEVAQUIN 750 MG PO (07:39)
[2024-11-01] MEDS: ASPIR LOW (ENTERIC COATED) 81 MG PO (07:39)
[2024-11-01] MEDS: CYANOCOBALAMIN 1000 MCG IM (07:40)
[2024-11-01] MEDS: MIRALAX PO (07:41)
[2024-11-01] MEDS: FEOSOL 325 MG PO ×2 (07:43→19:39)
[2024-11-01] MEDS: TOPROL XL 25 MG PO ×2 (07:48→19:39)
[2024-11-01 08:20] LABS: Glucose - Point of Care 149 mg/dl (70-99)
[2024-11-01] MEDS: NOVOLOG FLEXPEN 2 UNITS SC ×3 (09:14→17:46)
[2024-11-01] MEDS: SENOKOT PO ×2 (09:15→19:38)
[2024-11-01] MEDS: NOVOLOG FLEXPEN-LOW RESISTANCE SC ×3 (09:15→17:45)
[2024-11-01] MEDS: LASIX 40 MG IV (09:20)
[2024-11-01] MEDS: SINGULAIR 10 MG PO (09:21)
--- NOTE | 2024-11-01 09:40 | W.PN.UPDATE ---
Update Note
Progress Note Update
STS RISK SCORE
Procedure Type:�Isolated CABG
Perioperative Outcome Estimate %
Operative Mortality 1.31%
Morbidity & Mortality 6.19%
Stroke 0.93%
Renal Failure 1%
Reoperation 2.56%
Prolonged Ventilation 3.02%
Deep Sternal Wound Infection 0.116%
Long Hospital Stay (>14 days) 3.39%
Short Hospital Stay (<6 days)* 48.9%
Clinical Summary
Planned Surgery: Isolated CABG, Urgent, First cardiovascular surgery
Demographics: 69 year old, male, 61.6kg, 163cm, BMI: 23.2 kg/m�
Lab Values: Creatinine: 0.9 mg/dL, Hematocrit: 28.9%, WBC Count: 8.6 10�/�L, Platelet Count: 305035 cells/�L
PreOp Medications: Oral diabetes control
Substance Abuse: Former smoker, Alcohol use: <=1 drink/week
Risk Factors / Comorbidities: Diabetes Mellitus , Hypertension, Family Hx of CAD
Cardiac Status: NYHA Class II, Ejection Fraction = 53%
Coronary Artery Disease: 3 vessels diseased, Non-ST Elevation MS, MS: 1 to 7 Days
Valve Disease: Moderate MR, Mild TR
Prev. Cardiac Interv: Previous PCI: Not during this episode of care
--- NOTE | 2024-11-01 09:50 | W.PN.CARDCBS ---
Addendum entered and electronically signed by Jose Manuel Louis MD 11/01/24 12:46:
I saw and examined the patient.
The Sales Contractor's note was reviewed and I agree with the note.
Comment: Briefly, 69-year-old man past medical history of CAD status post RCA PCI (2018) presenting with chest discomfort found to have elevated troponin consistent with NSTEMI
Found to have multivessel CAD on left heart catheterization and CT surgery is evaluating the patient for possible surgical revascularization
Patient was not experiencing chest discomfort this morning at the time of my evaluation
Continue medical management of CAD with aspirin, high intensity statin and heparin drip
Has been persistently tachycardic here, plan to uptitrate metoprolol for better heart rate control
Does not appear to be grossly volume overloaded on exam however patient was reporting orthopnea this a.m.
Will give one-time dose of IV Lasix and follow his clinical response
Check proBNP
Rest per Nathalia Gunter
Original Note:
Today's Communication / Plan
-
Tentatively planned for CABG 11/03
Continue aspirin, IV heparin, statin
check proBNP. IV Lasix ordered
Increase Toprol and follow heart rate trends
Impression / Plan
-
PCP: Unknown
Button Sewer: None locally, follows w/ cardiology in [facility]
Impression:
Presented with epigastric chest pain
NSTEMI, peak trop 6.5
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
s/p prox RCA PCI 03/29/2019
Suspected pneumonia
DM2
HLD
HTN
GERD
Echo 10/28/2024: EF 50-55%, stage I diastolic dysfunction, basal to mid inferior and inferolateral wall mild hypokinesis, MAC, mild to mod MR, mild TR, estimated PAP 25 mmHg
LHC 10/28/2024: LM: Tubular 40% stenosis with additional distal tapering. LAD: Proximal LAD has a 50% stenosis with diffuse moderate atherosclerotic disease into the mid LAD where a long 60% stenosis is noted. First diagonal branch has a proximal 60%
stenosis with focal 70% stenosis in midportion. LCx: Heavily calcified with a 95% ostial stenosis. OM1 has a 70% narrowing at its origin. OM2 also has a 50% ostial stenosis. RCA: Overlapping stents from proximal to mid RCA are 100% occluded. Distal
vessel is noted to fill via left to right collaterals. 2+ MR.
Plan:
-Presented with epigastric chest pain. Admitted with NSTEMI. Initial troponin 6.59, trending down thereafter. Cath with multivessel CAD.
-CT surgery evaluation ongoing. Tentative plan is for OR on , 11/03.
-Echo 10/28 with preserved EF and mild to moderate MR as noted above.
-Continue IV heparin, aspirin. Hgb 10.1 on 11/01, follow.
-Fever noted over the weekend with TMax 102F. Now on abx per primary service w/ concern for pneumonia on CXR. Blood cultures and urine culture negative. Covid negative.
-he complains of dry cough and orthopnea. will order IV lasix 40mg daily and assess response. Cr stable at 0.9. Check proBNP
-Remains in sinus tachycardia on review of telemetry. Toprol uptitrated to 25 mg daily on 10/31. Will increase to 25 mg twice daily with hold parameters
-LDL 51. Continue Crestor 20mg daily.
-Hgb A1c 6.5%. Continue DM management per primary service.
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
HPI: Owen is a 69 year old male with PMH of CAD w/ prior overlapping stents of the proximal RCA in 2019, DM2, HLD, HTN, and GERD. Presented to [facility] ER for evaluation of epigastric chest discomfort. Pain started a few days ago and he describes it as
a feeling of fullness or needing to belch, but being unable to. Denies any SOB or diaphoresis. Pain centrally located, but does radiate into jaw and L arm at times. Due to persistent pain, he came to ER for evaluation. On arrival, pain continued at
a 5/10 in severity. Labwork revealed elevated troponin of 6.59. EKG with RBBB and significant ST depressions. He was started on IV heparin and given SL nitro and morphine. Pain improved this AM. Repeat troponin trending down, however given h/o CAD
w/ recurrent symptoms concerning for angina, cardiology consulted.
Progress Note - Button Sewer
Subjective
Date of Service: November 01, 2024
Reports orthopnea and dry cough. No chest pain
Objective
Labs:
11/01/24 02:37
11/01/24 02:37
Labs
Hgb 10.1 g/dL (13.0-18.0) L 11/01/24 02:37
Hct 28.9 % (39.0-52.0) L 11/01/24 02:37
Plt Count 224 10^3/uL (130-400) 11/01/24 02:37
PT 14.0 Sec (11.4-14.6) 10/28/24 01:59
INR 1.03 10/28/24 01:59
APTT 78.5 Sec (23.4-35.0) H 11/01/24 02:37
Sodium 133 mmol/L (135-145) L 11/01/24 02:37
Potassium 4.2 mmol/L (3.5-5.1) 11/01/24 02:37
BUN 19 mg/dl (9-20) 11/01/24 02:37
Creatinine 0.9 mg/dL (0.7-1.3) 11/01/24 02:37
Glucose 154 mg/dl (70-99) H 11/01/24 02:37
Vital Signs and I&O:
Vital Signs
Temp Pulse Resp BP Pulse Ox
98.2 F 102 18 106/67 88
11/01/24 08:01 11/01/24 05:00 11/01/24 08:01 11/01/24 02:28 11/01/24 08:01
Vital Signs
Temp Pulse Resp BP Pulse Ox
98.2 F 102 18 106/67 88
11/01/24 08:01 11/01/24 05:00 11/01/24 08:01 11/01/24 02:28 11/01/24 08:01
Intake & Output
10/30/24 10/31/24 11/01/24 11/02/24
07:59 07:59 07:59 07:59
Intake Total 297.5 / 297.5 1070 / 1070
Output Total 200 / 200
Balance 97.5 / 97.5 107 / 1070
Physical Exam
Physical Exam
GEN: No distress, awake, alert, oriented x3
HEENT: supple, anicteric, mmm, EOMI
LUNGS: CTA bilaterally, no wheezes/rales
CV: Reg and tachy, S1/S2, no murmur
ABD: soft, BS+, NT/ND
EXT: No cyanosis, clubbing, edema
NEURO: Gross non-focal
SKIN: Warm, pink, dry. No rash
[2024-11-01 13:17] LABS: Glucose - Point of Care 153 mg/dl (70-99)
[2024-11-01] MEDS: NOVOLOG FLEXPEN-LOW RESISTANCE 1 UNITS SC (13:25)
--- NOTE | 2024-11-01 13:49 | CM ---
Reviewed chart. Met with Mr. Morgan to review discharge plans. Prior to admission he resides with two story home with his spouse with two steps to enter. He has a full flight of steps to get to bedroom/full bathroom. He has a powder room on the
first floor. Prior to admission he was independent with ambulation and adls. He does not have any DME in the home. He has a prescription plan and uses [facility]. He states his spouse works outside of the home but she works nearby and can
check on him. Medical work-up in progress. The discharge plan is to return home with his spouse and a home visit by the Transitional Care Nurse when medically stable.
We reviewed pre-op and post-op routines We briefly reviewed the shower instructions. We reviewed restrictions including sternal precautions and driving restrictions. We also discussed a home visit by the Transitional Care Nurse. He is agreeable to
a home visit. The plan is for CABG on , 11/03/24.
[2024-11-01] MEDS: PROTONIX IV IV (14:12)
[2024-11-01] MEDS: NSS (PRESERVATIVE FREE) IV (14:12)
[2024-11-01] MEDS: PROTONIX 40 MG PO (14:15)
[2024-11-01] MEDS: HEPARIN 25000 UNITS/250 ML IV (16:02)
--- NOTE | 2024-11-01 16:10 | W.PN.HOSP.TC ---
Today's Communication/Plan
-
Lasix
AB
CTS plans awaited- [facility] CABG that I am being told.
Assessment / Plan
Assessment / Plan
69-year-old admitted with a non-STEMI
CT Chest- Small bilateral pleural effusions with associated compressive atelectasis and/or pneumonia, right greater than left. Patchy consolidation within the posterior aspects of the bilateral upper lobes, right greater than left and suspicious for
pneumonia.Severe coronary artery calcifications.
Echo 10/28/2024-normal LV size. EF 50 to 55% basal to mid inferior and inferolateral wall mild hypokinesis. Stage I diastolic dysfunction with abnormal relaxation. Mitral sclerosis without stenosis. Thickened mitral valve leaflets. Mitral
annular calcification. Mild to moderate MR. Mild TR. PA pressure 25 mmHg
CVS: S1-S2 normal, Sm at apex
Chest: few rales
Abdomen: Soft, NT / Bowel sounds present
Extremities: No edema
# Fever- Mildly abnormal UA and also has a cough. Treat as Pneumonia NOS. COVID neg.
Blood and urine Cx neg
CXR fluid vs PNA
Continue Levaquin( Allergy to PCN)
Has SOB- ANother dose of lasix again today
# ACS/non-STEMI
Troponin trending down
History of coronary disease with RCA stent
Cardiac [id number] CAD with total occlusion of the proximal to mid RCA throughout the entire stented segment. Heavily calcified high-grade ostial stenosis circumflex. LAD is calcified with diffuse luminal irregularities and focal 60 to
70% mid stenosis. EF 45 to 50% with basal inferior lateral hypokinesis.
CT surgery consulted, final plans pending
Carotid ultrasound pending
# Depression-Resolved
# Diabetes-hemoglobin A1c-6.5
Hold metformin
NovoLog AC
Continue Accu-Cheks and sliding scale coverage
# Anemia -Due to iron and B 12 Def. Replace both. Follow hemoglobin. 10.1 today
# Hyponatremia-Follow
# Hypertension-Home regimen consist of bisoprolol, valsartan-BB restarted 10/30/24 and increased.
# Hyperlipidemia-continue statin
# MASLD-Repeat LFTS normalised.
# Enlarged prostate-continue silodosin or equivalent
# GERD-PPI
# Insomnia- Melatonin.
# DVT prophylaxis-heparin drip
# Full code
D/W at bed side
D/W RN at bed side
Part of this note was created using voice recognition system. Occasional wrong word or��sound alike� substitutions may have inadvertently occurred due to the inherent limitations of voice recognition software. If noted kindly bring it to my
attention for correction.
Anticipated Discharge: > 48 hours
Subjective/Interval History
-
Date of Service: November 01, 2024
Objective Data
-
Vital Signs:
Vital Signs
Temp Pulse Resp BP Pulse Ox
99.1 F 106 18 124/67 93
11/01/24 15:25 11/01/24 15:25 11/01/24 15:25 11/01/24 11:18 11/01/24 15:25
I&O
10/31/24 11/01/24 11/02/24
06:59 06:59 06:59
Intake Total 1070 / 1070
Balance 1070 / 1070
[2024-11-01] MEDS: CRESTOR 20 MG PO (17:07)
[2024-11-01 17:09] LABS: Glucose - Point of Care 232 mg/dl (70-99)
[2024-11-01] MEDS: NOVOLOG FLEXPEN SC (17:09)
[2024-11-01 17:44] LABS: Glucose - Point of Care 146 mg/dl (70-99)
--- NOTE | 2024-11-01 18:00 | PTCARENOTE ---
Pt received this am with no c/o of chest pain but states he feels sob with exertion. Room air sat 93%. Pt oob ad val in the room and hallway, gait steady. Pt seen by Dr. Herrera and said his surgery will be .
[2024-11-01] MEDS: FLOMAX 0.4 MG PO (19:39)
--- NOTE | 2024-11-01 21:43 | PTCARENOTE ---
Patient received at change of shift sitting at the edge of the bed. Sinus tach on the monitor. Oxygen saturation on room air initially 96%. Heparin gtt infusing as ordered. Patient reported dry cough initially, however, patient then reported he had
sputum to cough up. Discussed with house UNIT SECRETARY and a sputum culture was ordered and sent. The patient then came out of the room to report pain with coughing but then pointed to his chest. The patient reported feeling pressure as he pointed to his
chest. An ECG was completed. Patient placed on 3L NC as SaO2 on room air was 89-90%, on 3L SaO2 was 94%. BP 116/68. HR 100s-110s. CT surgery ERIKA Shipman notified. With rest the chest pressure improved per the patient. No further orders or
interventions have been placed at this time. Plan of care discussed. Call park within reach. Care ongoing.
[2024-11-01 21:49] LABS: Glucose - Point of Care 173 mg/dl (70-99)
[2024-11-01] MEDS: MELATONIN 5 MG PO (22:18)
[2024-11-02 02:00] VITALS: BMI 23.1
[2024-11-02 03:56] VITALS: BP 108/72
[2024-11-02 04:18] LABS: Hematocrit 28.3 % (39.0-52.0); Hemoglobin 9.8 g/dL (13.0-18.0); Mean Corp Hgb Conc. 34.6 g/dL (33.0-37.0); Mean Corpuscular Volume 85.0 fL (80.0-94.0); Platelet Count 243 10^3/uL (130-400); Red Cell Dist. Width 13.2 % (11.5-14.5)
[2024-11-02 04:28] LABS: INR 1.10; PT 14.8 Sec (11.4-14.6)
[2024-11-02 04:30] LABS: APTT 98.8 Sec (23.4-35.0)
[2024-11-02 05:03] LABS: Blood Urea Nitrogen 19 mg/dl (9-20); Calcium 8.4 mg/dl (8.4-10.2); Carbon Dioxide 23 mmol/L (22-30); Chloride 103 mmol/L (98-107); Estimated Creatinine Clearance 66 ml/min; Glucose 145 mg/dl (70-99); Magnesium 2.1 mg/dl (1.6-2.3); Potassium 4.0 mmol/L (3.5-5.1); Sodium 133 mmol/L (135-145); eGFR > 60.00
--- NOTE | 2024-11-02 05:27 | W.PN.CT ---
Today's Communication / Plan
-
Plan:
-Cont. current medical management per primary team
-Cont. current meds (ASA, Heparin gtt, Crestor, Lasix, Toprol XL, Protonix)
-Avoid PARKER-I/ARB's/CCB in preparation for OR
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
-Needs to be seen by Anesthesia
-For CABG +/- MARY clip by Dr. Herrera tomorrow 11/03
-Will cont. to closely monitor
Assessment / Plan
-
Assessment:
-Severe 3v CAD/40% LM
-NSTEMI (peak trop 6.590)
-Hx CAD S/P PCI with stent x 2 to RCA, 03/29/2019
-LVEF 50-55%, per TTE 10/28/24
-Mild-moderate MR
-Mild TR
-Recent fever, suspected b/l RUL pneumonia (on empiric Levaquin, PCN allergy)
-T2DM (hgb A1C 6.5)
-HLD
-HTN
-GERD
-BPH (on Flomax)
-Former tobacco use (quit 1989)
Discussed patient care with: Cardiology, Nursing, Respiratory Therapy, Pharmacy and Care Team
Subjective
-
Date of Service: November 02, 2024
No issues overnight. Had productive cough with c/o chest pressure with cough
Objective Data
-
Lab Results
11/02/24 04:01
11/02/24 04:01
PT 14.8 Sec (11.4-14.6) H 11/02/24 04:01
INR 1.10 11/02/24 04:01
APTT 98.8 Sec (23.4-35.0) H 11/02/24 04:01
Vital Signs
Vital Signs
Temp Pulse Resp BP Pulse Ox
99.0 F 89 16 108/72 94
11/02/24 03:56 11/02/24 05:00 11/02/24 03:56 11/02/24 03:56 11/02/24 04:05
SaO2: 94 (3L)
Physical Exam
-
General: Awake, Oriented and AOx3
Cardiovascular: Regular rate & rhythm and No Murmurs
Respiratory: Clear
Extremities: No Edema
Data Reviewed
-
Lab Results: Results Reviewed
Medications: Active Meds Reviewed
Chest X-Ray: Report Reviewed and Image Reviewed
ECG: Report Reviewed and Image Reviewed
--- NOTE | 2024-11-02 06:19 | W.PN.UPDATE ---
Addendum entered and electronically signed by Chantell Ambrocio PA-C 11/02/24 07:26:
correction to below--planned CABG tomorrow 11/03/24
Original Note:
Update Note
Progress Note Update
CARDIAC SURGERY ATTENDING:
I had a long conversation with Mr. Owen Morgan at his bedside on 11/01/2024. We reviewed his coronary pathology and minor valvular pathology. I believe he will benefit from surgical coronary revascularization. He has relatively small coronary
targets, but they appear amenable to bypass. I anticipate MICKI-to-LAD, GSV to diagonal, GSV to OM 1, and GSV to RPDA. I will also intraoperatively evaluate his terminal circumflex branch for bypass. I recommended concurrent exclusion of his left
atrial appendage at the time of surgery. We reviewed the operative procedure in great detail, the associated procedural risks (including, but not limited to, , stroke, MS, arrhythmia, PPM requirement, PNA, DAWSON/F, bleeding, and infection),
discussed the expected in-hospital postprocedural course, and reviewed the expected outpatient recovery. All questions were answered to the best of my abilities. The patient is agreeable to proceed. I have tentatively scheduled his procedure for
tomorrow 11/04/2024. He also has mild to moderate MR. It is my hope that this will not need to be addressed.
Please call with any questions or concerns.
Thank you.
Tay Herrera MD
[phone]
[2024-11-02 07:18] VITALS: BP 117/66
[2024-11-02 07:23] LABS: Glucose - Point of Care 138 mg/dl (70-99)
--- NOTE | 2024-11-02 07:50 | PTCARENOTE ---
Assumed care of pt from prev nsg shift; Pt AAOx3 w/no c/o CP or SOB. Pt VSS w/HR in the 90's & BP 117/66. Pt is SR/ST on telemetry monitoring. Pt w/IV Heparin drip infusing through patent IV line as ordered. Pt w/R groin site from cath a few days
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 Discussed surgical prep plan for erika & azam TYSON w/pt. Pt verbalized his understanding. Pt w/call park within reach & plan ongoing.
--- NOTE | 2024-11-02 09:06 | W.PN.CARDCBS ---
Addendum entered and electronically signed by Jose Manuel Louis MD 11/02/24 13:53:
I saw and examined the patient on morning rounds.
The Health Assistant's note was reviewed and I agree with the note.
Comment: Briefly, 69-year-old man past medical history of CAD status post RCA PCI (2018) presenting with chest discomfort found to have elevated troponin consistent with NSTEMI
Found to have multivessel CAD on left heart catheterization and CT surgery is evaluating the patient for possible surgical revascularization
Patient was not experiencing chest discomfort this morning at the time of my evaluation
Continue medical management of CAD with aspirin, high intensity statin and heparin drip
Has been persistently tachycardic here, plan to further uptitrate metoprolol for better heart rate control
Continues to report orthopnea and proBNP remains elevated
Plan for additional dose of IV Lasix today
Rest per Nathalia Gunter
Original Note:
Today's Communication / Plan
-
For CABG in a.m.
continue asa, IV heparin, toprol, statin
continue IV lasix
Impression / Plan
-
PCP: Unknown
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
Impression:
Presented with epigastric chest pain
NSTEMI, peak trop 6.5
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
s/p prox RCA PCI 03/29/2019
Suspected pneumonia
DM2
HLD
HTN
GERD
Echo 10/28/2024: EF 50-55%, stage I diastolic dysfunction, basal to mid inferior and inferolateral wall mild hypokinesis, MAC, mild to mod MR, mild TR, estimated PAP 25 mmHg
LHC 10/28/2024: LM: Tubular 40% stenosis with additional distal tapering. LAD: Proximal LAD has a 50% stenosis with diffuse moderate atherosclerotic disease into the mid LAD where a long 60% stenosis is noted. First diagonal branch has a proximal 60%
stenosis with focal 70% stenosis in midportion. LCx: Heavily calcified with a 95% ostial stenosis. OM1 has a 70% narrowing at its origin. OM2 also has a 50% ostial stenosis. RCA: Overlapping stents from proximal to mid RCA are 100% occluded. Distal
vessel is noted to fill via left to right collaterals. 2+ MR.
Plan:
-Presented with epigastric chest pain. Admitted with NSTEMI. Initial troponin 6.59, trending down thereafter. Cath with multivessel CAD.
-Plan for CABG 11/03
-Carotid ultrasound negative for flow limiting carotid stenosis
-Echo 10/28 with preserved EF and mild to moderate MR as noted above.
-Continue IV heparin, aspirin. Hgb 9.8, follow.
-Fever noted over the weekend with Tmax 102F. Now on abx per primary service w/ concern for pneumonia on CXR. Blood cultures and urine culture negative. Covid negative. pulm following, to determine need for continued abx.
-proBNP 4470 on 11/01. continue IV lasix. patient reports breathing improving
-Remains in sinus rhythm on review of telemetry. continue toprol 25mg BID
-LDL 51. Continue Crestor 20mg daily.
-Hgb A1c 6.5%. Continue DM management per primary service.
-Discussed with CT surgery PA
HPI: Owen is a 69 year old male with PMH of CAD w/ prior overlapping stents of the proximal RCA in 2019, DM2, HLD, HTN, and GERD. Presented to [facility] ER for evaluation of epigastric chest discomfort. Pain started a few days ago and he describes it as
a feeling of fullness or needing to belch, but being unable to. Denies any SOB or diaphoresis. Pain centrally located, but does radiate into jaw and L arm at times. Due to persistent pain, he came to ER for evaluation. On arrival, pain continued at
a 5/10 in severity. Labwork revealed elevated troponin of 6.59. EKG with RBBB and significant ST depressions. He was started on IV heparin and given SL nitro and morphine. Pain improved this AM. Repeat troponin trending down, however given h/o CAD
w/ recurrent symptoms concerning for angina, cardiology consulted.
Progress Note - Television Installer
Subjective
Date of Service: November 02, 2024
Denies current chest pain or shortness of breath
Objective
Labs:
11/02/24 04:01
11/02/24 04:01
Labs
Hgb 9.8 g/dL (13.0-18.0) L 11/02/24 04:01
Hct 28.3 % (39.0-52.0) L 11/02/24 04:01
Plt Count 243 10^3/uL (130-400) 11/02/24 04:01
PT 14.8 Sec (11.4-14.6) H 11/02/24 04:01
INR 1.10 11/02/24 04:01
APTT 98.8 Sec (23.4-35.0) H 11/02/24 04:01
Sodium 133 mmol/L (135-145) L 11/02/24 04:01
Potassium 4.0 mmol/L (3.5-5.1) 11/02/24 04:01
BUN 19 mg/dl (9-20) 11/02/24 04:01
Creatinine 0.9 mg/dL (0.7-1.3) 11/02/24 04:01
Glucose 145 mg/dl (70-99) H 11/02/24 04:01
Vital Signs and I&O:
Vital Signs
Temp Pulse Resp BP Pulse Ox
98.3 F 108 18 117/66 82
11/02/24 07:17 11/02/24 08:00 11/02/24 07:17 11/02/24 07:18 11/02/24 07:18
Vital Signs
Temp Pulse Resp BP Pulse Ox
98.3 F 108 18 117/66 82
11/02/24 07:17 11/02/24 08:00 11/02/24 07:17 11/02/24 07:18 11/02/24 07:18
Intake & Output
10/31/24 11/01/24 11/02/24 11/03/24
07:59 07:59 07:59 07:59
Intake Total 1070 / 1070
Balance 1070 / 1070
Physical Exam
Physical Exam
GEN: No distress, awake, alert, oriented x3
HEENT: supple, anicteric, mmm, EOMI
LUNGS: CTA bilaterally, no wheezes/rales
CV: Reg, S1/S2, no murmur
ABD: soft, BS+, NT/ND
EXT: No cyanosis, clubbing, edema
NEURO: Gross non-focal
SKIN: Warm, pink, dry. No rash
--- NOTE | 2024-11-02 09:56 | W.PN.HOSP.TC ---
Today's Communication/Plan
-
Continue Lasix
Heparin drip
CABG planned for tomorrow
Assessment / Plan
Assessment / Plan
69-year-old admitted with a non-STEMI
CT Chest- Small bilateral pleural effusions with associated compressive atelectasis and/or pneumonia, right greater than left. Patchy consolidation within the posterior aspects of the bilateral upper lobes, right greater than left and suspicious for
pneumonia.Severe coronary artery calcifications.
Echo 10/28/2024-normal LV size. EF 50 to 55% basal to mid inferior and inferolateral wall mild hypokinesis. Stage I diastolic dysfunction with abnormal relaxation. Mitral sclerosis without stenosis. Thickened mitral valve leaflets. Mitral
annular calcification. Mild to moderate MR. Mild TR. PA pressure 25 mmHg
CVS: S1-S2 normal, Sm at apex
Chest: few rales
Abdomen: Soft, NT / Bowel sounds present
Extremities: No edema
# Fever- Mildly abnormal UA and also has a cough. Treat as Pneumonia NOS. COVID neg.
Blood and urine Cx neg
CXR fluid vs PNA
Continue Levaquin( Allergy to PCN)
SOB better- ANother dose of lasix today
# ACS/non-STEMI
Troponin trending down
History of coronary disease with RCA stent
Cardiac [id number] CAD with total occlusion of the proximal to mid RCA throughout the entire stented segment. Heavily calcified high-grade ostial stenosis circumflex. LAD is calcified with diffuse luminal irregularities and focal 60 to
70% mid stenosis. EF 45 to 50% with basal inferior lateral hypokinesis.
CT surgery consulted,for CABG on 11/03/24
Carotid ultrasound normal
# Depression-Resolved
# Diabetes-hemoglobin A1c-6.5
Hold metformin
NovoLog AC
Continue Accu-Cheks and sliding scale coverage
# Anemia -Due to iron and B 12 Def. Replace both. Follow hemoglobin.
# Hyponatremia-Follow
# Hypertension-Home regimen consist of bisoprolol, valsartan-BB restarted 10/30/24 and increased.
# Hyperlipidemia-continue statin
# MASLD-Repeat LFTS normalised.
# Enlarged prostate-continue silodosin or equivalent
# GERD-PPI
# Insomnia- Melatonin.
# DVT prophylaxis-heparin drip
# Full code
D/W RN at bed side
Part of this note was created using voice recognition system. Occasional wrong word or��sound alike� substitutions may have inadvertently occurred due to the inherent limitations of voice recognition software. If noted kindly bring it to my
attention for correction.
Anticipated Discharge: > 48 hours
Subjective/Interval History
-
Date of Service: November 02, 2024
Objective Data
-
Labs:
Laboratory Results
11/02/24
04:01
WBC 7.5
Hgb 9.8 L
Hct 28.3 L
Plt Count 243
PT 14.8 H
INR 1.10
APTT 98.8 H
Sodium 133 L
Potassium 4.0
Chloride 103
Carbon Dioxide 23
BUN 19
Creatinine 0.9
Glucose 145 H
Calcium 8.4
Vital Signs:
Vital Signs
Temp Pulse Resp BP Pulse Ox
98.3 F 108 18 117/66 82
11/02/24 07:17 11/02/24 08:00 11/02/24 07:17 11/02/24 07:18 11/02/24 07:18
I&O
11/01/24 11/02/24 11/03/24
06:59 06:59 06:59
Intake Total 1070 / 1070
Balance 1070 / 1070
[2024-11-02] MEDS: NOVOLOG FLEXPEN 2 UNITS SC ×3 (10:26→19:39)
[2024-11-02] MEDS: PROTONIX 40 MG PO (10:28)
[2024-11-02] MEDS: TOPROL XL 25 MG PO ×2 (10:28→20:16)
[2024-11-02] MEDS: ASPIR LOW (ENTERIC COATED) 81 MG PO (10:28)
[2024-11-02] MEDS: FEOSOL 325 MG PO ×2 (10:29→20:16)
[2024-11-02] MEDS: LASIX 40 MG IV (10:29)
[2024-11-02] MEDS: LEVAQUIN 750 MG PO (10:29)
[2024-11-02] MEDS: MAGNESIUM OXIDE 500 MG PO (10:29)
[2024-11-02] MEDS: NOVOLOG FLEXPEN-LOW RESISTANCE SC ×2 (10:30→19:38)
[2024-11-02] MEDS: MIRALAX PO (10:30)
[2024-11-02] MEDS: SINGULAIR 10 MG PO (10:33)
[2024-11-02] MEDS: SENOKOT PO ×2 (10:34→20:07)
[2024-11-02] MEDS: CYANOCOBALAMIN 1000 MCG IM (10:58)
--- NOTE | 2024-11-02 11:21 | CM ---
Reviewed chart. Met with Mr. Morgan to review discharge plans. He states he is feeling okay. He is planning on going for a CABG in a.m. Prior to admission he resides with his spouse in a two story home with two steps to enter. He has a full
flight of steps to get to bedroom/full bathroom. He has a powder room on the first floor. Prior to admission he was independent with ambulation and adls. He does not have any DME in the home. He has a prescription plan and uses [facility].
His spouse works outside the home but will be able to check on him if needed. Medical work-up in progress. The discharge plan is to return home with his spouse and a home visit by the Transitional Care Nurse when medically stable.
--- NOTE | 2024-11-02 11:40 | CON.PUL ---
Consultation
Consultation Request
Date/Time Consultation Requested: 11/02/2024
Date/Time Consultation Performed: 11/02/2024
Requesting Provider: Dr. Herrera
Performing Provider: Dr. Deny Sanchez
Reason for Consultation: Abnormal chest [id number] pneumonia
Medical History
-
History of Present Illness:
69-year-old man with significant history of atherosclerotic disease, type 2 diabetes who came to the emergency room complaining of epigastric pain for longer than 24 hours. He reported as pressure in the epigastrium. Discomfort was typical for
possible angina.
He denies any cough, wheezing, phlegm production, fevers or chills.
Patient only reports cough with thin secretions. Denies hemoptysis.
He clinically feels better after diuresis.
Denies sick contacts
Denies upper respiratory symptoms
Denies GERD
Patient does have history of coronary stents in 2019. He is [facility] with [facility].
Patient found to have abnormal EKG, positive troponins. Cardiology consulted. Cardiac catheterization performed. He was found to have triple-vessel coronary artery disease. Ejection fraction preserved. CT surgery evaluated patient and he was
deemed candidate for revascularization.
Part of the evaluation included a CT of the chest that demonstrated bilateral infiltrates, groundglass opacities upper lobe predominant. We were consulted for evaluation of infiltrates.
-
Does report snoring-possible witnessed apneas. Has never been tested for obstructive sleep apnea.
He has lost some weight with lifestyle modifications after he was diagnosed with fatty liver.
Past Medical History
Past Medical History: Other (See assessment and plan)
Social History
Tobacco: Former Smoker (Quit in 1989)
Alcohol: Occasional (Rare)
Drug: None
Personal:
Family History
Family History: Reviewed & Not Pertinent
Allergies / Home Medications
Allergies
Allergy/AdvReac Type Severity Reaction Status Date / Time
Penicillins Allergy Unknown Verified 02/24/09 13:50
Home Medications
�Medication �Instructions �Recorded �Confirmed �Last Taken �Type
aspirin 81 mg tablet 100 mg PO DAILY Blood Clot 02/24/09 10/28/24 02/22/09 History
Prevention/Tx
simvastatin 10 mg tablet 20 mg PO DAILY High Cholesterol 02/24/09 10/28/24 02/23/09 History
bisoprolol fumarate 2.5 mg tablet 2.5 mg PO DAILY Heart 10/28/24 10/28/24 Unknown History
Disease/Condition
metformin 500 mg tablet 500 mg PO BID Diabetes 10/28/24 10/28/24 Unknown History
montelukast 10 mg tablet 10 mg PO DAILY Lung/Breathing 10/28/24 10/28/24 Unknown History
Issues
rosuvastatin 20 mg tablet 20 mg PO DAILY High Cholesterol 10/28/24 10/28/24 Unknown History
silodosin 8 mg capsule 8 mg PO DAILY Urinary Issue 10/28/24 10/28/24 Unknown History
valsartan 80 mg tablet (Diovan) 80 mg PO DAILY Blood Pressure 10/28/24 10/28/24 Unknown History
Review of Systems
-
History Source: Patient
All other systems: Negative unless noted
Vitals / Labs / Diagnostic Testing
Vital Signs
Temp Pulse Resp BP Pulse Ox
98.3 F 108 18 117/66 82
11/02/24 07:17 11/02/24 08:00 11/02/24 07:17 11/02/24 07:18 11/02/24 07:18
Lab Data
11/02/24 04:01
11/02/24 04:01
Laboratory Results
11/02/24
04:01
PT 14.8 H
INR 1.10
APTT 98.8 H
Microbiology
10/29/24 21:43 Blood/Venous Blood Culture - Preliminary
No Growth in 72 hours- Final report to follow
10/29/24 21:14 Blood/Venous Blood Culture - Preliminary
No Growth in 72 hours- Final report to follow
10/29/24 21:43 Urine Urine Culture - Final
NO GROWTH
Diagnostic Testing:
Physical Exam
-
HEENT: Normocephalic
Cardiovascular: S1/S2
Respiratory: Clear and Non-Labored Respirations
GI: Soft and Non Distended
Neurology: Awake, Alert, AO x 3 and No Motor Deficits
Skin: Warm
General: Comfortable
Assessment
-
69-year-old male with past medical history of coronary artery disease, type 2 diabetes who came with epigastric pain on 10/28/2024. Found to have positive troponin, abnormal EKG. Subsequent cardiac catheterization demonstrated triple-vessel
coronary artery disease. CT of the chest on admission demonstrated bilateral infiltrates. He is planned to get coronary artery bypass during this admission. We were consulted for evaluation of infiltrates.
Abnormal CT chest-bilateral infiltrates with bilateral small pleural effusions.
Fever/leukocytosis on admission.
Leukocytosis-stress reaction-rapidly recovered.
Non-ST elevation myocardial infarction
Increased proBNP in the 4000's.
Anemia-iron deficiency/B12 deficiency
Snoring-
Conditions present prior admission:
Type 2 diabetes
Fatty liver
GERD
BPH
Coronary artery disease status post stents 2019
Chronic insomnia
Enlarged prostate
Former smoker
Assessment and plan:
Based on clinical presentation, suspect pulmonary changes are more related to acute coronary syndrome/pulmonary edema-small bilateral pleural effusion, increased proBNP, upper lobe predominant infiltrates.
Patient did have some fever for 24 hours but rapidly resolved, initially with leukocytosis but rapidly resolved-? Related to acute coronary syndrome.
There is no significant phlegm production and patient never felt sick or had any upper respiratory symptoms -Main clinical presentation was epigastric discomfort.
-
Currently on Levaquin day 4-will obtain procalcitonin-if negative for minimally elevated will complete only 5 days of antibiotics.
Lung exam is relatively clear
Patient ambulated to the restroom without oxygen requirements
No significant purulent sputum production.
No prior pulmonary disease.
From my perspective may proceed with coronary artery bypass as scheduled tomorrow.
-
Radiographic follow-up will be needed in the outpatient setting-discussed with patient. He is a former smoker.
-
Snoring: Discussed with patient possibility of obstructive sleep apnea. was present and she agrees.
Information will be left in the chart for follow-up in the outpatient setting.
-
Continue cardiac management
Diuresis-patient states that he feels better after few doses of IV diuresis.
-
Will continue to follow post CABG in the critical care unit.

Data reviewed:
CT chest: 10/28/2024:
Small bilateral pleural effusions with compressive atelectasis. Patchy consolidation within the posterior aspects of bilateral upper lobes, right greater than left. Severe coronary artery calcifications.
Echo 10/28/2024: EF 50-55% by Alonso's method of discs. Basal to mid inferior and inferolateral wall mild hypokinesis. Mitral annular calcification. Mild to moderate mitral regurgitation.
Mild tricuspid regurgitation. Estimated pulmonary artery pressure of 25 mmHg
Cardiac catheterization 10/28/2024:
1. Multivessel coronary artery disease with chronic total occlusion of the proximal to mid RCA throughout the entire stented segment. The distal vessel is noted to fill via [id number] collaterals. There is a heavily calcified high-grade ostial
stenosis as the circumflex arises at an acute angle from the left main. The LAD is calcified with diffuse luminal irregularities and focal 60-70% mid stenosis. Branch vessel disease is noted at the origin of the diagonal branch, OM1, OM 2.
2. Low normal to mildly reduced LVEF estimated at 45-50% with basal inferolateral hypokinesis
[2024-11-02 11:45] VITALS: BP 103/77
[2024-11-02 12:38] LABS: Glucose - Point of Care 200 mg/dl (70-99)
[2024-11-02] MEDS: NOVOLOG FLEXPEN-LOW RESISTANCE 2 UNITS SC (14:23)
[2024-11-02] MEDS: HEPARIN 25000 UNITS/250 ML IV (14:53)
[2024-11-02 15:18] VITALS: BP 104/52
[2024-11-02 15:25] LABS: Procalcitonin 0.05 ng/ml (0.0-0.25)
[2024-11-02 16:54] LABS: Glucose - Point of Care 212 mg/dl (70-99)
[2024-11-02 19:38] LABS: Glucose - Point of Care 133 mg/dl (70-99)
[2024-11-02] MEDS: TOPROL XL 12.5 MG PO (20:15)
[2024-11-02] MEDS: CRESTOR 20 MG PO (20:16)
[2024-11-02] MEDS: FLOMAX 0.4 MG PO (20:16)
[2024-11-02 20:38] VITALS: BP 119/74
[2024-11-02 22:37] VITALS: BP 107/66
[2024-11-02] MEDS: MELATONIN 5 MG PO (22:41)
[2024-11-02 22:43] LABS: Glucose - Point of Care 130 mg/dl (70-99)
--- NOTE | 2024-11-02 23:02 | PTCARENOTE ---
Received patient at change of shift. ST on the monitor, HR in the 100s. Heparin running as per protocol. Pt clipped and bathed with CHG. Educated pt on plan of care for the morning, NPO at midnight, pt verbalizes understanding. No complaints from pt
at this time, call park within reach.
[2024-11-03] VITALS (14 sets, daily range): BP systolic 84–119; BP diastolic 59–75; BMI 22.3
[2024-11-03 05:07] LABS: Hematocrit 29.4 % (39.0-52.0); Hemoglobin 10.1 g/dL (13.0-18.0); Mean Corp Hgb Conc. 34.4 g/dL (33.0-37.0); Mean Corpuscular Volume 85.0 fL (80.0-94.0); Platelet Count 272 10^3/uL (130-400); Red Cell Dist. Width 13.2 % (11.5-14.5)
[2024-11-03 05:27] LABS: APTT 126.2 Sec (23.4-35.0)
[2024-11-03 05:34] LABS: Glucose - Point of Care 161 mg/dl (70-99)
[2024-11-03] MEDS: BACTROBAN 2% OINTMENT 1 APPLIC NASAL ×2 (05:57→20:22)
[2024-11-03] MEDS: LOPRESSOR 25 MG PO (05:57)
[2024-11-03] MEDS: MAGNESIUM OXIDE 500 MG PO (05:58)
[2024-11-03] MEDS: PROTONIX 40 MG PO (05:58)
--- NOTE | 2024-11-03 06:18 | W.CVOR.SURPR ---
CVOR Surgeon Immed Pre Op
-
I have examined this patient prior to performance of the scheduled procedure.
The patient's condition is unchanged from the time of the dictated/written History and
Physical and the patient is able to undergo the scheduled procedure.
[2024-11-03 06:41] LABS: Blood Urea Nitrogen 20 mg/dl (9-20); Calcium 8.7 mg/dl (8.4-10.2); Carbon Dioxide 21 mmol/L (22-30); Chloride 104 mmol/L (98-107); Estimated Creatinine Clearance 59 ml/min; Glucose 134 mg/dl (70-99); Magnesium 2.0 mg/dl (1.6-2.3); Potassium 4.0 mmol/L (3.5-5.1); Sodium 133 mmol/L (135-145); eGFR > 60.00
[2024-11-03 07:29] LABS: ACT+ - POC 126 Seconds (82-134)
[2024-11-03 07:39] LABS: Urine Character Clear (Clear)
[2024-11-03 07:52] LABS: Urine Squamous Cell 0-2 /LPF (Few)
--- NOTE | 2024-11-03 08:51 | W.PN.INTV ---
Today's Communication / Plan
Recommendations
Intubated perioperatively, s/p CABx 4
SAT/SBT per protocol
Wean off pressors as able
Effusions noted, congestion present on CXR, may consider diuresis if needed
Ongoing postop management per team
Assessment
-
69-year-old male with past medical history of coronary artery disease, type 2 diabetes who came with epigastric pain on 10/28/2024. Found to have positive troponin, abnormal EKG. Subsequent cardiac catheterization demonstrated triple-vessel
coronary artery disease. CT of the chest on admission demonstrated bilateral infiltrates. He is planned to get coronary artery bypass during this admission. We were consulted for evaluation of infiltrates.
CAD s/p CABG x 4 (MICKI to LAD, GSV to D1, GSV to OM1, GSV to RPDA) 11/03/24
Periop intubation, MV
Abnormal CT chest-bilateral infiltrates with bilateral small pleural effusions.
Fever
Leukocytosis-stress reaction-rapidly recovered.
Non-ST elevation myocardial infarction
Increased proBNP in the 3999's.
Anemia-iron deficiency/B12 deficiency
Snoring
Conditions present prior admission:
Type 2 diabetes
Fatty liver
GERD
BPH
Coronary artery disease status post stents 2018
Chronic insomnia
Enlarged prostate
Former smoker
Plan
S/p CABD x 4 POD #0
Titrate off pressors per protocol
ECHO reviewed with normal function
PA catheter readings reviewed
Management of chest tubes per primary service
Intubated/sedated, initiate SAT when able
Pain control
RASS goal of 0 to -1
Intubated for procedure, SBT trial when patient able to spontaneously breath
Current vent settings: SIMV 500/12/40/5
ABG(s) reviewed/adequate
CXR with mild congestion, low lung volumes, ETT in good position, lines/tubes in place
Extubate per protocol
Maintain supplement oxygen as needed
No prior history of pulmonary disease--effusions noted on imaging
Suspect pulmonary changes are more related to acute coronary syndrome/pulmonary edema-small bilateral pleural effusion, increased proBNP, upper lobe predominant infiltrates.
Patient did have some fever for 24 hours but rapidly resolved, initially with leukocytosis but rapidly resolved-? Related to acute coronary syndrome.
Currently on Levaquin day 4-will obtain procalcitonin-if negative for minimally elevated will complete only 5 days of antibiotics.
No prior PFTs for review
Can add nebulizers if needed
Aspiration precautions
Encouraged incentive spirometry, OOB/ambulation/early mobility
Advance diet as tolerated following extubation
GI prophylaxis if indicated for mechanical ventilation >48 hours
Monitor critical I/O's
Meredith/chest tube output
Hb/platelets postoperatively stable
Trend CBC for now
Can transfuse if indicated for Hb <7, plt <50 in surgical patients
DVT prophylaxis including SCDs
Insulin protocol initiated and ongoing
Transition to SQ/off as indicated per team
Radiographic follow-up will be needed in the outpatient setting-discussed with patient. He is a former smoker.
Snoring: Discussed with patient possibility of obstructive sleep apnea. was present and she agrees.
Information will be left in the chart for follow-up in the outpatient setting.
We will follow
Data Reviewed:
CXR 11/03/24- Postoperative tubes/lines. Improved mild pulmonary interstitial edema.
CT chest: 10/28/2024: Small bilateral pleural effusions with compressive atelectasis. Patchy consolidation within the posterior aspects of bilateral upper lobes, right greater than left. Severe coronary artery calcifications.
Echo 10/28/2024: EF 50-55% by Alonso's method of discs. Basal to mid inferior and inferolateral wall mild hypokinesis. Mitral annular calcification. Mild to moderate mitral regurgitation.
Mild tricuspid regurgitation. Estimated pulmonary artery pressure of 25 mmHg
Cardiac catheterization 10/28/2024:
1. Multivessel coronary artery disease with chronic total occlusion of the proximal to mid RCA throughout the entire stented segment. The distal vessel is noted to fill via [id number] collaterals. There is a heavily calcified high-grade ostial
stenosis as the circumflex arises at an acute angle from the left main. The LAD is calcified with diffuse luminal irregularities and focal 60-70% mid stenosis. Branch vessel disease is noted at the origin of the diagonal branch, OM1, OM 2.
2. Low normal to mildly reduced LVEF estimated at 45-50% with basal inferolateral hypokinesis
Critical Care time 51 mins -- The patient is admitted for acute critical illness for the treatment of vital organ failure and/or prevention of further life-threatening conditions. Total care includes time spent in review of history, physical exam,
medications, hemodynamic/ventilator parameters, laboratory data, imaging and discussion with house staff, pharmacy, respiratory therapy, drafter electrical, and nursing.
Subjective Dataa
Subjective Data
Date of Service:
Date of Service: November 03, 2024
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
Subjective:
s/p CAB now in CVICU
intubated, sedated
remains on pressors
Objective Data
Data Reviewed
Vital Signs / I&O / Oxygen:
Vital Signs
Temp Pulse Resp BP Pulse Ox
98.4 F 107 18 100/64 95
11/03/24 04:47 11/03/24 05:57 11/03/24 04:47 11/03/24 05:57 11/03/24 04:47
Intake and Output
11/02/24 11/03/24 11/04/24
06:59 06:59 06:59
Intake Total 1325 / 1325
Balance 1325 / 1325
SaO2 95
Nasal Cannula flow liters per 3
minute
Physical Exam
General: Comfortable and Other (NAD/sedated)
HEENT: Normocephalic, Anicteric and Moist Mucous Membranes
Cardiovascular: S1-S2 and Regular Rhythm
Respiratory: Clear, Non-Labored Respirations, ET Tube and Chest Tube
GI: Soft, Non Distended and Non Tender
Neurology: Unresponsive (sedated) and Non Verbal
Skin: Warm, Dry and Good Color
Labs/Micro/Reports
Lab Data
11/03/24 04:55
11/03/24 04:55
Laboratory Results
11/03/24
04:56
APTT 126.2 H
Microbiology
10/29/24 21:43 Blood/Venous Blood Culture - Preliminary
No Growth in 4 days- Final report to follow
10/29/24 21:14 Blood/Venous Blood Culture - Preliminary
No Growth in 4 days- Final report to follow
11/01/24 19:52 Sputum Gram Stain - Preliminary
10/29/24 21:43 Urine Urine Culture - Final
NO GROWTH
--- NOTE | 2024-11-03 09:09 | CM ---
pt in OR today, cm to follow.
--- NOTE | 2024-11-03 09:18 | W.PN.UPDATE ---
Update Note
Progress Note Update
patient in the OR, not in the room
[2024-11-03 09:28] LABS: ACT+ - POC 403 Seconds (82-134)
[2024-11-03 09:37] LABS: ACT+ - POC 465 Seconds (82-134)
[2024-11-03 09:48] LABS: ACT+ - POC 449 Seconds (82-134)
[2024-11-03 10:00] LABS: ACT+ - POC 520 Seconds (82-134)
[2024-11-03 10:09] LABS: ACT+ - POC 502 Seconds (82-134)
[2024-11-03 10:41] LABS: ACT+ - POC 701 Seconds (82-134)
[2024-11-03 10:59] LABS: B.E. - POC 2.4 mmol/L; Glucose - POC 173 mg/dl (70-99); HCO3 - POC 26 mmol/L (21-28); Hematocrit - POC 22 % PCV (42-52); Hemodilution- POC Yes; Hemoglobin Calculated - POC 7.6; Ionized Calcium - POC 0.96 mmol/L (1.15-1.33); Lactate - POC 1.27 mmol/L (0.36-0.75); O2 Saturation %Calculated-POC 100.0 % (94-98); PCO2 - POC 35 mmHg (35-48); PO2 - POC 338 mmHg (83-108); POC Comment CPB; Potassium - POC 4.1 mmol/L (3.5-5.1); Sodium - POC 138 mmol/L (136-145); Specimen Type - POC Arterial; pH - POC 7.48 (7.35-7.45)
[2024-11-03 11:10] LABS: ACT+ - POC 642 Seconds (82-134)
[2024-11-03 11:26] LABS: B.E. - POC 1.2 mmol/L; Glucose - POC 157 mg/dl (70-99); HCO3 - POC 26 mmol/L (21-28); Hematocrit - POC 23 % PCV (42-52); Hemodilution- POC Yes; Hemoglobin Calculated - POC 7.9; Ionized Calcium - POC 0.98 mmol/L (1.15-1.33); Lactate - POC 1.85 mmol/L (0.36-0.75); O2 Saturation %Calculated-POC 99.9 % (94-98); PCO2 - POC 41 mmHg (35-48); PO2 - POC 293 mmHg (83-108); POC Comment CPB; Potassium - POC 4.2 mmol/L (3.5-5.1); Sodium - POC 139 mmol/L (136-145); Specimen Type - POC Arterial; pH - POC 7.41 (7.35-7.45)
[2024-11-03 11:36] LABS: ACT+ - POC 610 Seconds (82-134)
[2024-11-03] MEDS: ANCEF 10 IV ×2 (11:54)
[2024-11-03 12:09] LABS: B.E. - POC -0.2 mmol/L; Glucose - POC 160 mg/dl (70-99); HCO3 - POC 25 mmol/L (21-28); Hematocrit - POC 25 % PCV (42-52); Hemodilution- POC Yes; Hemoglobin Calculated - POC 8.5; Ionized Calcium - POC 1.02 mmol/L (1.15-1.33); Lactate - POC 2.30 mmol/L (0.36-0.75); O2 Saturation %Calculated-POC 99.9 % (94-98); PCO2 - POC 43 mmHg (35-48); PO2 - POC 358 mmHg (83-108); POC Comment WARM REPEAT; Potassium - POC 4.3 mmol/L (3.5-5.1); Sodium - POC 141 mmol/L (136-145); Specimen Type - POC Arterial; pH - POC 7.37 (7.35-7.45)
[2024-11-03 12:19] LABS: ACT+ - POC 129 Seconds (82-134)
[2024-11-03 12:28] LABS: B.E. - POC -2.5 mmol/L; Glucose - POC 106 mg/dl (70-99); HCO3 - POC 22 mmol/L (21-28); Hematocrit - POC 23 % PCV (42-52); Hemodilution- POC Yes; Hemoglobin Calculated - POC 7.9; Ionized Calcium - POC 1.28 mmol/L (1.15-1.33); Lactate - POC 2.31 mmol/L (0.36-0.75); O2 Saturation %Calculated-POC 100.0 % (94-98); PCO2 - POC 35 mmHg (35-48); PO2 - POC 361 mmHg (83-108); POC Comment POST; Potassium - POC 3.7 mmol/L (3.5-5.1); Sodium - POC 142 mmol/L (136-145); Specimen Type - POC Arterial; pH - POC 7.41 (7.35-7.45)
[2024-11-03 12:33] LABS: B.E. - POC -2.7 mmol/L; Glucose - POC 135 mg/dl (70-99); HCO3 - POC 21 mmol/L (21-28); Hematocrit - POC 32 % PCV (42-52); Hemodilution- POC No; Hemoglobin Calculated - POC 11.0; Ionized Calcium - POC 1.10 mmol/L (1.15-1.33); Lactate - POC < 0.30 mmol/L (0.36-0.75); O2 Saturation %Calculated-POC 99.9 % (94-98); PCO2 - POC 33 mmHg (35-48); PO2 - POC 317 mmHg (83-108); Potassium - POC 3.2 mmol/L (3.5-5.1); Sodium - POC 139 mmol/L (136-145); Specimen Type - POC Arterial; pH - POC 7.42 (7.35-7.45)
--- NOTE | 2024-11-03 12:38 | W.IMMPOSTOP ---
Addendum entered and electronically signed by Tay Herrera MD 11/03/24 13:52:
[id number]
Original Note:
Surgical Immed Post Op Note
-
CARDIAC SURGERY OPERATIVE NOTE:
Preoperative Dx:
MVCAD s/p prior RCA PCI/Stenting
NSTEMI
DM
HTN/HLD
GERD
Hyperthyroidism
Uyww-yz-fnuabirh MR
Postoperative Dx:
Same
Procedures:
1) Median sternotomy
2) Takedown of MICKI (narrow pedicle)
3) Endoscopic harvest & prep of RLE GSV
4) Drainage of B/L pleural effusions (~250mL L and 275mm R)
5) CABG x 4 (MICKI to LAD, GSV to D1, GSV to OM1, GSV to RPDA)
6) ELAA (35mm AtriClip)
Surgeon:
Tay Herrera M.D.
Assistants:
Marylou Sanchez-Jenn; plant attendant or assistant operator throughout
Yaneth Turner P.A.-C.; endoscopic harvest/prep of RLE GSV; inuwzu-[id number] sternotomy closure
Anesthesia:
Swapnil Saenz M.D. and Jenn LiR.N.A.
Perfusion:
Tess Don C.C.P.; XC: 85min, CPB: 121min
Findings:
MICKI was a healthy appearing conduit w/ ELD 2.5mm w/ very brisk blood flow
GSV was a healthy appearing conduit w/ ELD 3.0-3.5mm
LAD was visible on the epicardial surface, no sig calcifications at midpoint anastomosis; ELD 2.5mm
D1 was visible on the epicardial surface, moderately dense calcifications, ELD 2.5mm
OM1 was visible on the epicardial surface, scattered calcifications, ELD 3.0mm
RPDA was visible on the epicardial surface, no sig calcifications at proximal anastomosis; ELD 1.5mm
MARY w/ windsock morphology, small; occluded at its base w/ a 35mm AtriClip
Excellent flow in all grafts on postoperative transit-time U/S flow probe assessment
Post-SIDNEY: LVEF 50-55%, normal RV, unchanged mild-to-mod MR
Implants:
AtriClip 35mm
CT x 4 (B/L pleural, inferior mediastinal, superior mediastinal)
Sternal wires x 7
Sternal 'square' plates x 2 w/ 4 - 10mm and 4 - 8mm screws
Complications:
Stable
Transfusions:
None
Condition:
86 sinus (-0.6/-), 103/46, 33/16, CVP 8, CO/CI: 2.99/1.83
GTTS: levophed 12, precedex 0.5, insulin 0.5
Stable/guarded to CVICU
--- NOTE | 2024-11-03 13:20 | PTCARENOTE ---
assumed care of patient @ 1320. recieved pt from CVOR s/p CABG, intubated, sedated on mechanical ventilation. pupils 3, reactive to light. no response to verbal or physical stimuli yet. temp 96.9, kiley hugger applied. NSR 90s with 1st degree and
BBB. BP 110s/60s on 12 of levo. PAPs 40s/20s, CVP ~12. +pp, - edema. Loud rub heard on auscultation. Lungs audible anteriorly, 8.0 ET tube 22 @ lip on SIMV 12, 500, 5/5, 40% satting 100 percent and pulling good volumes. 4 chest tubes present wo wall
suction no air leak, tidaling or crepitus noted. BS hypoactive. Meredith present draining clear yellow urine. MSI with aquacel with scant drainage, marked. R groin and R leg svg harvest SABAS closed with glue. R IJ cordis with swan at 45, L radial A
line, R AC PIV all patent. central lines zeroed, flushed. Index 1.98, CTPA notified, 250 LR given. CA replaced. received on 12 of levo, .5 precedex, insulin per protocol.
[2024-11-03 13:29] LABS: Glucose - Point of Care 125 mg/dl (70-99)
[2024-11-03] MEDS: LR 250 ML IV ×2 (13:38→14:55)
--- NOTE | 2024-11-03 13:42 | W.PN.CARDCBS ---
Addendum entered and electronically signed by Tavo Dodge MD 11/03/24 18:45:
69-year-old man with history of CAD and prior PCI admitted with non-STEMI, now seen status post CABG 11/03/2024.
PMH: CAD and RCA PCI 2019, diabetes, hypertension, hyperlipidemia, GERD
Meds: Reviewed
Currently he is awake, sedated, has been extubated, on norepinephrine at 1 mcg/min and insulin
90/63, pulse 100, respiratory 28, 37.9, sedated, seems comfortable drifts off to sleep, lungs are relatively clear left rub, leg wrapped and seems intact, chest incision intact
Chest x-ray mild vascular congestion, slight blunting in rug hooker hand, [place]
ECG: Sinus rhythm, right bundle branch block, left posterior fascicular block
Hemoglobin 9.8, platelets 189,, BUN/creatinine 15 and 0.8, potassium 4
Impression:
Status post CABG x 4 Julia to LAD, GSV to D1, GSV to OM1, GSV to RPDA, 35mm AtriClip 11/03/24
NSTEMI, peak trop 6.5
CAD
s/p prox RCA PCI 03/29/2019
MV CAD by cath 10/28/24
Acute HFpEF at admission
Suspected PNA
DM2
HLD
HTN
GERD
Plan:
He looks well immediately postop
Appreciate efforts of CT surgery
Continue postoperative care, will continue to follow
Original Note:
Today's Communication / Plan
-
Continue postoperative care
In sinus rhythm
Impression / Plan
-
PCP: Unknown
Marketing Co Op: None locally, follows w/ cardiology in [facility], [place]
Impression:
Presented with epigastric chest pain
NSTEMI, peak trop 6.5
CAD
s/p prox RCA PCI 03/29/2019
MV CAD by cath 10/28/24
Status post CABG x 4 Julia to LAD, GSV to D1, GSV to OM1, GSV to RPDA, EF MARY, drainage of bilateral pleural effusions (to 50 mL on left and to 75 mm on right) 11/03/24
Acute HFpEF
Concern for PNA
DM2
HLD
HTN
GERD
Echo 10/28/2024: EF 50-55%, stage I diastolic dysfunction, basal to mid inferior and inferolateral wall mild hypokinesis, MAC, mild to mod MR, mild TR, estimated PAP 25 mmHg
LHC 10/28/2024: LM: Tubular 40% stenosis with additional distal tapering. LAD: Proximal LAD has a 50% stenosis with diffuse moderate atherosclerotic disease into the mid LAD where a long 60% stenosis is noted. First diagonal branch has a proximal 60%
stenosis with focal 70% stenosis in midportion. LCx: Heavily calcified with a 95% ostial stenosis. OM1 has a 70% narrowing at its origin. OM2 also has a 50% ostial stenosis. RCA: Overlapping stents from proximal to mid RCA are 100% occluded. Distal
vessel is noted to fill via left to right collaterals. 2+ MR.
Plan:
-Presented with epigastric chest pain. Admitted with NSTEMI. Initial troponin 6.59, trending down thereafter. Cath with multivessel CAD.
-Status post CABG x 4 Julia to LAD, GSV to D1, GSV to OM1, GSV to RPDA, EF MARY, drainage of bilateral pleural effusions (to 50 mL on left and to 75 mm on right) 11/03/24
-intubated, sedated
-on levo@8. CI 1.98
-hgb 10.1 this AM. follow postop. for asa, plavix post op
-had temp of 102 over weekend. concern for PNA by initial CXR. received 4 doses of levaquin so far, defer additional abx to pulm. procal 0.05
-continue diuresis post op
-post op EKG improving compared to prior from 11/01. in SR. follow on tele. preop was on toprol 25mg BID
-LDL 51. Continue Crestor 20mg daily.
-Hgb A1c 6.5%. Continue DM management per primary service.
-Discussed with CT surgery POLICE AND FIRE DISPATCHER, nursing
HPI: Owen is a 69 year old male with PMH of CAD w/ prior overlapping stents of the proximal RCA in 2018, DM2, HLD, HTN, and GERD. Presented to [facility] ER for evaluation of epigastric chest discomfort. Pain started a few days ago and he describes it as
a feeling of fullness or needing to belch, but being unable to. Denies any SOB or diaphoresis. Pain centrally located, but does radiate into jaw and L arm at times. Due to persistent pain, he came to ER for evaluation. On arrival, pain continued at
a 5/10 in severity. Labwork revealed elevated troponin of 6.59. EKG with RBBB and significant ST depressions. He was started on IV heparin and given SL nitro and morphine. Pain improved this AM. Repeat troponin trending down, however given h/o CAD
w/ recurrent symptoms concerning for angina, cardiology consulted.
Progress Note - Marketing Co Op
Subjective
Date of Service: November 03, 2024
Intubated, sedated
Objective
Labs:
Labs
Hgb 10.1 g/dL (13.0-18.0) L 11/03/24 04:55
Hct 29.4 % (39.0-52.0) L 11/03/24 04:55
Plt Count 272 10^3/uL (130-400) 11/03/24 04:55
PT 14.8 Sec (11.4-14.6) H 11/02/24 04:01
INR 1.10 11/02/24 04:01
APTT 126.2 Sec (23.4-35.0) H 11/03/24 04:56
Sodium 133 mmol/L (135-145) L 11/03/24 04:55
Potassium 4.0 mmol/L (3.5-5.1) 11/03/24 04:55
BUN 20 mg/dl (9-20) 11/03/24 04:55
Creatinine 1.0 mg/dL (0.7-1.3) 11/03/24 04:55
Glucose 134 mg/dl (70-99) H 11/03/24 04:55
Vital Signs and I&O:
Vital Signs
Temp Pulse Resp BP Pulse Ox
96.9 F L 91 12 100/64 99
11/03/24 13:20 11/03/24 13:30 11/03/24 13:30 11/03/24 05:57 11/03/24 13:30
Vital Signs
Temp Pulse Resp BP Pulse Ox
96.9 F L 91 12 100/64 99
11/03/24 13:20 11/03/24 13:30 11/03/24 13:30 11/03/24 05:57 11/03/24 13:30
Intake & Output
11/01/24 11/02/24 11/03/24 11/04/24
07:59 07:59 07:59 07:59
Intake Total 1070 / 1070 1325 / 1325
Output Total 305 / 305
Balance 1070 / 1070 1325 / 1325 -305 / -305
Physical Exam
Physical Exam
GEN: No distress, intubated, sedated
HEENT: supple, mmm
LUNGS: CTA bilaterally, no wheezes/rales
CV: Reg, S1/S2, 1/6 syst LSB, positive rub
EXT: No cyanosis, clubbing, edema
NEURO: Gross non-focal
SKIN: Warm, pink, dry. No rash. Sternotomy dressing clean dry and intact. Chest tubes in place. Silvano wrap to right lower extremity
[2024-11-03 13:55] LABS: B.E. -2.2 mmol/L; HCO3 22.4 mmol/L (21-28); O2 Saturation % 97.8 % (94-98); PCO2 37 mmHg (35-48); PO2 100 mmHg (83-108); Potassium 4.2 mMOL/L (3.5-5.1); Sodium 134 mMOL/L (136-145)
[2024-11-03 13:56] LABS: INR 1.63; PT 19.6 Sec (11.4-14.6)
[2024-11-03 13:57] LABS: APTT 31.1 Sec (23.4-35.0); Hematocrit 27.0 % (39.0-52.0); Hemoglobin 9.3 g/dL (13.0-18.0); Platelet Count 152 10^3/uL (130-400)
[2024-11-03 14:03] LABS: Glucose - Point of Care 129 mg/dl (70-99)
[2024-11-03] MEDS: CALCIUM GLUCONATE 100 IV (14:07)
[2024-11-03] MEDS: FEOSOL PO (14:08)
[2024-11-03] MEDS: NOVOLOG FLEXPEN SC ×4 (14:08→16:24)
[2024-11-03] MEDS: CYANOCOBALAMIN IM (14:08)
[2024-11-03] MEDS: SINGULAIR PO (14:08)
[2024-11-03 14:09] LABS: Blood Urea Nitrogen 15 mg/dl (9-20); Estimated Creatinine Clearance 74 ml/min; Glucose 114 mg/dl (70-99); Magnesium 2.8 mg/dl (1.6-2.3)
[2024-11-03] MEDS: TYLENOL PO (14:09)
[2024-11-03] MEDS: NSS 500 IV (14:09)
--- NOTE | 2024-11-03 14:30 | PTCARENOTE ---
pt shivering, Demerol given. additional 250 LR given for low index per ctpa.
[2024-11-03] MEDS: NOVOLOG FLEXPEN-LOW RESISTANCE SC ×2 (14:40)
[2024-11-03] MEDS: ASPIR LOW (ENTERIC COATED) PO (14:40)
[2024-11-03] MEDS: MIRALAX PO (14:40)
[2024-11-03] MEDS: MAGNESIUM OXIDE PO (14:40)
[2024-11-03] MEDS: SENOKOT PO (14:41)
[2024-11-03] MEDS: DEMEROL 12.5 MG IV (15:00)
[2024-11-03 15:08] LABS: Glucose - Point of Care 107 mg/dl (70-99)
--- NOTE | 2024-11-03 15:15 | W.PN.UPDATE ---
Update Note
Progress Note Update
Per D/W CTS pt transferred to CTS service. Will sign off.
P,s contact if we need to follow.
TY
--- NOTE | 2024-11-03 15:54 | PTCARENOTE ---
pt spontaneously awoke and is now following commands. CPAP trial initiated at 1545.
[2024-11-03 16:02] LABS: Glucose - Point of Care 109 mg/dl (70-99)
[2024-11-03 16:24] LABS: B.E. -1.3 mmol/L; HCO3 22.4 mmol/L (21-28); O2 Saturation % 98.5 % (94-98); PCO2 33 mmHg (35-48); PO2 118 mmHg (83-108); Potassium 4.1 mMOL/L (3.5-5.1); Sodium 133 mMOL/L (136-145)
[2024-11-03] MEDS: NEURONTIN PO (16:24)
[2024-11-03] MEDS: PACERONE PO (16:24)
[2024-11-03 16:32] LABS: Hematocrit 27.9 % (39.0-52.0); Hemoglobin 9.8 g/dL (13.0-18.0); Platelet Count 189 10^3/uL (130-400)
[2024-11-03 17:01] LABS: Glucose - Point of Care 101 mg/dl (70-99)
[2024-11-03] MEDS: OFIRMEV 100 IV (17:22)
--- NOTE | 2024-11-03 17:25 | PTCARENOTE ---
gas good, extubated at 1645 to 6L NC. able to state full name and .
[2024-11-03] MEDS: LOW STRENGTH ASPIRIN 81 MG PO (18:03)
[2024-11-03] MEDS: CRESTOR PO (18:03)
[2024-11-03 18:16] LABS: Glucose - Point of Care 125 mg/dl (70-99)
[2024-11-03] MEDS: ROXICODONE 5 MG PO (19:02)
[2024-11-03 20:13] LABS: Glucose - Point of Care 107 mg/dl (70-99)
[2024-11-03] MEDS: FEOSOL 325 MG PO (20:14)
[2024-11-03] MEDS: ANCEF 5 IV (20:14)
[2024-11-03] MEDS: SENOKOT-S 1 TABLET PO (20:14)
[2024-11-03] MEDS: FLOMAX PO (20:15)
--- NOTE | 2024-11-03 20:23 | PTCARENOTE ---
Assumed care of patient at 1900. Patient found resting in bed at time of assessment with spouse at bedside. Patient is AOx4, follows commands appropriately, moves all extremities. Lung sounds are clear and equal bilaterally, respirations are
shallow, IS 500, saO2 100% on 4L. Heart sounds are audible, there is a rub present on auscultation, patient is ST w/BBB on the monitor. Patient has normal palpable radial pulses, normal palpable L DP pulse, and normal palpable R PT pulse. No edema
observed. Patient has hypoactive BS in all four quadrants and rivero draining clear yellow urine. There is a sternal incision with aquacell dressing that has scant amount of drainage present, R groin puncture approx with surg adhesive SABAS, and RLE
incision with PARKER wrap that is CDI. Patient has R IJ cordis with swan @45cm, L radial ricki, and R wrist PIV. Patient on the following gtts: Cordis/VIP KVO, Insulin col 2, and Levo @4. Patient given Tricia 2.5 at change of shift for discomfort in
sternum on reassessment no discomfort reported. VSS. Call park within reach.
[2024-11-03] MEDS: LEVOPHED 250 IV (20:32)
[2024-11-03] MEDS: PACERONE 200 MG PO (21:39)
[2024-11-03] MEDS: NEURONTIN 100 MG PO (21:39)
[2024-11-03] MEDS: DILAUDID 0.25 MG IV (21:40)
[2024-11-03] MEDS: TYLENOL 1000 MG PO (21:40)
[2024-11-03 22:15] LABS: Glucose - Point of Care 110 mg/dl (70-99)
[2024-11-03 23:58] LABS: Glucose - Point of Care 94 mg/dl (70-99)
[2024-11-04] VITALS (28 sets, daily range): BP systolic 101–121; BP diastolic 61–93; PULSE 94; O2SAT 100; BMI 23.1
--- NOTE | 2024-11-04 00:17 | PTCARENOTE ---
Patient reassessed. Attempted to begin tapering levo. Lowered to 3 and 20 mins later patient became hypotensive MAP 58. Levo increased to 5 for now. Low UOP noted CT REHABILITATION CONSULTANT aware. Patient c/o moderate pain unrelieved by oral analgesia 1xdose 0.25
dilaudid. Insulin gtt remains in col 2. No complaints at this time. Remains SR/ST BBB on the monitor. Call park within reach.
[2024-11-04 02:29] LABS: Glucose - Point of Care 142 mg/dl (70-99)
[2024-11-04] MEDS: ROXICODONE 5 MG PO ×4 (03:11→19:45)
[2024-11-04] MEDS: ANCEF 5 IV ×2 (03:12→11:58)
[2024-11-04 03:26] LABS: Hematocrit 27.8 % (39.0-52.0); Hemoglobin 9.6 g/dL (13.0-18.0); Mean Corp Hgb Conc. 34.5 g/dL (33.0-37.0); Mean Corpuscular Volume 86.1 fL (80.0-94.0); Platelet Count 228 10^3/uL (130-400); Red Cell Dist. Width 13.6 % (11.5-14.5)
[2024-11-04 03:37] LABS: Blood Urea Nitrogen 17 mg/dl (9-20); Calcium 8.3 mg/dl (8.4-10.2); Carbon Dioxide 20 mmol/L (22-30); Chloride 104 mmol/L (98-107); Estimated Creatinine Clearance 66 ml/min; Glucose 151 mg/dl (70-99); Magnesium 2.3 mg/dl (1.6-2.3); Potassium 4.3 mmol/L (3.5-5.1); Sodium 133 mmol/L (135-145); eGFR > 60.00
[2024-11-04] MEDS: DILAUDID 0.25 MG IV ×2 (04:05→21:22)
[2024-11-04] MEDS: LR 250 ML IV (04:06)
[2024-11-04 04:26] LABS: Glucose - Point of Care 117 mg/dl (70-99)
--- NOTE | 2024-11-04 04:28 | W.PN.CT ---
Today's Communication / Plan
-
pod #1
- Hold beta-marianela while on Levophed
- continue ASA/Plavix
- Add Midodrine to aid in weaning Levophed
- DC mediastinal chest tubes today
- resume MFM 500mg BID when tolerating solid foods
- case management to mims SGLT2i
Assessment / Plan
-
s/p CABG x 4 (MICKI to LAD, GSV to D1, GSV to OM1, GSV to RPDA), ELAA (35mm AtriClip), Drainage of B/L pleural effusions (~250mL L and 275mm R) by Dr Tay Herrera-pod#1
SIDNEY: EF 50-55%, mild-mod MR ,tr AI/TR
-Severe 3v CAD/40% LM
-NSTEMI (peak trop 6.590)
-Hx CAD S/P PCI with stent x 2 to RCA, 03/29/2019
-Recent fever, suspected b/l RUL pneumonia (on empiric Levaquin, PCN allergy)
-T2DM (hgb A1C 6.5)
-HLD
-HTN
-GERD
-BPH (on Flomax)
-Former tobacco use (quit 1989)
-Diabetes mellitus (A1C 6.5)
-Hyperthyroidism
-Iron/B12 deficiency anemia
- Acute postop respiratory insufficiency (extubated to 6L NC)
- Acute postop blood loss on chronic anemia (expected s/p cardiac surgery)
- Acute postop hyponatremia (Na+ 133)
- Acute postop hypovolemia
Discussed patient care with: Cardiology, Nursing and Respiratory Therapy
Subjective
Procedure
s/p CABG x 4 (MICKI to LAD, GSV to D1, GSV to OM1, GSV to RPDA), ELAA (35mm AtriClip), Drainage of B/L pleural effusions (~250mL L and 275mm R) by Dr Tay Herrera-pod#1
- LR 250cc @ 0300 for marginal UO
-
Date of Service: November 04, 2024
Objective Data
-
Lab Results
11/04/24 03:04
11/04/24 03:04
PT 19.6 Sec (11.4-14.6) H 11/03/24 13:29
INR 1.63 11/03/24 13:29
APTT 31.1 Sec (23.4-35.0) 11/03/24 13:29
Vital Signs
Vital Signs
Temp Pulse Resp BP Pulse Ox
99.4 F 103 20 115/76 99
11/04/24 03:59 11/04/24 03:20 11/04/24 03:59 11/04/24 03:00 11/04/24 03:[address] Intake/Output/Weight
11/03/24 11/03/24 11/04/24
06:59 18:59 06:59
Intake Total 671.1 / 1041.3 370.2 / 1041.3
Output Total 1300 / 1740 440 / 1740
Balance -628.9 / -698.7 -69.8 / -698.7
SaO2: 99
Physical Exam
-
General: AOx3
Cardiovascular: Regular rate & rhythm
Respiratory: Clear and Other (2 mediastinal and R/L pleural chest tubes w/serosanguinous drainage; no air leak)
Sternum: Stable
Incision: Clean, Dry and Intact
Extremities: No Edema and Other (RLE PARKER intact; left radial ricki; RIJ w/[place])
Data Reviewed
-
Lab Results: Results Reviewed
Medications: Active Meds Reviewed
Chest X-Ray: Report Reviewed and Image Reviewed
ECG: Report Reviewed and Image Reviewed
--- NOTE | 2024-11-04 05:05 | PTCARENOTE ---
Patient reassessed. Pain management with 0.5 Tricia and 0.25 dilaudid. Low UOP continues. CT MAGNETIC PROSPECTOR ordered additional 250 LR. Levo tapered to off. AM hygiene care provided. Remains SR with BBB. Call park within reach.
[2024-11-04 06:20] LABS: Glucose - Point of Care 88 mg/dl (70-99)
[2024-11-04] MEDS: FLEXERIL 5 MG PO (06:29)
[2024-11-04] MEDS: TYLENOL 1000 MG PO ×3 (06:29→21:33)
[2024-11-04] MEDS: DILAUDID 0.5 MG IV (06:35)
--- NOTE | 2024-11-04 06:57 | W.PN.ANS.POP ---
Anesthesia Post Operative
- Anesthesia Post Op Note
Vital Signs Stable-See Nursing Note: Yes
Airway Patent: Yes
Adequate Pain Control: Yes
Change in Mental Status: No
Current Postoperative Nausea & Vomiting: No
Anesthesia Complications: No
General Anesthetic Recall: No
Unplanned Admission: No
Post Op Hydration Adequate: Yes
--- NOTE | 2024-11-04 07:39 | PTCARENOTE ---
assumed care of patient @ 0700. received pt laying in bed, Aox3. slightly anxious at baseline. SR/ST 90s-low 100s with BBB. loud rub heard on auscultation. good pulses, no edema. BP stable. Lungs clear taking very shallow breaths. Deep breathing
encouraged. on 2L satting 98 percent. IS 500, encouraged use. BS hypoactive, no n/v. rivero present draining clear yellow urine. Sternal aquacel with scant old drainage, R groin and R knee SVG sites CDI. R IJ cordis, R wrist PIV. on insulin per
protocol. assisted pt to stand to scale and then to chair with steady gait. BP stable post. pt now resting in chair with call park within reach, son at bedside.
[2024-11-04 08:04] LABS: Glucose - Point of Care 133 mg/dl (70-99)
[2024-11-04] MEDS: NOVOLOG FLEXPEN SC (08:06)
[2024-11-04] MEDS: SINGULAIR 10 MG PO (08:16)
[2024-11-04] MEDS: NEURONTIN 100 MG PO ×3 (08:18→21:33)
[2024-11-04] MEDS: MAGNESIUM OXIDE 500 MG PO ×2 (08:18→19:46)
[2024-11-04] MEDS: SENOKOT-S 1 TABLET PO ×2 (08:19→19:46)
[2024-11-04] MEDS: LOW STRENGTH ASPIRIN 81 MG PO (08:19)
[2024-11-04] MEDS: PROTONIX 40 MG PO (08:19)
[2024-11-04] MEDS: FEOSOL 325 MG PO ×2 (08:19→19:45)
[2024-11-04] MEDS: PLAVIX 75 MG PO (08:19)
[2024-11-04] MEDS: PACERONE 200 MG PO ×3 (08:20→21:33)
[2024-11-04] MEDS: LIDOCAINE 4% PATCH 1 PATCH TOPICAL (08:24)
[2024-11-04] MEDS: BACTROBAN 2% OINTMENT 1 APPLIC NASAL ×2 (08:24→19:46)
[2024-11-04] MEDS: CYANOCOBALAMIN IM (08:50)
[2024-11-04 09:58] LABS: Glucose - Point of Care 144 mg/dl (70-99)
[2024-11-04] MEDS: VITAMIN B-12 1000 MCG PO (10:04)
--- NOTE | 2024-11-04 11:26 | W.PN.INTV ---
Today's Communication / Plan
Recommendations
Extubated and doing well
Titrated off pressors
Insulin protocol, transition to SQ per team
OOB to chair, encouraged IS
Pain control
Further postop management per team
Assessment
-
69-year-old male with past medical history of coronary artery disease, type 2 diabetes who came with epigastric pain on 10/28/2024. Found to have positive troponin, abnormal EKG. Subsequent cardiac catheterization demonstrated triple-vessel
coronary artery disease. CT of the chest on admission demonstrated bilateral infiltrates. He is planned to get coronary artery bypass during this admission. We were consulted for evaluation of infiltrates.
CAD s/p CABG x 4 (MICKI to LAD, GSV to D1, GSV to OM1, GSV to RPDA) 11/03/24
Periop intubation, MV
Abnormal CT chest-bilateral infiltrates with bilateral small pleural effusions.
Fever
Leukocytosis-stress reaction-rapidly recovered.
Non-ST elevation myocardial infarction
Increased proBNP in the 3999's.
Anemia-iron deficiency/B12 deficiency
Snoring
Conditions present prior admission:
Type 2 diabetes
Fatty liver
GERD
BPH
Coronary artery disease status post stents 2019
Chronic insomnia
Enlarged prostate
Former smoker
Plan
S/p CABD x 4 POD #1
Titrating off pressors per protocol
ECHO reviewed with normal function
Management of chest tubes per primary service
Pain control
RASS goal of 0 to -1
Intubated for procedure, extubated and doing well
ABG(s) reviewed/adequate
CXR with stable postop changes
Extubated per protocol
Maintain supplement oxygen as needed
No prior history of pulmonary disease--effusions noted on imaging
Suspect pulmonary changes are more related to acute coronary syndrome/pulmonary edema-small bilateral pleural effusion, increased proBNP, upper lobe predominant infiltrates.
Patient did have some fever for 24 hours but rapidly resolved, initially with leukocytosis but rapidly resolved-? Related to acute coronary syndrome.
Currently on Levaquin day 4-will obtain procalcitonin-if negative for minimally elevated will complete only 5 days of antibiotics.
No prior PFTs for review
Can add nebulizers if needed
Aspiration precautions
Encouraged incentive spirometry, OOB/ambulation/early mobility
Advance diet as tolerated following extubation
GI prophylaxis if indicated for mechanical ventilation >48 hours
Monitor critical I/O's
Meredith/chest tube output
Hb/platelets postoperatively stable
Trend CBC for now
Can transfuse if indicated for Hb <7, plt <50 in surgical patients
DVT prophylaxis including SCDs
Insulin protocol initiated and ongoing
Transition to SQ/off as indicated per team
Radiographic follow-up will be needed in the outpatient setting-discussed with patient. He is a former smoker.
Snoring: Discussed with patient possibility of obstructive sleep apnea. was present and she agrees.
Information will be left in the chart for follow-up in the outpatient setting.
We will follow
Data Reviewed:
CXR 11/03/24- Postoperative tubes/lines. Improved mild pulmonary interstitial edema.
CT chest: 10/28/2024: Small bilateral pleural effusions with compressive atelectasis. Patchy consolidation within the posterior aspects of bilateral upper lobes, right greater than left. Severe coronary artery calcifications.
Echo 10/28/2024: EF 50-55% by Alonso's method of discs. Basal to mid inferior and inferolateral wall mild hypokinesis. Mitral annular calcification. Mild to moderate mitral regurgitation.
Mild tricuspid regurgitation. Estimated pulmonary artery pressure of 25 mmHg
Cardiac catheterization 10/28/2024:
1. Multivessel coronary artery disease with chronic total occlusion of the proximal to mid RCA throughout the entire stented segment. The distal vessel is noted to fill via [id number] collaterals. There is a heavily calcified high-grade ostial
stenosis as the circumflex arises at an acute angle from the left main. The LAD is calcified with diffuse luminal irregularities and focal 60-70% mid stenosis. Branch vessel disease is noted at the origin of the diagonal branch, OM1, OM 2.
2. Low normal to mildly reduced LVEF estimated at 45-50% with basal inferolateral hypokinesis
Critical Care time 31 mins -- The patient is admitted for acute critical illness for the treatment of vital organ failure and/or prevention of further life-threatening conditions. Total care includes time spent in review of history, physical exam,
medications, hemodynamic/ventilator parameters, laboratory data, imaging and discussion with house staff, pharmacy, respiratory therapy, delinquency prevention officer, and nursing.
Subjective Dataa
Subjective Data
Date of Service:
Date of Service: November 04, 2024
Chief Complaint: Pharmacy Sales Assistant Follow Up
Subjective:
Extubated and doing well, sitting in chair
Pain complaints
Objective Data
Data Reviewed
Vital Signs / I&O / Oxygen:
Vital Signs
Temp Pulse Resp BP Pulse Ox
99.0 F 95 22 106/64 100
11/04/24 08:00 11/04/24 11:00 11/04/24 11:00 11/04/24 11:00 11/04/24 11:00
Intake and Output
11/03/24 11/04/24 11/05/24
06:59 06:59 06:59
Intake Total 1325 / 1325 1335.9 / 1356.3 591.6 / 591.6
Output Total 1854 270 / 270
Balance 1325 / 1325 -519.1 / -638.7 321.6 / 321.6
SaO2 [CPAP] 100
SaO2 [SIMV] 0
SaO2 100
Nasal Cannula flow liters per 2
minute
Physical Exam
General: Comfortable and Other (NAD)
HEENT: Normocephalic, Anicteric and Moist Mucous Membranes
Cardiovascular: S1-S2 and Regular Rhythm
Respiratory: Clear, Non-Labored Respirations and Chest Tube
GI: Soft, Non Distended and Non Tender
Neurology: Awake, Alert, Oriented and No Motor Deficits
Skin: Warm, Dry and Good Color
Labs/Micro/Reports
Lab Data
11/04/24 03:04
11/04/24 03:04
Laboratory Results
11/03/24 11/03/24
13:29 16:16
PT 19.6 H
INR 1.63
APTT 31.1
pH 7.39 7.44
pCO2 37 33 L
pO2 100 118 H
HCO3 22.4 22.4
O2 Delivery Level
Microbiology
11/03/24 06:51 Urine Urine Culture - Final
NO GROWTH
10/29/24 21:43 Blood/Venous Blood Culture - Final
No Growth - Final Report
10/29/24 21:14 Blood/Venous Blood Culture - Final
No Growth - Final Report
11/01/24 19:52 Sputum Respiratory Culture - Preliminary
Usual Respiratory Miranda
11/01/24 19:52 Sputum Gram Stain - Preliminary
[2024-11-04] MEDS: FLEXBUMIN 50 IV ×2 (11:57→14:53)
--- NOTE | 2024-11-04 12:00 | PTCARENOTE ---
pt remains OOB to chair. resting comfortably with call park within reach .
[2024-11-04 12:04] LABS: Glucose - Point of Care 95 mg/dl (70-99)
--- NOTE | 2024-11-04 12:33 | CM ---
pricing on [employer] and [employer]- pt does not have any perscript plan- requesting generic meds only.
--- NOTE | 2024-11-04 13:14 | W.PN.CARDCBS ---
Addendum entered and electronically signed by Tavo Rey MD 11/04/24 14:21:
Attending addendum: Patient seen and examined. PA note reviewed and findings confirmed. Slowly improving post CABG and feeling well. Hemodynamically stable. Will follow
Original Note:
Today's Communication / Plan
-
continue post op care
in SR
Impression / Plan
-
PCP: Unknown
Pcu Rn: None locally, follows w/ cardiology in [facility]
Impression:
Presented with epigastric chest pain
NSTEMI, peak trop 6.5
CAD
s/p prox RCA PCI 03/29/2019
MV CAD by cath 10/28/24
Status post CABG x 4 Julia to LAD, GSV to D1, GSV to OM1, GSV to RPDA, EF MARY, drainage of bilateral pleural effusions (to 50 mL on left and to 75 mm on right) 11/03/24
Acute HFpEF
Concern for PNA
DM2
HLD
HTN
GERD
Echo 10/28/2024: EF 50-55%, stage I diastolic dysfunction, basal to mid inferior and inferolateral wall mild hypokinesis, MAC, mild to mod MR, mild TR, estimated PAP 25 mmHg
LHC 10/28/2024: LM: Tubular 40% stenosis with additional distal tapering. LAD: Proximal LAD has a 50% stenosis with diffuse moderate atherosclerotic disease into the mid LAD where a long 60% stenosis is noted. First diagonal branch has a proximal 60%
stenosis with focal 70% stenosis in midportion. LCx: Heavily calcified with a 95% ostial stenosis. OM1 has a 70% narrowing at its origin. OM2 also has a 50% ostial stenosis. RCA: Overlapping stents from proximal to mid RCA are 100% occluded. Distal
vessel is noted to fill via left to right collaterals. 2+ MR.
Plan:
-Presented with epigastric chest pain. Admitted with NSTEMI. Initial troponin 6.59, trending down thereafter. Cath with multivessel CAD.
-Status post CABG x 4 Julia to LAD, GSV to D1, GSV to OM1, GSV to RPDA, EF MARY, drainage of bilateral pleural effusions (to 50 mL on left and to 75 mm on right) 11/03/24
-off pressors. on midodrine 10mg TID
-in SR on review of EKG 11/04 and tele. preop was on toprol 25mg BID. currently on amiodarone, lopressor on hold due to hypotension, resume as able
-hgb 9.6. continue asa, plavix
-continue diuresis post op
-LDL 51. Continue Crestor 20mg daily.
-Hgb A1c 6.5%. Continue DM management per primary service.
-had temp of 102 over weekend. concern for PNA by initial CXR. received levaquin, defer additional abx to pulm. procal 0.05 on 11/03
-continue post op care, OOB/IS
-d/w nursing
HPI: Owen is a 69 year old male with PMH of CAD w/ prior overlapping stents of the proximal RCA in 2019, DM2, HLD, HTN, and GERD. Presented to [facility] ER for evaluation of epigastric chest discomfort. Pain started a few days ago and he describes it as
a feeling of fullness or needing to belch, but being unable to. Denies any SOB or diaphoresis. Pain centrally located, but does radiate into jaw and L arm at times. Due to persistent pain, he came to ER for evaluation. On arrival, pain continued at
a 5/10 in severity. Labwork revealed elevated troponin of 6.59. EKG with RBBB and significant ST depressions. He was started on IV heparin and given SL nitro and morphine. Pain improved this AM. Repeat troponin trending down, however given h/o CAD
w/ recurrent symptoms concerning for angina, cardiology consulted.
Progress Note - Pcu Rn
Subjective
Date of Service: November 04, 2024
doing well. states pain adequately controlled with meds
Objective
Labs:
11/04/24 03:04
11/04/24 03:04
Labs
Hgb 9.6 g/dL (13.0-18.0) L 11/04/24 03:04
Hct 27.8 % (39.0-52.0) L 11/04/24 03:04
Plt Count 228 10^3/uL (130-400) D 11/04/24 03:04
PT 19.6 Sec (11.4-14.6) H 11/03/24 13:29
INR 1.63 11/03/24 13:29
APTT 31.1 Sec (23.4-35.0) 11/03/24 13:29
Sodium 133 mmol/L (135-145) L 11/04/24 03:04
Potassium 4.3 mmol/L (3.5-5.1) 11/04/24 03:04
BUN 17 mg/dl (9-20) 11/04/24 03:04
Creatinine 0.9 mg/dL (0.7-1.3) 11/04/24 03:04
Glucose 151 mg/dl (70-99) H 11/04/24 03:04
Vital Signs and I&O:
Vital Signs
Temp Pulse Resp BP Pulse Ox
97.8 F 91 22 101/64 98
11/04/24 12:00 11/04/24 13:00 11/04/24 13:00 11/04/24 13:00 11/04/24 13:00
Vital Signs
Temp Pulse Resp BP Pulse Ox
97.8 F 91 22 101/64 98
11/04/24 12:00 11/04/24 13:00 11/04/24 13:00 11/04/24 13:00 11/04/24 13:00
Intake & Output
11/02/24 11/03/24 11/04/24 11/05/24
07:59 07:59 07:59 07:59
Intake Total 1325 / 1325 1356.3 / 1378.9 612.8 / 612.8
Output Total 1994 155 / 155
Balance 1325 / 1325 -638.7 / -651.1 457.8 / 457.8
Physical Exam
Physical Exam
GEN: No distress, awake, alert, oriented x3. on supp O2. sitting in chair
HEENT: supple, anicteric, mmm, eomi
LUNGS: CTA B/L, no wheezes/rales
CV: Reg, S1/S2, no murmur
EXT: No cyanosis, clubbing. trace edema of B/L LE
NEURO: Gross non-focal
SKIN: Warm, pink, dry. No rash. CTs in place
[2024-11-04 13:35] LABS: Glucose - Point of Care 92 mg/dl (70-99)
[2024-11-04] MEDS: NOVOLOG FLEXPEN 4 UNITS SC ×2 (13:36→19:35)
--- NOTE | 2024-11-04 14:02 | PN.DE.MGMTRT ---
Insulin Management
- -
11/04/2024 Diabetes Management Consult
Patient admitted 10/28 with PC NSTEMI - CABG 11/03. PMH CAD, stents in [facility], diabetes. Prior to admission was taking metformin 500 mg BID. A1C on admission 6.5%, cr .9, eGFR > 60.
Patient is awake alert and oriented oob in chair able to discuss diabetes care. He has had diabetes since 1998, started metformin 2015. Has glucose monitor and follows with primary doctor for diabetes care.
POD 1 s/p CABG x 4. Currently receiving critical care glycemic protocol insulin infusion. Will continue until POD 2. Discussed with CV team, patient to resume metformin in AM and stop insulin infusion after lunch.
Discussed with nurse.
Will follow
Diabetes History
- -
Type of Diabetes: 2
Pre-Admission Diabetes Regimen
11/03/24 11/04/24
13:29 03:04
Creatinine 0.8 0.9
Lab Results
Hemoglobin A1c 6.5 % (4.0-5.6) H 10/28/24 01:56
Insulin Pump Settings
IP Diabetes Regimen
11/03/24 11/03/24 11/03/24
13:29 14:01 15:07
Glucose 114 H
POC Glucose 129 H 107 H
11/03/24 11/03/24 11/03/24
15:57 16:59 18:06
Glucose
POC Glucose 109 H 101 H 125 H
11/03/24 11/03/24 11/03/24
20:09 22:14 23:56
Glucose
POC Glucose 107 H 110 H 94
11/04/24 11/04/24 11/04/24
02:21 03:04 04:23
Glucose 151 H
POC Glucose 142 H 117 H
11/04/24 11/04/24 11/04/24
06:12 08:03 09:57
Glucose
POC Glucose 88 133 H 144 H
11/04/24 11/04/24
12:02 13:33
Glucose
POC Glucose 95 92
Patient Education
[2024-11-04] MEDS: LASIX 20 MG IV (14:54)
--- NOTE | 2024-11-04 15:00 | PTCARENOTE ---
Handoff report received from Gustavo DAVIS. Pt OOB in chair. AOx4, NSR/ST BBB 90s-100s on tele, +rub, SBP 100s-110s, +2 radial pulses, +1 DP pulses. Trace edema BUE, 2L NC satting 100%, O2 weaned to 1L NC. Pt states having sternal pain, however is
'better after pain meds.' Insulin gtt infusing per protocol through PIV. NSS KVO infusing through R IJ cordis. Chest tubes x4 -20sx with no crepitus or airleak noted at this time. Meredith in place and draining clear yellow urine. I/Os charted. Sternum
covered with aquacel with scant drainage present. R groin CDI, R Knee with PARKER bandage, CDI. L radial A line site dressing CDI. IS encouraged, patient achieves about 500. All needs met at this time, call park within reach.
--- NOTE | 2024-11-04 16:00 | CM ---
dc plans remain home with when medically stable and a f/u visit form the ct transitional care nurse.
[2024-11-04 16:03] LABS: Glucose - Point of Care 213 mg/dl (70-99)
--- NOTE | 2024-11-04 16:07 | PTCARENOTE ---
report given to oncoming nurse, pt still resting comfortably in chair .
[2024-11-04 17:10] LABS: Glucose - Point of Care 143 mg/dl (70-99)
[2024-11-04] MEDS: NOVOLIN R INSULIN INFUSION 100 IV (17:14)
[2024-11-04] MEDS: CRESTOR 20 MG PO (18:04)
--- NOTE | 2024-11-04 19:00 | PTCARENOTE ---
Patient OOB in chair. Family at bedside. PARKER bandage removed from RLE. Insulin gtt infusing per order. Patient has not eaten dinner yet, 1630 humolog held until patient eats dinner, passed on to nightsiaft in report. VSS at this time. All needs met,
call park within reach. Handoff report given to nightshift RN.
[2024-11-04 19:15] LABS: Glucose - Point of Care 167 mg/dl (70-99)
[2024-11-04] MEDS: NSS IV (19:45)
[2024-11-04] MEDS: REMOVE LIDOCAINE PATCH 1 PATCH REMOVE (19:46)
--- NOTE | 2024-11-04 20:00 | PTCARENOTE ---
Report received from RYAN Blair. VS done. Assessment completed. Pt sitting in chair. Awake, alert, oriented x 4. Multiple family members present. Pt c/o 10/13 mid-upper back pain. Roxicodone 5 mg po given. Pt on room air. Sats 98%. BBS present.
Decreased B basilarly, posterior lung hercules. Shallow breathing at times due to pain. CT x 4 all to -20 cm suction. Se flowsheets. Audible heart tones. + pericardial rub. BP normotensive. Q1hr VS. For pulse and wound assessments, see flowsheets.
Belly soft, nontender. Hypoactive bs x 4. Family brings his meals. Eats >90%. Glycemic protocol and sliding scale coverage. See MAR. Meredith to drain, clear, yellow urine. Refused CHG bath for now. Ongoing plan of care.
[2024-11-04] MEDS: FLOMAX PO (20:18)
--- NOTE | 2024-11-04 22:00 | PTCARENOTE ---
Pt coughing during breathing exercises. C/O 10/13 sternal pain. Dilaudid 0.25 mg IV given at 2121. Pt then helped back to bed. 1L/NC/O2 applied while pt in bed. Sats 100%. Continues to refuse CHG bath. Family home for evening. Glycemic protocol
maintained.
[2024-11-04 22:06] LABS: Glucose - Point of Care 178 mg/dl (70-99)
[2024-11-04 23:02] LABS: Glucose - Point of Care 132 mg/dl (70-99)
[2024-11-05] VITALS (29 sets, daily range): BP systolic 101–134; BP diastolic 59–110; PULSE 102; O2SAT 98–100; BMI 23.7
[2024-11-05] MEDS: FLEXERIL 5 MG PO (00:59)
--- NOTE | 2024-11-05 01:05 | PTCARENOTE ---
Flexeril 5 mg po given for c/o sternal pain. Glycemic protocol followed. Remains in SR, rate 80's-90's. On 1L/NC. Sats 98%.
--- NOTE | 2024-11-05 01:11 | W.PN.CT ---
Addendum entered and electronically signed by Tay Herrera MD 11/05/24 09:35:
I saw and examined the patient.
The PA's note was reviewed and I agree with the note.
Comment:
SUAREZ [id number]: POD#2 s/p CABG x 4, ELAA
No major overnight events. AVSS. Minor worsening leukocytosis - 16.4 from 14.1. RA
- D/C CTs
- CXR w/ minor pulmonary edema, no effusions, no PTX
- ? RUL PNA preop - resume Levaquin for now - doubt PNA, but will treat empirically
- Diuresis today
- Metoprolol 12.5mg BID today
- Continue midodrine
- Follow hgb, transfuse if necessary for pressure support
Original Note:
Today's Communication / Plan
-
- Off Levophed now on midodrine, mild tachycardia to low 100s, may restart BB today
- continue ASA/Plavix
- CTs 2Pl 0/195 cc 2M 15/55 cc out in 12/24 hrs
- s/p 20 lasix, UOP 265/650 cc in 12/24 hrs
- continue Crestor, amio, asa, BB held, mag ox, Plavix, midodrine 10 mg TID
- Continue Flomax, iron, APAP, gabapentin, lidocaine patch, PPI
- resumed metformin
- case management to mims SGLT2i
Assessment / Plan
-
s/p CABG x 4 (MICKI to LAD, GSV to D1, GSV to OM1, GSV to RPDA), ELAA (35mm AtriClip), Drainage of B/L pleural effusions (~250mL L and 275mm R) by Dr Tay Herrera-pod#2
SIDNEY: EF 50-55%, mild-mod MR ,tr AI/TR
-Severe 3v CAD/40% LM
-NSTEMI (peak trop 6.590)
-Hx CAD S/P PCI with stent x 2 to RCA, 03/29/2019
-Recent fever, suspected b/l RUL pneumonia (on empiric Levaquin, PCN allergy)
-T2DM (hgb A1C 6.5)
-HLD
-HTN
-GERD
-BPH (on Flomax)
-Former tobacco use (quit 1989)
-Diabetes mellitus (A1C 6.5)
-Hyperthyroidism
-Iron/B12 deficiency anemia
- Acute postop respiratory insufficiency (extubated to 6L NC)
- Acute postop blood loss on chronic anemia (expected s/p cardiac surgery)
- Acute postop hyponatremia (Na+ 133)
- Acute postop hypovolemia
Subjective
Procedure
s/p CABG x 4 (MICKI to LAD, GSV to D1, GSV to OM1, GSV to RPDA), ELAA (35mm AtriClip), Drainage of B/L pleural effusions (~250mL L and 275mm R)
-
Date of Service: November 05, 2024
Objective Data
-
PT 19.6 Sec (11.4-14.6) H 11/03/24 13:29
INR 1.63 11/03/24 13:29
APTT 31.1 Sec (23.4-35.0) 11/03/24 13:29
Vital Signs
Vital Signs
Temp Pulse Resp BP Pulse Ox
98 F 89 24 104/67 100
11/04/24 20:00 11/04/24 23:00 11/04/24 23:00 11/04/24 23:00 11/04/24 23:00
CT Intake/Output/Weight
11/04/24 11/04/24 11/05/24
06:59 18:59 06:59
Intake Total 664.8 / 1356.3 714.0 / 782.6 68.6 / 782.6
Output Total 1994 620 / 760 140 / 760
Balance 109.8 / -638.7 94.0 / 22.6 -71.4 / 22.6
SaO2: 100
Physical Exam
-
General: Awake, Oriented and AOx3
Cardiovascular: Regular rate & rhythm, No Murmurs and No Rub
Respiratory: Clear and Equal
Sternum: Stable
Incision: Clean, Dry and Intact
Extremities: No Edema and No Erythema
Data Reviewed
-
Lab Results: Results Reviewed
Medications: Active Meds Reviewed
Chest X-Ray: Report Reviewed and Image Reviewed
ECG: Report Reviewed
[2024-11-05 01:13] LABS: Glucose - Point of Care 90 mg/dl (70-99)
[2024-11-05 03:26] LABS: Glucose - Point of Care 116 mg/dl (70-99)
[2024-11-05] MEDS: ROXICODONE 5 MG PO ×2 (03:39→14:20)
[2024-11-05 05:33] LABS: Glucose - Point of Care 93 mg/dl (70-99)
[2024-11-05] MEDS: DILAUDID 0.5 MG IV ×2 (05:39→10:26)
[2024-11-05] MEDS: TYLENOL 1000 MG PO ×3 (05:45→21:36)
[2024-11-05 06:00] LABS: Hematocrit 23.8 % (39.0-52.0); Hemoglobin 8.1 g/dL (13.0-18.0); Mean Corp Hgb Conc. 34.0 g/dL (33.0-37.0); Mean Corpuscular Volume 87.8 fL (80.0-94.0); Platelet Count 185 10^3/uL (130-400); Red Cell Dist. Width 13.9 % (11.5-14.5)
[2024-11-05 06:13] LABS: Blood Urea Nitrogen 23 mg/dl (9-20); Calcium 8.3 mg/dl (8.4-10.2); Carbon Dioxide 24 mmol/L (22-30); Chloride 101 mmol/L (98-107); Estimated Creatinine Clearance 66 ml/min; Glucose 85 mg/dl (70-99); Magnesium 2.3 mg/dl (1.6-2.3); Potassium 4.2 mmol/L (3.5-5.1); Sodium 131 mmol/L (135-145); eGFR > 60.00
--- NOTE | 2024-11-05 06:30 | PTCARENOTE ---
Labs drawn and sent. CXR done. Pt given CHG bath. Midodrine given early, talked with MARTÍN Odell. Pt helped to sitting, then standing. C/O some dizziness yet BP normotensive. See VS. Weighed and helped to chair.
[2024-11-05 07:11] LABS: Glucose - Point of Care 140 mg/dl (70-99)
--- NOTE | 2024-11-05 07:34 | W.PN.INTV ---
Today's Communication / Plan
Recommendations
Doing well, off pressors
Remains on insulin to be transitioned to SQ per team
OOB, PT/IS, pain control
Chest tube discontinuation per team
Can likely transfer to tele once off gtts, we will sign off upon transfer
Assessment
-
69-year-old male with past medical history of coronary artery disease, type 2 diabetes who came with epigastric pain on 10/28/2024. Found to have positive troponin, abnormal EKG. Subsequent cardiac catheterization demonstrated triple-vessel
coronary artery disease. CT of the chest on admission demonstrated bilateral infiltrates. He is planned to get coronary artery bypass during this admission. We were consulted for evaluation of infiltrates.
CAD s/p CABG x 4 (MICKI to LAD, GSV to D1, GSV to OM1, GSV to RPDA) 11/03/24
Periop intubation, MV
Abnormal CT chest-bilateral infiltrates with bilateral small pleural effusions.
Fever
Leukocytosis-stress reaction-rapidly recovered.
Non-ST elevation myocardial infarction
Increased proBNP in the 3999's.
Anemia-iron deficiency/B12 deficiency
Snoring
Conditions present prior admission:
Type 2 diabetes
Fatty liver
GERD
BPH
Coronary artery disease status post stents 2018
Chronic insomnia
Enlarged prostate
Former smoker
Plan
S/p CABD x 4 POD #2
Titrated off pressors per protocol
ECHO reviewed with normal function
Management of chest tubes per primary service
Pain control
RASS goal of 0 to -1
Intubated for procedure, extubated and doing well
ABG(s) reviewed/adequate
CXR with stable postop changes
Extubated per protocol
Maintain supplement oxygen as needed
No prior history of pulmonary disease--effusions noted on imaging
Suspect pulmonary changes are more related to acute coronary syndrome/pulmonary edema-small bilateral pleural effusion, increased proBNP, upper lobe predominant infiltrates.
Patient did have some fever for 24 hours but rapidly resolved, initially with leukocytosis but rapidly resolved-? Related to acute coronary syndrome.
Currently on Levaquin day 4-will obtain procalcitonin-if negative for minimally elevated will complete only 5 days of antibiotics.
No prior PFTs for review
Can add nebulizers if needed
Aspiration precautions
Encouraged incentive spirometry, OOB/ambulation/early mobility
Advance diet as tolerated following extubation
GI prophylaxis if indicated for mechanical ventilation >48 hours
Monitor critical I/O's
Meredith/chest tube output
Hb/platelets postoperatively stable
Trend CBC for now
Can transfuse if indicated for Hb <7, plt <50 in surgical patients
DVT prophylaxis including SCDs
Insulin protocol initiated and ongoing
Transition to SQ/off as indicated per team
Radiographic follow-up will be needed in the outpatient setting-discussed with patient. He is a former smoker.
Snoring: Discussed with patient possibility of obstructive sleep apnea. was present and she agrees.
Information will be left in the chart for follow-up in the outpatient setting.
Data Reviewed:
CXR 11/03/24- Postoperative tubes/lines. Improved mild pulmonary interstitial edema.
CT chest: 10/28/2024: Small bilateral pleural effusions with compressive atelectasis. Patchy consolidation within the posterior aspects of bilateral upper lobes, right greater than left. Severe coronary artery calcifications.
Echo 10/28/2024: EF 50-55% by Alonso's method of discs. Basal to mid inferior and inferolateral wall mild hypokinesis. Mitral annular calcification. Mild to moderate mitral regurgitation.
Mild tricuspid regurgitation. Estimated pulmonary artery pressure of 25 mmHg
Cardiac catheterization 10/28/2024:
1. Multivessel coronary artery disease with chronic total occlusion of the proximal to mid RCA throughout the entire stented segment. The distal vessel is noted to fill via [id number] collaterals. There is a heavily calcified high-grade ostial
stenosis as the circumflex arises at an acute angle from the left main. The LAD is calcified with diffuse luminal irregularities and focal 60-70% mid stenosis. Branch vessel disease is noted at the origin of the diagonal branch, OM1, OM 2.
2. Low normal to mildly reduced LVEF estimated at 45-50% with basal inferolateral hypokinesis
Critical Care time 31 mins -- The patient is admitted for acute critical illness for the treatment of vital organ failure and/or prevention of further life-threatening conditions. Total care includes time spent in review of history, physical exam,
medications, hemodynamic/ventilator parameters, laboratory data, imaging and discussion with house staff, pharmacy, respiratory therapy, gate guard, and nursing.
Subjective Dataa
Subjective Data
Date of Service:
Date of Service: November 05, 2024
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
Subjective:
Doing well post extubation
Off pressors
Stable on RA
Remains on insulin gtt
Objective Data
Data Reviewed
Vital Signs / I&O / Oxygen:
Vital Signs
Temp Pulse Resp BP Pulse Ox
98 F 93 24 113/62 98
11/05/24 04:00 11/05/24 07:00 11/05/24 07:00 11/05/24 07:00 11/05/24 07:00
Intake and Output
11/04/24 11/05/24 11/06/24
06:59 06:59 06:59
Intake Total 1335.9 / 1356.3 862.2 / 872.8 10.6 / 10.6
Output Total 1854 1100 / 1130 30
Balance -519.1 / -638.7 -237.8 / -257.2 -19.4 / -19.4
SaO2 [CPAP] 100
SaO2 [SIMV] 0
SaO2 98
Nasal Cannula flow liters per 1
minute
Physical Exam
General: Comfortable and Other (NAD)
HEENT: Normocephalic, Anicteric and Moist Mucous Membranes
Cardiovascular: S1-S2 and Regular Rhythm
Respiratory: Clear, Non-Labored Respirations and Chest Tube
GI: Soft, Non Distended and Non Tender
Neurology: Awake, Alert, Oriented and No Motor Deficits
Skin: Warm, Dry and Good Color
Labs/Micro/Reports
Lab Data
11/05/24 05:30
11/05/24 05:30
Microbiology
11/01/24 19:52 Sputum Respiratory Culture - Final
Usual Respiratory Miranda
11/01/24 19:52 Sputum Gram Stain - Final
11/03/24 06:51 Urine Urine Culture - Final
NO GROWTH
10/29/24 21:43 Blood/Venous Blood Culture - Final
No Growth - Final Report
10/29/24 21:14 Blood/Venous Blood Culture - Final
No Growth - Final Report
[2024-11-05] MEDS: NOVOLOG FLEXPEN SC ×2 (08:41→17:50)
[2024-11-05 08:47] LABS: Glucose - Point of Care 114 mg/dl (70-99)
[2024-11-05] MEDS: BACTROBAN 2% OINTMENT 1 APPLIC NASAL ×2 (08:51→19:43)
[2024-11-05] MEDS: LOW STRENGTH ASPIRIN 81 MG PO (08:52)
[2024-11-05] MEDS: LIDOCAINE 4% PATCH 1 PATCH TOPICAL (08:52)
[2024-11-05] MEDS: SINGULAIR 10 MG PO (08:52)
[2024-11-05] MEDS: SENOKOT-S 1 TABLET PO ×2 (08:53→20:17)
[2024-11-05] MEDS: VITAMIN B-12 1000 MCG PO (08:53)
[2024-11-05] MEDS: PROTONIX 40 MG PO (08:54)
[2024-11-05] MEDS: MAGNESIUM OXIDE 500 MG PO ×2 (08:54→19:44)
[2024-11-05] MEDS: NEURONTIN 100 MG PO ×3 (08:54→21:36)
[2024-11-05] MEDS: PLAVIX 75 MG PO (08:54)
[2024-11-05] MEDS: FEOSOL 325 MG PO ×2 (08:54→19:44)
[2024-11-05] MEDS: PACERONE 200 MG PO ×3 (08:55→21:36)
--- NOTE | 2024-11-05 10:01 | W.PN.CARDCBS ---
Today's Communication / Plan
-
Continue postoperative supportive care
Noted elevated white count, decreased hemoglobin, and sinus tachycardia which may be physiologic
Continue aspirin, Plavix, beta-marianela, statin
Monitor on telemetry
Impression / Plan
-
PCP: Unknown
Poacher Operator: None locally, follows w/ cardiology in [facility]
Impression:
Presented with epigastric chest pain
NSTEMI, peak trop 6.5
CAD
s/p prox RCA PCI 03/29/2019
MV CAD by cath 10/28/24
Status post CABG x 4 Julia to LAD, GSV to D1, GSV to OM1, GSV to RPDA, EF MARY, drainage of bilateral pleural effusions (to 50 mL on left and to 75 mm on right) 11/03/24
Acute HFpEF
Concern for PNA
DM2
HLD
HTN
GERD
Echo 10/28/2024: EF 50-55%, stage I diastolic dysfunction, basal to mid inferior and inferolateral wall mild hypokinesis, MAC, mild to mod MR, mild TR, estimated PAP 25 mmHg
LHC 10/28/2024: LM: Tubular 40% stenosis with additional distal tapering. LAD: Proximal LAD has a 50% stenosis with diffuse moderate atherosclerotic disease into the mid LAD where a long 60% stenosis is noted. First diagonal branch has a proximal 60%
stenosis with focal 70% stenosis in midportion. LCx: Heavily calcified with a 95% ostial stenosis. OM1 has a 70% narrowing at its origin. OM2 also has a 50% ostial stenosis. RCA: Overlapping stents from proximal to mid RCA are 100% occluded. Distal
vessel is noted to fill via left to right collaterals. 2+ MR.
Plan:
-Presented with epigastric chest pain. Admitted with NSTEMI. Initial troponin 6.59, trending down thereafter. Cath with multivessel CAD.
-Status post CABG x 4 Julia to LAD, GSV to D1, GSV to OM1, GSV to RPDA, EF MARY, drainage of bilateral pleural effusions (to 50 mL on left and to 75 mm on right) 11/03/24
-off pressors. on midodrine 10mg TID, wean as able
-in SR on review of EKG 11/04 and tele. preop was on toprol 25mg BID. currently on amiodarone, lopressor resumed
-hgb 9.6 downtrending to 8.1. continue asa, plavix, monitor hemoglobin
� White blood cell count elevated from 14-16, no reported fevers, previously treated for pneumonia, deferring to CT surgical service regarding additional treatments. Telemetry shows sinus tachycardia which is new which may be related to patient's
underlying infection versus atelectasis, continue to monitor
-continue diuresis post op
-LDL 51. Continue Crestor 20mg daily.
-Hgb A1c 6.5%. Continue DM management per primary service.
-had temp of 102 over last weekend. concern for PNA by initial CXR. received levaquin, defer additional abx to pulm. procal 0.05 on 11/03
-continue post op care, OOB/IS
-d/w nursing, CT surgical team
HPI: Owen is a 69 year old male with PMH of CAD w/ prior overlapping stents of the proximal RCA in 2019, DM2, HLD, HTN, and GERD. Presented to [facility] ER for evaluation of epigastric chest discomfort. Pain started a few days ago and he describes it as
a feeling of fullness or needing to belch, but being unable to. Denies any SOB or diaphoresis. Pain centrally located, but does radiate into jaw and L arm at times. Due to persistent pain, he came to ER for evaluation. On arrival, pain continued at
a 5/10 in severity. Labwork revealed elevated troponin of 6.59. EKG with RBBB and significant ST depressions. He was started on IV heparin and given SL nitro and morphine. Pain improved this AM. Repeat troponin trending down, however given h/o CAD
w/ recurrent symptoms concerning for angina, cardiology consulted.
Progress Note - Poacher Operator
Subjective
Date of Service: November 05, 2024
Patient seen and examined this morning. No acute events overnight. Patient resting comfortably in chair notes mild incisional chest discomfort. Denies any fevers, chills, cough, congestion, or weakness.
Objective
Labs:
11/05/24 05:30
11/05/24 05:30
Labs
Hgb 8.1 g/dL (13.0-18.0) L 11/05/24 05:30
Hct 23.8 % (39.0-52.0) L 11/05/24 05:30
Plt Count 185 10^3/uL (130-400) 11/05/24 05:30
PT 19.6 Sec (11.4-14.6) H 11/03/24 13:29
INR 1.63 11/03/24 13:29
APTT 31.1 Sec (23.4-35.0) 11/03/24 13:29
Sodium 131 mmol/L (135-145) L 11/05/24 05:30
Potassium 4.2 mmol/L (3.5-5.1) 11/05/24 05:30
BUN 23 mg/dl (9-20) H 11/05/24 05:30
Creatinine 0.9 mg/dL (0.7-1.3) 11/05/24 05:30
Glucose 85 mg/dl (70-99) 11/05/24 05:30
Vital Signs and I&O:
Vital Signs
Temp Pulse Resp BP Pulse Ox
97.8 F 109 28 108/68 99
11/05/24 08:00 11/05/24 09:00 11/05/24 09:00 11/05/24 09:00 11/05/24 08:30
Vital Signs
Temp Pulse Resp BP Pulse Ox
97.8 F 109 28 108/68 99
11/05/24 08:00 11/05/24 09:00 11/05/24 09:00 11/05/24 09:00 11/05/24 08:30
Intake & Output
11/03/24 11/04/24 11/05/24 11/06/24
06:59 06:59 06:59 06:59
Intake Total 1325 / 1325 1335.9 / 1356.3 862.2 / 872.8 33.5 / 33.5
Output Total 1854 / 1994 1100 / 1130 115 / 115
Balance 1325 / 1325 -519.1 / -638.7 -237.8 / -257.2 -81.5 / -81.5
Physical Exam
Physical Exam
GEN: No distress, awake, alert, oriented x3. on supp O2. sitting in chair
HEENT: supple, anicteric, mmm, eomi
LUNGS: Poor inspiratory effort, CTA B/L, no wheezes/rales
CV: Reg, S1/S2, no murmur
EXT: No cyanosis, clubbing. trace edema of B/L LE
NEURO: Gross non-focal
SKIN: Warm, pink, dry. No rash. CTs in place
Telemetry shows sinus rhythm/sinus tachycardia
[2024-11-05 11:38] LABS: Glucose - Point of Care 194 mg/dl (70-99)
--- NOTE | 2024-11-05 12:00 | PTCARENOTE ---
CTx4 d/c'd without incident. VSS. will continue to monitor
[2024-11-05] MEDS: KCL 20 MEQ PO (12:14)
[2024-11-05] MEDS: LASIX 40 MG IV (12:14)
[2024-11-05] MEDS: LEVAQUIN 250 MG PO (12:15)
[2024-11-05] MEDS: NOVOLOG FLEXPEN 4 UNITS SC (13:14)
[2024-11-05] MEDS: NSS IV (16:36)
--- NOTE | 2024-11-05 17:12 | PTCARENOTE ---
Resumed care of patient from previous RN. Walking rounds done. Pt sitting in chair at time of assessment. AAOx3. VSS. SR/ST. Pt on room air. Sats 98%. lungs diminished. Shallow. IS 750. CTx4 to -20 cm suction. For d/c today. + bs x 4. Meredith draining
yellow urine. Insulin infusing through cordis per Glycemic protocol. See MAR for pain med dosing. will continue to monitor.
--- NOTE | 2024-11-05 17:41 | PTCARENOTE ---
no chnge in assessment from previous. will continue to monitor. resting in bed at this time.
[2024-11-05] MEDS: CRESTOR 20 MG PO (17:57)
[2024-11-05 18:50] LABS: Glucose - Point of Care 313 mg/dl (70-99)
[2024-11-05] MEDS: NOVOLOG FLEXPEN 300 UNITS SC (18:50)
--- NOTE | 2024-11-05 19:30 | PTCARENOTE ---
assumed care of pt from previous RN. pt A&Ox4, resting in chair at time of assessment. ST on tele-monitor. POX 100% on RA. abd s/n, +BS. pt confirms passing gas. rivero catheter draining clear, yellow urine. all surgical sites stable, CDI. R IJ
cordis w/ KVO. PIV intact. see worklist for complete nursing assessment, interventions, VS, and I&Os.
[2024-11-05] MEDS: SENOKOT-S PO (19:44)
[2024-11-05] MEDS: FLOMAX 0.4 MG PO (19:44)
[2024-11-05] MEDS: REMOVE LIDOCAINE PATCH 1 PATCH REMOVE (20:17)
[2024-11-05] MEDS: LOPRESSOR 12.5 MG PO (20:17)
[2024-11-05 21:54] LABS: Glucose - Point of Care 289 mg/dl (70-99)
[2024-11-05] MEDS: NSS 500 IV (23:26)
[2024-11-06] VITALS (24 sets, daily range): BP systolic 89–118; BP diastolic 54–76; BMI 23.2
--- NOTE | 2024-11-06 | PTCARENOTE ---
assessment remains unchanged. VSS.
--- NOTE | 2024-11-06 02:00 | PTCARENOTE ---
pt reports feeling anxious d/t 'heart thumping.' CT TERRAZZO SUPERVISOR made aware. orders for seroquel.
[2024-11-06] MEDS: SEROQUEL 50 MG PO (02:07)
--- NOTE | 2024-11-06 04:30 | PTCARENOTE ---
no acute changes. VSS. AM labs collected and sent.
[2024-11-06 04:48] LABS: Hematocrit 25.1 % (39.0-52.0); Hemoglobin 8.5 g/dL (13.0-18.0); Mean Corp Hgb Conc. 33.9 g/dL (33.0-37.0); Mean Corpuscular Volume 87.5 fL (80.0-94.0); Platelet Count 218 10^3/uL (130-400); Red Cell Dist. Width 13.9 % (11.5-14.5)
[2024-11-06 05:06] LABS: Blood Urea Nitrogen 18 mg/dl (9-20); Calcium 8.3 mg/dl (8.4-10.2); Carbon Dioxide 26 mmol/L (22-30); Chloride 102 mmol/L (98-107); Estimated Creatinine Clearance 66 ml/min; Glucose 151 mg/dl (70-99); Magnesium 2.1 mg/dl (1.6-2.3); Potassium 4.5 mmol/L (3.5-5.1); Sodium 132 mmol/L (135-145); eGFR > 60.00
--- NOTE | 2024-11-06 06:03 | W.PN.CT ---
Addendum entered and electronically signed by Tay Herrera MD 11/06/24 09:22:
I saw and examined the patient.
The PA's note was reviewed and I agree with the note.
Comment:
POD#3
No major events. BB restarted
CTs out, rivero out today
OOB/IS/ambulate
D/C planning for hopefully home tomorrow
Original Note:
Today's Communication / Plan
-
- Off Levophed now on midodrine, mild tachycardia to low 100s, BB restarted
- continue ASA/Plavix
- CTs DCd
- s/p 40 lasix, UOP 1400/3550 cc in 12/24 hrs
- Levaquin started for concern of PNA
- continue Crestor, amio, asa, metoprolol 12.5 mg, mag ox, Plavix, midodrine 10 mg TID
- Continue Flomax, iron, APAP, gabapentin, lidocaine patch, PPI
- resumed metformin
- case management to mims SGLT2i
Assessment / Plan
-
s/p CABG x 4 (MICKI to LAD, GSV to D1, GSV to OM1, GSV to RPDA), ELAA (35mm AtriClip), Drainage of B/L pleural effusions (~250mL L and 275mm R) by Dr Tay Herrera-pod#3
SIDNEY: EF 50-55%, mild-mod MR ,tr AI/TR
-Severe 3v CAD/40% LM
-NSTEMI (peak trop 6.590)
-Hx CAD S/P PCI with stent x 2 to RCA, 03/29/2019
-Recent fever, suspected b/l RUL pneumonia (on empiric Levaquin, PCN allergy)
-T2DM (hgb A1C 6.5)
-HLD
-HTN
-GERD
-BPH (on Flomax)
-Former tobacco use (quit 1989)
-Diabetes mellitus (A1C 6.5)
-Hyperthyroidism
-Iron/B12 deficiency anemia
- Acute postop respiratory insufficiency (extubated to 6L NC)
- Acute postop blood loss on chronic anemia (expected s/p cardiac surgery)
- Acute postop hyponatremia (Na+ 133)
- Acute postop hypovolemia
Subjective
Procedure
s/p CABG x 4 (MICKI to LAD, GSV to D1, GSV to OM1, GSV to RPDA), ELAA (35mm AtriClip), Drainage of B/L pleural effusions (~250mL L and 275mm R)
-
Date of Service: November 06, 2024
Objective Data
-
Lab Results
11/06/24 04:29
11/06/24 04:29
PT 19.6 Sec (11.4-14.6) H 11/03/24 13:29
INR 1.63 11/03/24 13:29
APTT 31.1 Sec (23.4-35.0) 11/03/24 13:29
Vital Signs
Vital Signs
Temp Pulse Resp BP Pulse Ox
98.2 F 94 12 97/54 97
11/06/24 02:00 11/06/24 04:00 11/06/24 05:00 11/06/24 04:00 11/06/24 04:00
CT Intake/Output/Weight
11/05/24 11/05/24 11/06/24
06:59 18:59 06:59
Intake Total 148.2 / 872.8 484.1 / 584.1 100 / 584.1
Output Total 480 / 1130 2225 / 3625 1400 / 3625
Balance -331.8 / -257.2 -1740.9 / -3040.9 -1300 / -3040.9
SaO2: 97
Physical Exam
-
General: Awake, Oriented and AOx3
Cardiovascular: Regular rate & rhythm, No Murmurs and No Rub
Respiratory: Clear and Equal
Sternum: Stable
Incision: Clean, Dry and Intact
Extremities: No Edema
Data Reviewed
-
Lab Results: Results Reviewed
Medications: Active Meds Reviewed
Chest X-Ray: Report Reviewed and Image Reviewed
ECG: Report Reviewed
[2024-11-06] MEDS: TYLENOL PO (06:50)
--- NOTE | 2024-11-06 08:00 | PTCARENOTE ---
assumed care of pt from previous RN. walking rounds completed. pt in chair at time of assessment. pt AAOx3. ST on tele-monitor. POX 98% on RA. +BS. rivero catheter draining clear, yellow urine. will d/c this PM. all surgical sites stable, CDI. R IJ
cordis/PIV intact. swill continue to monitor.
[2024-11-06 08:15] LABS: Glucose - Point of Care 161 mg/dl (70-99)
[2024-11-06] MEDS: NEURONTIN 100 MG PO ×3 (08:53→21:44)
[2024-11-06] MEDS: LOPRESSOR 12.5 MG PO (08:53)
[2024-11-06] MEDS: LIDOCAINE 4% PATCH 1 PATCH TOPICAL (08:53)
[2024-11-06] MEDS: MAGNESIUM OXIDE 500 MG PO ×2 (08:53→20:04)
[2024-11-06] MEDS: LEVAQUIN 250 MG PO (08:53)
[2024-11-06] MEDS: PROTONIX 40 MG PO (08:54)
[2024-11-06] MEDS: SINGULAIR 10 MG PO (08:54)
[2024-11-06] MEDS: LOW STRENGTH ASPIRIN 81 MG PO (08:54)
[2024-11-06] MEDS: SENOKOT-S 1 TABLET PO ×2 (08:54→20:04)
[2024-11-06] MEDS: PLAVIX 75 MG PO (08:55)
[2024-11-06] MEDS: VITAMIN B-12 1000 MCG PO (08:55)
[2024-11-06] MEDS: GLUCOPHAGE 500 MG PO ×2 (08:55→17:53)
[2024-11-06] MEDS: PACERONE 200 MG PO ×2 (08:57→16:24)
[2024-11-06] MEDS: BACTROBAN 2% OINTMENT 1 APPLIC NASAL ×2 (08:57→20:03)
[2024-11-06] MEDS: FEOSOL 325 MG PO ×2 (08:57→20:04)
[2024-11-06] MEDS: ROXICODONE 5 MG PO (09:03)
--- NOTE | 2024-11-06 09:34 | W.PN.CARDCBS ---
Today's Communication / Plan
-
Continue supportive care, out of bed, incentive spirometer
Monitor on telemetry
Goal-directed therapy with beta-marianela
Impression / Plan
-
PCP: Unknown
Manager Federal: None locally, follows w/ cardiology in [facility]
Impression:
Presented with epigastric chest pain
NSTEMI, peak trop 6.5
CAD
s/p prox RCA PCI 03/29/2019
MV CAD by cath 10/28/24
Status post CABG x 4 Julia to LAD, GSV to D1, GSV to OM1, GSV to RPDA, EF MARY, drainage of bilateral pleural effusions (to 50 mL on left and to 75 mm on right) 11/03/24
Acute HFpEF
Concern for PNA
DM2
HLD
HTN
GERD
Echo 10/28/2024: EF 50-55%, stage I diastolic dysfunction, basal to mid inferior and inferolateral wall mild hypokinesis, MAC, mild to mod MR, mild TR, estimated PAP 25 mmHg
LHC 10/28/2024: LM: Tubular 40% stenosis with additional distal tapering. LAD: Proximal LAD has a 50% stenosis with diffuse moderate atherosclerotic disease into the mid LAD where a long 60% stenosis is noted. First diagonal branch has a proximal 60%
stenosis with focal 70% stenosis in midportion. LCx: Heavily calcified with a 95% ostial stenosis. OM1 has a 70% narrowing at its origin. OM2 also has a 50% ostial stenosis. RCA: Overlapping stents from proximal to mid RCA are 100% occluded. Distal
vessel is noted to fill via left to right collaterals. 2+ MR.
Plan:
-Presented with epigastric chest pain. Admitted with NSTEMI. Initial troponin 6.59, trending down thereafter. Cath with multivessel CAD.
-Status post CABG x 4 Julia to LAD, GSV to D1, GSV to OM1, GSV to RPDA, EF MARY, drainage of bilateral pleural effusions (to 50 mL on left and to 75 mm on right) 11/03/24
-off pressors. on midodrine 10mg TID, wean as able
-in SR on review of EKG 11/04 and tele. preop was on toprol 25mg BID. currently on amiodarone, lopressor resumed
-hgb 9.6 downtrending to 8.1. continue asa, plavix, monitor hemoglobin
� White blood cell count elevated from 14-16, no reported fevers, previously treated for pneumonia, deferring to CT surgical service regarding additional treatments. Telemetry shows sinus tachycardia which is new which may be related to patient's
underlying infection versus atelectasis, continue to monitor; this is now improving, white blood cell count downtrending to 12 today with heart rate improving
-continue diuresis post op
-LDL 51. Continue Crestor 20mg daily.
-Hgb A1c 6.5%. Continue DM management per primary service.
-had temp of 102 over last weekend. concern for PNA by initial CXR. received levaquin, defer additional abx to pulm. procal 0.05 on 11/03
-continue post op care, OOB/IS
-d/w nursing, CT surgical team
HPI: Owen is a 69 year old male with PMH of CAD w/ prior overlapping stents of the proximal RCA in 2019, DM2, HLD, HTN, and GERD. Presented to [facility] ER for evaluation of epigastric chest discomfort. Pain started a few days ago and he describes it as
a feeling of fullness or needing to belch, but being unable to. Denies any SOB or diaphoresis. Pain centrally located, but does radiate into jaw and L arm at times. Due to persistent pain, he came to ER for evaluation. On arrival, pain continued at
a 5/10 in severity. Labwork revealed elevated troponin of 6.59. EKG with RBBB and significant ST depressions. He was started on IV heparin and given SL nitro and morphine. Pain improved this AM. Repeat troponin trending down, however given h/o CAD
w/ recurrent symptoms concerning for angina, cardiology consulted.
Progress Note - Manager Federal
Subjective
Date of Service: November 06, 2024
Patient seen and examined. No acute events overnight. Patient resting comfortably in chair however does note dizziness and fatigue. Denies chest pain, shortness of breath, or focal weakness. -3.2 L over last 24 hours
Objective
Labs:
11/06/24 04:29
11/06/24 04:29
Labs
Hgb 8.5 g/dL (13.0-18.0) L 11/06/24 04:29
Hct 25.1 % (39.0-52.0) L 11/06/24 04:29
Plt Count 218 10^3/uL (130-400) 11/06/24 04:29
PT 19.6 Sec (11.4-14.6) H 11/03/24 13:29
INR 1.63 11/03/24 13:29
APTT 31.1 Sec (23.4-35.0) 11/03/24 13:29
Sodium 132 mmol/L (135-145) L 11/06/24 04:29
Potassium 4.5 mmol/L (3.5-5.1) 11/06/24 04:29
BUN 18 mg/dl (9-20) 11/06/24 04:29
Creatinine 0.9 mg/dL (0.7-1.3) 11/06/24 04:29
Glucose 151 mg/dl (70-99) H 11/06/24 04:29
Vital Signs and I&O:
Vital Signs
Temp Pulse Resp BP Pulse Ox
98.3 F 106 18 111/58 98
11/06/24 08:00 11/06/24 08:53 11/06/24 08:00 11/06/24 08:53 11/06/24 08:00
Vital Signs
Temp Pulse Resp BP Pulse Ox
98.3 F 106 18 111/58 98
11/06/24 08:00 11/06/24 08:53 11/06/24 08:00 11/06/24 08:53 11/06/24 08:00
Intake & Output
11/04/24 11/05/24 11/06/24 11/07/24
06:59 06:59 06:59 06:59
Intake Total 1335.9 / 1356.3 862.2 / 872.8 604.1 / 614.1
Output Total 1854 / 1994 1100 / 1130 3800 / 3900 200 / 200
Balance -519.1 / -638.7 -237.8 / -257.2 -3195.9 / -3285.9 -170 / -170
Physical Exam
Physical Exam
GEN: No distress, awake, alert, oriented x3. on supp O2. sitting in chair
HEENT: supple, anicteric, mmm, eomi
LUNGS: Poor inspiratory effort, CTA B/L, no wheezes/rales
CV: Reg, S1/S2, no murmur
EXT: No cyanosis, clubbing. trace edema of B/L LE
NEURO: Gross non-focal
SKIN: Warm, pink, dry. No rash. CTs in place
Telemetry shows sinus rhythm/sinus tachycardia
[2024-11-06] MEDS: MUCINEX 600 MG PO ×2 (11:21→20:04)
[2024-11-06 13:34] LABS: Glucose - Point of Care 124 mg/dl (70-99)
[2024-11-06] MEDS: NOVOLOG FLEXPEN-MODERATE RESISTANCE SC ×2 (14:11→17:53)
[2024-11-06] MEDS: TYLENOL 1000 MG PO ×2 (16:24→21:44)
[2024-11-06 16:28] LABS: Glucose - Point of Care 148 mg/dl (70-99)
--- NOTE | 2024-11-06 17:48 | PTCARENOTE ---
able to void post rivero removal.
[2024-11-06] MEDS: CRESTOR 20 MG PO (17:53)
--- NOTE | 2024-11-06 20:00 | PTCARENOTE ---
Assumed care of the patient at 1900. Patient OOB to chair, family at bedside, AOx3, pain an acceptable level at this time. ST on CM, rates 100-110's, increased with activity, pending night med administration, pulses palpable, no rub appreciated on
auscultation, +2 pitting pedal edema. Lungs diminished throughout, RA, no cough heard at this time. Abdomen SNT, tolerating diet well, BG monitored per orders. Patient reports voiding without difficulty since Meredith removal x1. All surgical sites
stable and intact. PIV INT and RIJ Cordis maintained overnight per CVPA. See nursing worklist for additional intervention details.
[2024-11-06] MEDS: FLOMAX 0.4 MG PO (20:04)
[2024-11-06] MEDS: LOPRESSOR 25 MG PO (20:04)
[2024-11-06] MEDS: REMOVE LIDOCAINE PATCH 1 PATCH REMOVE (20:05)
[2024-11-06] MEDS: PACERONE 400 MG PO (21:45)
[2024-11-06 21:52] LABS: Glucose - Point of Care 200 mg/dl (70-99)
[2024-11-06] MEDS: NOVOLOG FLEXPEN 4 UNITS SC (22:33)
[2024-11-07] VITALS (10 sets, daily range): BP systolic 94–128; BP diastolic 56–69; PULSE 110; O2SAT 96–97; BMI 23.3
--- NOTE | 2024-11-07 | PTCARENOTE ---
Subq insulin for nighttime BG 200. Increased amio dose administered. Patient ambulated to the bathroom and reported BM. Use of urinal to measure output discussed. Assessment of needs ongoing.
[2024-11-07] MEDS: ROXICODONE 5 MG PO (02:12)
--- NOTE | 2024-11-07 03:53 | W.PN.CT ---
Today's Communication / Plan
-
Plan:
-No major issues overnight. Hemodynamically and neurologically intact
-Acute postop hypotension, improved
-Midodrine placed on PRN
-On Lopressor 25 mg BID given postop tachycardia, will transition back to preop Toprol XL, was on bisoprolol fumarate @ home, Cardiology to comment
-Will d/c empiric Levaquin for suspected PNA, has completed more than 5 days (started 10/30), was 8 days yesterday
-Cont. current meds (ASA, Plavix, Amiodarone, Crestor, Toprolol XL)
-Encourage use of IS
-OOB into chair/Ambulate
-Home today
Assessment / Plan
-
s/p CABG x 4 (MICKI to LAD, GSV to D1, GSV to OM1, GSV to RPDA), ELAA (35mm AtriClip), Drainage of B/L pleural effusions (~250mL L and 275mm R) by Dr Tay Herrera-pod#4
SIDNEY: EF 50-55%, mild-mod MR ,tr AI/TR
-Severe 3v CAD/40% LM
-NSTEMI (peak trop 6.590)
-Hx CAD S/P PCI with stent x 2 to RCA, 03/29/2019
-Recent fever, suspected b/l RUL pneumonia (on empiric Levaquin, PCN allergy)
-T2DM (hgb A1C 6.5)
-HLD
-HTN
-GERD
-BPH (on Flomax)
-Former tobacco use (quit 1989)
-Diabetes mellitus (A1C 6.5)
-Hyperthyroidism
-Iron/B12 deficiency anemia
- Acute postop blood loss on chronic anemia (expected s/p cardiac surgery)
- Acute postop atelectasis
- Acute postop hyponatremia (Na+ 133)
- Acute postop hypovolemia with subsequent hypervolemia
- Acute postop tachycardia
Discussed patient care with: Cardiology, Nursing, Respiratory Therapy, Pharmacy and Care Team
Subjective
Procedure
s/p CABG x 4 (MICKI to LAD, GSV to D1, GSV to OM1, GSV to RPDA), ELAA (35mm AtriClip), Drainage of B/L pleural effusions (~250mL L and 275mm R)
-
Date of Service: November 07, 2024
Pt c/o mild incisional pain, otherwise feels well. Ambulating halls without difficulty and had a BM last night
Objective Data
-
PT 19.6 Sec (11.4-14.6) H 11/03/24 13:29
INR 1.63 11/03/24 13:29
APTT 31.1 Sec (23.4-35.0) 11/03/24 13:29
Vital Signs
Vital Signs
Temp Pulse Resp BP Pulse Ox
98.6 F 87 18 106/59 98
11/07/24 00:08 11/07/24 01:00 11/07/24 00:08 11/07/24 00:00 11/07/24 00:08
CT Intake/Output/Weight
11/06/24 11/06/24 11/07/24
06:59 18:59 06:59
Intake Total 120 / 614.1 100 / 340 240 / 340
Output Total 1575 / 3900 510 / 510
Balance -1455 / -3285.9 -410 / -170 240 / -170
SaO2: 98 (RA)
Physical Exam
-
General: Awake, Oriented and AOx3
Cardiovascular: Regular rate & rhythm, No Murmurs, No Rub and No Gallop
Respiratory: Decreased Breath Sounds (at bases, otherwise clear)
Sternum: Stable
Incision: Clean, Dry, Intact and Dressing Intact
Extremities: Other (+trace edema)
Data Reviewed
-
Lab Results: Results Reviewed
Medications: Active Meds Reviewed
Chest X-Ray: Report Reviewed and Image Reviewed
ECG: Report Reviewed and Image Reviewed
[2024-11-07 04:41] LABS: Hematocrit 25.7 % (39.0-52.0); Hemoglobin 8.6 g/dL (13.0-18.0); Mean Corp Hgb Conc. 33.5 g/dL (33.0-37.0); Mean Corpuscular Volume 88.3 fL (80.0-94.0); Platelet Count 255 10^3/uL (130-400); Red Cell Dist. Width 13.8 % (11.5-14.5)
[2024-11-07 05:05] LABS: Blood Urea Nitrogen 16 mg/dl (9-20); Calcium 8.3 mg/dl (8.4-10.2); Carbon Dioxide 27 mmol/L (22-30); Chloride 101 mmol/L (98-107); Estimated Creatinine Clearance 66 ml/min; Glucose 138 mg/dl (70-99); Magnesium 1.9 mg/dl (1.6-2.3); Potassium 4.6 mmol/L (3.5-5.1); Sodium 131 mmol/L (135-145); eGFR > 60.00
[2024-11-07] MEDS: TYLENOL 1000 MG PO (05:20)
[2024-11-07] MEDS: CALCIUM GLUCONATE 130 MG IV (05:20)
[2024-11-07 07:29] LABS: Glucose - Point of Care 166 mg/dl (70-99)
[2024-11-07] MEDS: NOVOLOG FLEXPEN-MODERATE RESISTANCE 1 UNITS SC (07:29)
[2024-11-07] MEDS: LIDOCAINE 4% PATCH 1 PATCH TOPICAL (07:38)
[2024-11-07] MEDS: MAGNESIUM OXIDE 500 MG PO (07:39)
[2024-11-07] MEDS: MUCINEX 600 MG PO (07:39)
[2024-11-07] MEDS: TOPROL XL 25 MG PO (07:39)
[2024-11-07] MEDS: LOW STRENGTH ASPIRIN 81 MG PO (07:39)
[2024-11-07] MEDS: SINGULAIR 10 MG PO (07:39)
[2024-11-07] MEDS: BACTROBAN 2% OINTMENT 1 APPLIC NASAL (07:39)
[2024-11-07] MEDS: NEURONTIN 100 MG PO (07:40)
[2024-11-07] MEDS: SENOKOT-S 1 TABLET PO (07:40)
[2024-11-07] MEDS: GLUCOPHAGE 500 MG PO (07:40)
[2024-11-07] MEDS: FEOSOL 325 MG PO (07:41)
[2024-11-07] MEDS: PROTONIX 40 MG PO (07:41)
[2024-11-07] MEDS: VITAMIN B-12 1000 MCG PO (07:41)
[2024-11-07] MEDS: PLAVIX 75 MG PO (07:41)
[2024-11-07] MEDS: PACERONE 200 MG PO (07:43)
--- NOTE | 2024-11-07 08:00 | PTCARENOTE ---
Pt walking the hirsch when we started getting report, pts gait appropriate, Pt AAOx3 pleasant in chair, Plan for the day is discharge no acute problems present working with team to get him ready for discharge
--- NOTE | 2024-11-07 08:00 | PN.DE.MGMTRT ---
Insulin Management
- -
11/07/2024 Diabetes Management Consult Follow up
Patient admitted 10/28 with PC NSTEMI - CABG 11/03. PMH CAD, stents in [place], diabetes. Prior to admission was taking metformin 500 mg BID. A1C on admission 6.5%, cr .9, eGFR > 60.
Patient is awake alert and oriented oob in chair able to discuss diabetes care. He has had diabetes since 1998, started metformin 2015. Has glucose monitor and follows with primary doctor for diabetes care.
POD 4 s/p CABG x 4. Transitioned from insulin infusion to metformin 500 mg BID. Glucose range 124 to 148, with one elevation 200 @ HS. Will make no change to regimen.
Discussed with nurse.
Will follow
Diabetes History
- -
Type of Diabetes: 2
Pre-Admission Diabetes Regimen
11/07/24
04:09
Creatinine 0.9
Lab Results
Hemoglobin A1c 6.5 % (4.0-5.6) H 10/28/24 01:56
Insulin Pump Settings
IP Diabetes Regimen
11/06/24 11/06/24 11/06/24
08:12 13:33 16:27
Glucose
POC Glucose 161 H 124 H 148 H
11/06/24 11/07/24 11/07/24
21:50 04:09 07:27
Glucose 138 H
POC Glucose 200 H 166 H
Meal type: Dinner
Amount consumed: 100%
Patient Education
--- NOTE | 2024-11-07 08:47 | W.DCSUMMARY ---
Discharge Summary
Discharge Data
Date of Admission: 10/28/24
Date of Discharge: 11/07/24
-
Pending Results: No
Hospital Course
Primary care physician: unknown
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 Tavo Rey following in house.
Inpatient consultants: [facility]
Procedures:
1. CABG x 4 (CHAVEZ-LAD, SVG � D1, SVG 0 OM, SVG RPDA), eLAA with b/l pleural effusion drain
Primary Diagnosis:
1. NSTEMI/Multivessel coronary artery disease s/p stent x 2 to RCA, 03/29/2019
Secondary Diagnoses:
1. Diabetes mellitus (A1C 6.5)
2. Hypertension
3. Hyperlipidemia
4. Gastroesophageal reflux disease
5. BPH
6. Iron deficiency anemia
7. Hyperthroidism
7. Pre-op suspected b/l RUL pneumonia (on empiric Levaquin, PCN allergy)
- Acute postop blood loss on chronic anemia (expected s/p cardiac surgery)
- Acute postop atelectasis
- Acute postop hyponatremia (Na+ 131)
- Acute postop hypovolemia with subsequent hypervolemia
- Acute postop tachycardia
HPI: 69-year-old male (primary language Greek-speaks and understands Mongolian) with past medical history of coronary artery disease last RCA PCI 2018, diabetes, hypertension, hyperlipidemia and GERD was admitted to [facility] ER on 10/28/24 with a
7 day history of intermittent epigastric discomfort that has increased in intensity.
Hospital course: Initial troponin I was 6.5 consistent with NSTEMI. Pain relieved with IV heparin sublingual nitroglycerin and morphine. Patient underwent TTE and left heart cath 10/28/24 which reported low normal EF and triple vessel coronary
disease. Patient underwent standard preop diagnostics which included CT of chest. This reported questionable pneumonia and patient started on empiric Levaquin. Patient was evaluated by pie baker with negative calcitonin and Levaquin stopped on
11/02/2024. Patient was brought to the operating room on 11/03/2024 and underwent CABG x 4 (CHAVEZ�LAD, SVG�diagonal 1, SVG�OM, SVG�RPDA), left atrial clip exclusion (#35mm AtriClip) and drainage of bilateral pleural effusions by Dr. Tay Herrera.
Postprocedure SIDNEY reported an EF of 50-55% with mild�moderate mitral regurgitation and trace aortic insufficiency/tricuspid regurgitation. Patient was extubated [id number] on the day of surgery. Midodrine was added to wean off Levophed
postoperatively. Mediastinal and pleural chest tubes were discontinued on postoperative day #2. Metoprolol was restarted. Patient was diuresed with 40 mg of IV Lasix with 2 L urine output response. Insulin drip was discontinued on postoperative
day #3. Metformin was resumed and Meredith discontinued. Beta-marianela was increased to 25 mg twice daily. Patient ambulated in halls. Case management investigated pricing of SGLT2 inhibitors and this is cost prohibitive as medication prescription
plan only covers generics. On postoperative day #4, patient independently ambulating in hirsch and completed steps. Two-view chest x-ray reported no acute pulmonary abnormality. Patient experienced no postoperative atrial fibrillation and amiodarone
prophylaxis was discontinued on discharge. Patient ambulating independently in halls and completed steps without difficulty. Diovan was not resumed on discharge as blood pressure low normal range. Simvastatin was converted to rosuvastatin and
aspirin changed to 81 mg from 100 mg daily. Bisoprolol changed to metoprolol. Patient will require CBC and BMP in 1 week to follow-up the discharge hemoglobin of 8.6 (up from 7.4 on 11/06) and sodium of 131 (from 132 on 11/06).
Home medication changes:
Stop Diovan
Bisoprolol changed to metoprolol
Stop simvastatin, continue Rosuvastatin
Stop aspirin 100mg daily. Change to Adpirin 81mg daily
Discharge Plan
-
Patient Disposition: Home (Routine Discharge)
Discharge Diagnosis/Procedures: CABG x 4; left atrial appendage clip (11/03/24)
Condition: Good
Diet: Low Cholesterol, Low Sodium and Diabetic, Carb Controlled
Activity: No strenuous activity
Driving Restrictions: Not until seen by your Dr
Bathing Restrictions: OK to Shower
Blood Work: CBC, BMP in 1 week
Other Services: Cardiac Rehab
Specialty Instructions: Weigh Daily- Call MD for wt gain/loss 3 lbs overnight/5 lbs in 1 week
Referrals:
CT Transitional Care Nurse [Outside] - in one to two days
Referral Note:
The Cardiothoracic Transitional Care Nurse will call you to set up a visit in 1-2 days.
Alyx Becker PA-C [Specified Professional Personl, Cardiology] - 12/19/24 9:00 am
Deny Varghese MD [Active, Pulmonary Medicine] - in four to six weeks
Referral Note: MARYAM eval.
NONE,* [Family Provider, Internal Medicine]
Florina Kelly CRNP [Specified Professional Personl, Cardiac Surgery] - 11/30/24 11:00 am
Prescriptions:
New
acetaminophen 325 mg Tablet
650 mg PO Q4HPRN PRN (Reason: mild pain,headache,temp >101F ) Qty: 0 0RF
clopidogrel 75 mg Tablet
75 mg PO DAILY Qty: 30 2RF
pantoprazole 40 mg Tablet,Delayed Release (Dr/Ec)
40 mg PO DAILY Qty: 30 2RF
ferrous sulfate [FeroSul] 325 mg (65 mg iron) Tablet
325 mg PO BID Qty: 60 0RF
aspirin 81 mg Tablet,Chewable
81 mg PO DAILY Qty: 0 0RF
oxycodone 5 mg Tablet
5 mg PO Q4HPRN PRN (Reason: severe pain) Qty: 10 0RF
cyclobenzaprine 10 mg Tablet
5 mg PO Q8HPRN PRN (Reason: muscle spasm) Qty: 10 0RF
gabapentin 100 mg Capsule
100 mg PO TID Qty: 30 0RF
metoprolol succinate 25 mg Tablet Extended Release 24 Hr
25 mg PO BID Qty: 60 2RF
Continued
metformin 500 mg Tablet
500 mg PO BID
montelukast 10 mg Tablet
10 mg PO DAILY
rosuvastatin 20 mg Tablet
20 mg PO DAILY
silodosin 8 mg Capsule
8 mg PO DAILY
Discontinued
simvastatin 10 MG tablet
20 mg PO DAILY
aspirin 81 MG tablet
100 mg PO DAILY
valsartan [Diovan] 80 mg Tablet
80 mg PO DAILY
bisoprolol fumarate 2.5 mg Tablet
2.5 mg PO DAILY
Discharge Orders:
Discharge Patient (As Directed); Ordered 11/07/24
Ordered By: Christina Negrete
Care Plan Goals
Care Plan Goals:
Problem: Readiness for enhanced knowledge related to diagnosis and treatment plan
Goal: Understand your diagnosis and treatment plan needs, including medications if applicable.
Instructions: Know your diagnosis, underlying causes and treatment plan options, including medications if applicable. Consult with your health care team to learn about your diagnosis and treatment plan, including medications if applicable.
Discharge Date and Time
Print Language: NIUEAN
--- NOTE | 2024-11-07 10:30 | W.PN.CARDCBS ---
Today's Communication / Plan
-
stable cardiology status for d/c
Impression / Plan
-
PCP: Unknown
Gimp Tacker: None locally, follows w/ cardiology in [facility]
Impression:
Presented with epigastric chest pain
NSTEMI, peak trop 6.5
CAD
s/p prox RCA PCI 03/29/2019
MV CAD by cath 10/28/24
Status post CABG x 4 Julia to LAD, GSV to D1, GSV to OM1, GSV to RPDA, EF MARY, drainage of bilateral pleural effusions (to 50 mL on left and to 75 mm on right) 11/03/24
Acute HFpEF
Concern for PNA
DM2
HLD
HTN
GERD
Echo 10/28/2024: EF 50-55%, stage I diastolic dysfunction, basal to mid inferior and inferolateral wall mild hypokinesis, MAC, mild to mod MR, mild TR, estimated PAP 25 mmHg
LHC 10/28/2024: LM: Tubular 40% stenosis with additional distal tapering. LAD: Proximal LAD has a 50% stenosis with diffuse moderate atherosclerotic disease into the mid LAD where a long 60% stenosis is noted. First diagonal branch has a proximal 60%
stenosis with focal 70% stenosis in midportion. LCx: Heavily calcified with a 95% ostial stenosis. OM1 has a 70% narrowing at its origin. OM2 also has a 50% ostial stenosis. RCA: Overlapping stents from proximal to mid RCA are 100% occluded. Distal
vessel is noted to fill via left to right collaterals. 2+ MR.
Plan:
stable cardiology status for d/c
d/w CT PA
HPI: Owen is a 69 year old male with PMH of CAD w/ prior overlapping stents of the proximal RCA in 2018, DM2, HLD, HTN, and GERD. Presented to [facility] ER for evaluation of epigastric chest discomfort. Pain started a few days ago and he describes it as
a feeling of fullness or needing to belch, but being unable to. Denies any SOB or diaphoresis. Pain centrally located, but does radiate into jaw and L arm at times. Due to persistent pain, he came to ER for evaluation. On arrival, pain continued at
a 5/10 in severity. Labwork revealed elevated troponin of 6.59. EKG with RBBB and significant ST depressions. He was started on IV heparin and given SL nitro and morphine. Pain improved this AM. Repeat troponin trending down, however given h/o CAD
w/ recurrent symptoms concerning for angina, cardiology consulted.
Progress Note - Gimp Tacker
Subjective
Date of Service: November 07, 2024
no complaints
Objective
Labs:
11/07/24 04:09
11/07/24 04:09
Labs
Hgb 8.6 g/dL (13.0-18.0) L 11/07/24 04:09
Hct 25.7 % (39.0-52.0) L 11/07/24 04:09
Plt Count 255 10^3/uL (130-400) 11/07/24 04:09
PT 19.6 Sec (11.4-14.6) H 11/03/24 13:29
INR 1.63 11/03/24 13:29
APTT 31.1 Sec (23.4-35.0) 11/03/24 13:29
Sodium 131 mmol/L (135-145) L 11/07/24 04:09
Potassium 4.6 mmol/L (3.5-5.1) 11/07/24 04:09
BUN 16 mg/dl (9-20) 11/07/24 04:09
Creatinine 0.9 mg/dL (0.7-1.3) 11/07/24 04:09
Glucose 138 mg/dl (70-99) H 11/07/24 04:09
Vital Signs and I&O:
Vital Signs
Temp Pulse Resp BP Pulse Ox
98.7 F 98 18 121/69 98
11/07/24 08:00 11/07/24 08:00 11/07/24 08:00 11/07/24 07:43 11/07/24 08:00
Vital Signs
Temp Pulse Resp BP Pulse Ox
98.7 F 98 18 121/69 98
11/07/24 08:00 11/07/24 08:00 11/07/24 08:00 11/07/24 07:43 11/07/24 08:00
Intake & Output
11/05/24 11/06/24 11/07/24 11/08/24
06:59 06:59 06:59 06:59
Intake Total 862.2 / 872.8 604.1 / 614.1 950 / 950 240 / 240
Output Total 1100 / 1130 3800 / 3900 950 / 950
Balance -237.8 / -257.2 -3195.9 / -3285.9 0 / 0 240 / 240
Physical Exam
Physical Exam
General: Well developed, well nourished in NAD.
Neck: Supple, no JVD, HJR, carotids +2 B/L, no bruits bilaterally.
Heart: Non displaced PMI, RRR, no murmurs, No S3, S4, no rubs.
Lungs: scattered rhonchi
sternal dressings noted
Extremities: No clubbing, cyanosis or edema bilaterally.
Neuro: Grossly nonfocal, awake, alert and oriented x3.
--- NOTE | 2024-11-07 10:59 | CM ---
Reviewed chart. Met with Mr. Morgan to review discharge plans. He states he is feeling ell and maybe able to go home soon. He states he has been ambulating in the hallway and did the stairs today. Prior to admission he resdies with his spouse
in a two story home with one step to enter. He has a full flight of steps to get to bedroom/full bathroom. He has a powder room on the firt floor. Prior to admission he wsa independent with ambulation and adls. He does not have any DME in the
home. His spouse works outside of the home but she will check in on him. He also states his son who resides about twenty minutes away will also check in on him. We reviewed a home visit by the Transitional Care NUrse. He is agreeable to a home
visit. Medical work-up in progress. The discharge plan is to return home with his spouse and a home visit by the Transitional Care Nurse when medically stable.
[2024-11-07] MEDS: NSS IV (12:50)
[2024-11-07 12:57] LABS: Glucose - Point of Care 142 mg/dl (70-99)
[2024-11-07] MEDS: NOVOLOG FLEXPEN-MODERATE RESISTANCE SC (13:05)
[2024-11-07] MEDS: TYLENOL PO (14:33)
== END 2024-11-07 14:36 | disposition home or self-care (01) | DRG 233 ==
LOC: CVICU 04:05
PROVIDERS: Anesthesiology; Hospitalist; Internal Medicine Interventional Cardiology; Nuclear Medicine Nuclear Cardiology; Nurse Practitioner; Nurse Practitioner Gerontology; Registered Nurse; ADMITTING PHYSICIAN Hospitalist; ATTENDING PHYSICIAN Thoracic Surgery (Cardiothoracic Vascular Surgery); CONSULT PHYSICIAN Internal Medicine Critical Care Medicine; EMERGENCY PHYSICIAN Student in an Organized Health Care Education/Training Program; OTHER PHYSICIAN Internal Medicine Cardiovascular Disease
PROC: B2111ZZ Fluoroscopy of Multiple Coronary Arteries using Low Osmolar Contrast (ICD-10-PCS; 2024-10-28)
PROC: B2151ZZ Fluoroscopy of Left Heart using Low Osmolar Contrast (ICD-10-PCS; 2024-10-28)
PROC: 4A023N7 Measurement of Cardiac Sampling and Pressure, Left Heart, Percutaneous Approach (ICD-10-PCS; 2024-10-28)
PROC: 02L70CK Occlusion of Left Atrial Appendage with Extraluminal Device, Open Approach (ICD-10-PCS; 2024-11-03)
PROC: 021209W Bypass Coronary Artery, Three Arteries from Aorta with Autologous Venous Tissue, Open Approach (ICD-10-PCS; 2024-11-03)
PROC: 06BP4ZZ Excision of Right Saphenous Vein, Percutaneous Endoscopic Approach (ICD-10-PCS; 2024-11-03)
PROC: 5A1221Z Performance of Cardiac Output, Continuous (ICD-10-PCS; 2024-11-03)
PROC: 30233N1 Transfusion of Nonautologous Red Blood Cells into Peripheral Vein, Percutaneous Approach (ICD-10-PCS; 2024-11-03)
PROC: B24BZZ4 Ultrasonography of Heart with Aorta, Transesophageal (ICD-10-PCS; 2024-11-03)
PROC: 02100ZC Bypass Coronary Artery, One Artery from Thoracic Artery, Open Approach (ICD-10-PCS; 2024-11-03)
DX: I21.4 Non-ST elevation (NSTEMI) myocardial infarction (principal); I50.31 Acute diastolic (congestive) heart failure; J18.9 Pneumonia, unspecified organism; D62 Acute posthemorrhagic anemia; J98.11 Atelectasis; E87.1 Hypo-osmolality and hyponatremia; J90 Pleural effusion, not elsewhere classified; I25.10 Atherosclerotic heart disease of native coronary artery without angina pectoris; I34.0 Nonrheumatic mitral (valve) insufficiency; E86.1 Hypovolemia; R00.0 Tachycardia, unspecified; N40.0 Benign prostatic hyperplasia without lower urinary tract symptoms; K21.9 Gastro-esophageal reflux disease without esophagitis; I10 Essential (primary) hypertension; E11.36 Type 2 diabetes mellitus with diabetic cataract; E05.90 Thyrotoxicosis, unspecified without thyrotoxic crisis or storm; K76.0 Fatty (change of) liver, not elsewhere classified; D50.9 Iron deficiency anemia, unspecified; D51.9 Vitamin B12 deficiency anemia, unspecified; F51.04 Psychophysiologic insomnia; R06.89 Other abnormalities of breathing; I11.0 Hypertensive heart disease with heart failure; E78.00 Pure hypercholesterolemia, unspecified; Z11.52 Encounter for screening for COVID-19; Z79.82 Long term (current) use of aspirin; Z79.84 Long term (current) use of oral hypoglycemic drugs; Z79.899 Other long term (current) drug therapy; Z82.49 Family history of ischemic heart disease and other diseases of the circulatory system; Z87.891 Personal history of nicotine dependence; Z95.5 Presence of coronary angioplasty implant and graft
CPT/HCPCS: 71045; 71046; 71250; 80048; 80053; 80061; 81003; 81015; 82248; 82330; 82565; 82607; 82728; 82805; 82810; 82947; 82962; 83036; 83540; 83550; 83735; 83880; 84132; 84145; 84302; 84484; 84520; 85014; 85018; 85025; 85027; 85049; 85610; 85730; 86803; 86850; 86900; 86901; 86920; 87040; 87070; 87086; 87205; 87811; 90677; 93005; 93306; 93312; 93320; 93325; 93458; 93880; 93923; 93930; 94002; 96361; 96365; 96366; 96375; 99152; 99153; 99291; C1713; C1760; C1894; G0009; J7197; P9016; P9047; Q9967

== ENCOUNTER 2025-01-22 01:13 | Emergency (ER) | payer BC, SELFPAY ==
[2025-01-22 01:17] VITALS: BP 113/76
[2025-01-22 02:31] LABS: Hematocrit 35.0 % (39.0-52.0); Hemoglobin 10.9 g/dL (13.0-18.0); Mean Corp Hgb Conc. 31.1 g/dL (33.0-37.0); Mean Corpuscular Volume 82.9 fL (80.0-94.0); Nucleated Red Blood Cells % 0 % (-); Platelet Count 299 10^3/uL (130-400); Red Cell Dist. Width 14.6 % (11.5-14.5)
[2025-01-22 02:32] LABS: Urine Character Clear (Clear)
[2025-01-22 02:51] LABS: ALT (SGPT) 17 U/L (0-50); AST (SGOT) 22 U/L (17-59); Albumin 4.4 g/dl (3.5-5.0); Alkaline Phosphatase 38 U/L (38-126); Blood Urea Nitrogen 13 mg/dl (9-20); Calcium 9.0 mg/dl (8.4-10.2); Carbon Dioxide 21 mmol/L (22-30); Chloride 107 mmol/L (98-107); Glucose 118 mg/dl (70-99); Lipase 302 U/L (23-300); Potassium 4.1 mmol/L (3.5-5.1); Sodium 138 mmol/L (135-145); Total Protein 7.5 g/dl (6.3-8.2); eGFR > 60.00
[2025-01-22 02:53] LABS: Urine Squamous Cell 0-2 /LPF (Few)
[2025-01-22 02:55] LABS: Urine Red Blood Cell 0-2 /HPF (0-2)
[2025-01-22 03:16] LABS: Troponin I 0.834 ng/ml
[2025-01-22 03:53] VITALS: BP 118/74
[2025-01-22 03:57] VITALS: BMI 26.9
[2025-01-22 04:00] VITALS: BP 103/64
[2025-01-22 04:29] LABS: Troponin I 0.819 ng/ml
[2025-01-22 05:00] VITALS: BP 109/72
[2025-01-22 06:46] VITALS: BP 95/67
[2025-01-22 07:00] VITALS: BP 100/66
--- NOTE | 2025-01-22 07:14 | ED.GENMED ---
History of Present Illness
General
Chief Complaint: Abdominal Pain
Source: patient
Exam Limitations: none
Time Seen by Provider: 01/22/25 03:28
Nursing documentation reviewed up to this point in time: agreed with
History of Present Illness
History of Present Illness:
Note:
CHIEF COMPLAINT(S)
Gastroesophageal reflux symptoms, described as 'severe acid reflux' and a sensation mariel to 'fireburn' over the last 3 to 5 days.
HISTORY OF PRESENT ILLNESS
The patient is a 69-year-old male with a history of multiple open-heart surgeries, presenting with symptoms suggestive of significant gastroesophageal reflux disease (GERD) characterized by severe acid reflux and a 'fireburn' sensation persisting
for approximately 3 to 5 days. The patient reports these symptoms worsen when lying down. He denies experiencing chest pain or significant shortness of breath, although admits to occasional mild dyspnea.
The patient has a history of open-heart surgeries and does not currently see a marine safety officer regularly but has a follow-up planned. There is a noted lapse in medication adherence; he is on medications such as Plavix but failed to take another
prescribed medication post-discharge. The patient has also been consuming excessive amounts of caffeine, reportedly 'a lot' more than usual in the form of coffee.
The patient confirms a history of smoking but did not specify the current status of smoking habits.
PAST MEDICAL AND SURGICAL HISTORY
History of multiple open-heart surgeries.
CHRONIC MEDICAL CONDITIONS SIGNIFICANTLY AFFECTING CARE
History of heart disease requiring multiple open-heart surgeries.
SOCIAL HISTORY
The patient has a history of smoking; however, the current status of smoking habits was not explicitly stated.
MEDICATIONS
The patient is taking Plavix but has a history of non-adherence to additional prescribed medications post-surgery.
REVIEW OF SYSTEMS
- Gastrointestinal: Severe symptoms of acid reflux.
- Respiratory: Occasional mild shortness of breath, denies significant respiratory distress.
- Cardiovascular: No current chest pain.
PHYSICAL EXAM
General: Alert, no acute distress.
Skin: Warm, dry.
Head: Normocephalic, atraumatic.
Neck: Supple, trachea midline.
Eye Ears, nose, mouth, and throat: Oral mucosa moist.
Cardiovascular: Normal peripheral perfusion, No edema.
Respiratory: Respirations are non-labored.
Gastrointestinal: Abdomen nondistended.
Back: Normal range of motion, Normal alignment.
Musculoskeletal: Normal range of motion, normal strength.
Neurological: Alert and oriented to person, place, time, and situation, No focal neurological deficit observed.
Psychiatric: Cooperative, appropriate mood & affect.
PROBLEM LIST
Acute:
- Severe gastroesophageal reflux
Chronic:
- History of heart disease with multiple open-heart surgeries
PLAN
1. Conduct a CT scan of the chest to further investigate the symptoms.
2. Consider revisiting medication adherence, including reviewing and updating prescriptions.
3. Address caffeine intake reduction given its potential exacerbation of GERD symptoms.
4. Encourage follow-up with cardiology as planned, potentially with Dr. Barlow or Dr. Herrera.
DIFFERENTIAL DIAGNOSIS
The Differential Diagnosis includes, in no particular order and is not limited to:
1. Gastroesophageal reflux disease (GERD)
2. Esophagitis
3. Peptic ulcer disease
4. Coronary artery disease
5. Hiatal hernia
6. Cr�s esophagus
7. Gastrointestinal malignancy
8. Esophageal spasm
9. Cardiogenic cause (given history of heart disease)
10. Anxiety-related symptoms
Disposition:
SUMMARY OF ENCOUNTER
The patient, a 69-year-old male, presented with symptoms suggestive of gastroesophageal reflux. He was found to be slightly tachycardic. A CT angiography of the chest and a CT scan of the abdomen and pelvis were performed, with all results reported
as negative. The patient was supposed to be taking pantoprazole (referred to as 'Portonics') but has not been reliably adhering to this regimen.
DISPOSITION
Discharge home.
PLAN
The patient will continue taking pantoprazole as prescribed. He is also given a prescription for carafate. The patient is placed on the chest pain follow-up hotline as he is due to see Dr. Sanches, but the appointment is not until May.
FOLLOW-UP INSTRUCTIONS
Follow-up with Dr. Sanches as scheduled in May.
MEDICATION RECONCILIATION
- Patient to continue pantoprazole.
- Prescription for sucralfate (Carafate) provided.
MEDICAL DECISION MAKING
- Number and Complexity of Problems Addressed: Chronic conditions affecting care include a history of heart disease with multiple open-heart surgeries. Differential diagnosis includes gastroesophageal reflux disease (GERD), esophagitis, peptic ulcer
disease, coronary artery disease, hiatal hernia, Cr�s esophagus, gastrointestinal malignancy, esophageal spasm, possible cardiogenic cause, and anxiety-related symptoms.
- Data:
- Category 1: CT angiography of the chest and CT of the abdomen and pelvis, both independently reviewed and interpreted as negative.
- Category 3: No management discussion required as the diagnostics were negative.
- Risk: Prescription drug management, sucralfate (Carafate) prescribed for GERD management. Consideration of Admission/Observation: Escalation of care including admission/observation was considered given the complexity and risk of the patients
presenting complaint and underlying comorbidities. However, ultimately the patient is deemed safe for outpatient management with close follow-up, as the work-up was reassuring and the patient agreed with discharge plans.
DIAGNOSIS
- Gastroesophageal reflux disease (GERD) (ICD-10: K21.9)
Phy Exam
Physical Exam
Physical Exam:
.
Course
Orders/Labs/Results
Orders:
Orders
01/22/25 01:27
IV Insert/Care/Rem.- Treatment PRN
01/22/25 01:28
ECG [Electrocardiogram (*1)] Urgent
Reason for Study: Other
Other Reason for Exam: reflux
Cardiology Consult: Unknown
EKG- Treatment ONCE
01/22/25 02:22
Complete Blood Count/With Diff Urgent
Comprehensive Metabolic Panel Urgent
Lipase Urgent
Troponin I Urgent
Comment: .
Urinalysis Reflex To Culture Urgent
Date Specimen was Collected: 01/22/25
Time Specimen was Collected: 01:27
Urine Microscopic Reflex Cult Urgent
Urine Culture Urgent
IAN Source: U
Specimen Description:
Date Specimen was Collected: 01/22/25
Time Specimen was Collected: 01:27
01/22/25 03:25
Electrocardiogram (*1) Urgent
Reason for Study: Abdominal Pain
EKG- Treatment ONCE
01/22/25 03:54
Troponin I Urgent
01/22/25 03:59
CT Pe/abd/pel W Urgent
Reason For Exam: PE study, Abd Pain, dyspnea. tachy, elev trop
Abnormal Lab Results
01/22/25 01/22/25
02:22 03:54
RBC 4.22 L 10^6/uL
(4.70-6.10)
Hgb 10.9 L g/dL
(13.0-18.0)
Hct 35.0 L %
(39.0-52.0)
MCH 25.8 L pg
(27.0-31.0)
MCHC 31.1 L g/dL
(33.0-37.0)
RDW 14.6 H %
(11.5-14.5)
Absolute Neuts (auto) 6.6 H 10^3/uL
(1.4-6.5)
Absolute Monos (auto) 0.8 H 10^3/uL
(0.1-0.6)
Carbon Dioxide 21 L mmol/L
(22-30)
Glucose 118 H mg/dl
(70-99)
Troponin I 0.834 H* ng/ml 0.819 H* ng/ml
Lipase 302 H U/L
(23-300)
Leukocyte Esterase Rfl 1+ A
(Negative)
Urine Bacteria (Reflex) Few A
(Negative)
Urine Albumin (Reflex) 1+ A
(Neg - Trace)
01/22/25 02:22
01/22/25 02:22
Vital Signs
Initial and Last Documented VS:
Initial Vital Signs
Temp Pulse Resp BP Pulse Ox
98.2 F 105 20 113/76 100
01/22/25 01:17 01/22/25 01:17 01/22/25 01:17 01/22/25 01:17 01/22/25 01:17
Last Documented Vital Signs
Temp Pulse Resp BP Pulse Ox
98.2 F 96 20 95/67 99
01/22/25 01:17 01/22/25 06:47 01/22/25 01:17 01/22/25 06:46 01/22/25 06:47
*Pulse Oximetry
SaO2: 99
Oxygen Mode of Delivery: Room air
Patient hypoxic: no
*Critical Care Note
Total Time (30-74mins, 75-104mins- exclusive of procedures): Not Applicable
ED Attending Note
-
Portions of this chart may have been created with voice recognition software.� Occasional wrong word or��sound alike� substitutions may have occurred due to the inherent limitations of voice recognition software.
Discharge Plan
Departure
Patient Disposition: Home (Routine Discharge)
Date of Disposition: 01/22/25
Time of Disposition: 07:17
Patient with high blood pressure during this ER visit?: Yes
Discharge Problem:
GERD (gastroesophageal reflux disease)
Instructions: Acid Reflux and GERD in Adults (DC), Chest Pain DCA Follow Up, BLOOD PRESSURE
Prescriptions:
New
sucralfate 100 mg/mL suspension
1 g PO Q6H PRN (Reason: gerd) Qty: 1000 0RF
No Action
metformin 500 mg Tablet
500 mg PO BID
montelukast 10 mg Tablet
10 mg PO DAILY
rosuvastatin 20 mg Tablet
20 mg PO DAILY
silodosin 8 mg Capsule
8 mg PO DAILY
clopidogrel 75 mg Tablet
75 mg PO DAILY Qty: 30 2RF
aspirin 81 mg Tablet,Chewable
81 mg PO DAILY Qty: 0 0RF
metoprolol succinate 25 mg Tablet Extended Release 24 Hr
25 mg PO BID Qty: 60 2RF
Referrals:
Master Christine MD [Active, Cardiology]
UNKNOWN - PT DOES,NOT KNOW [Family Provider]
Activity Restrictions/Additional Instructions:
Your prescriptions were sent electronically to the pharmacy that you specified.
Thank You for choosing [facility].
It was a pleasure meeting you and taking part in your care. We hope for your continued healing and wellness.
Please read discharge instructions in their entirety. However, they are for general education and may not describe your exact diagnosis at discharge. Information on your ER visit and medical conditions were discussed with you along with appropriate
follow up information...
If indicated, please take your medications as instructed and indicated on discharge paperwork.
Please schedule a follow up appointment as directed. Call to schedule an appointment
Please return to the emergency department with ANY change in, persisting, or worsening of symptoms. If any of your symptoms do not improve, or persist, or become more severe within 6-12 hours, please return to the emergency department for further
care.
Please return to the emergency department if you develop a headache, neck pain/stiffness, fever greater than 100.4F, chest pain, shortness of breath, persistent nausea, vomiting, slurred speech, difficulty walking, numbness/tingling, weakness, signs
of infection or any other symptoms that are worrisome to you.
If you have any questions or concerns please do not hesitate to call the Hospital at .
Interventions
Interventions:
*Risk Screen - Suicide Last Done: 01/22/25 01:17
*General Assessment Last Done: 01/22/25 01:17
*Neglect/Abuse Screening Last Done: 01/22/25 01:17
*ED- Fall Risk Assessment Last Done: 01/22/25 01:17
*ED COVID-19 Vaccine History Last Done: 01/22/25 01:17
*ED Influenza Vaccine History Last Done: 01/22/25 01:17
[place]-Mmtzft-Rjkipthktp Assessment Last Done: 01/22/25 03:55
Discharge Date and Time
Print Language: BENGALI
== END 2025-01-22 07:28 | disposition home or self-care (01) ==
LOC: EMR 01:13
PROVIDERS: EMERGENCY PHYSICIAN Student in an Organized Health Care Education/Training Program
DX: K21.9 Gastro-esophageal reflux disease without esophagitis (principal); R06.00 Dyspnea, unspecified; Z87.891 Personal history of nicotine dependence; Z98.890 Other specified postprocedural states
CPT/HCPCS: 99284; 71275; 74177; 80053; 81003; 81015; 83690; 84484; 85025; 87086; 93005; Q9967